=== PATIENT | female | born 1955 | race Caucasian/White ===

== ENCOUNTER 2019-05-14 10:22 | Emergency (ER) | payer MEDICARE, SELFPAY ==
--- NOTE | ~2019-05-14 | XR_ITS ---
EXAMINATION: XR chest 2V DATE: 05/14/2019 10:42 INDICATION: Left chest pain. TECHNIQUE: Frontal and lateral views of the chest were obtained. COMPARISON: Chest single view 07/19/2015 FINDINGS: There is mild scarring at the lung apices. No pleural effusion or pneumothorax. The heart s ize is normal. IMPRESSION: 1. Mild scarring at the lung apices. Reviewed, dictated and finalized at location A. RACT ENGINEER
--- NOTE | ~2019-05-14 | CT_ITS ---
EXAMINATION: CTA chest PE abdomen pel DATE: 05/14/2019 11:46 INDICATION: Left chest pain. TECHNIQUE: Computed tomography angiography (CTA) of the chest was performed with 100 mL Omnipaque-350 intravenous contrast timed to evaluate the pulmonary arteries. Coronal maximum intensity projection 3D-reconstructions were created by the technologist. Computed tomography (CT) of the abdomen and pelv is was performed with intravenous contrast. Automated exposure control and iterative reconstruction t echnique were employed. The dose-length product was 589.71 mGy-cm. COMPARISON: None. FINDINGS: CTA chest: There is mild emphysema. There is an 8 mm groundglass opacity in right lower lobe, likely benign. A calcified left lung nodule and calcified left hilar lymph nodes are consistent with old gra nulomatous disease. No pleural effusion. The heart size is normal. There are coronary artery calcific ations. No pericardial effusion. There is no pulmonary embolus. There is mild aortic atherosclerosis. There is mild thoracic spondylosis. CT abdomen and pelvis: The liver, gallbladder, pancreas, and adrenal glands are normal. Calcification s in the spleen are consistent with old granulomatous disease. There is a 6.1 cm cyst in right kidney . Left kidney is normal. There are no dilated loops of bowel. The appendix is normal. There are no pa thologically enlarged lymph nodes. There is no free intraperitoneal fluid. There is mild aortic ather osclerosis. There is mild lumbar spondylosis. IMPRESSION: 1. No pulmonary embolus. 2. Mild emphysema. Reviewed, dictated and finalized at location A. IDE POWDER PROCESSOR
--- NOTE | 2019-05-14 10:24 | ECG_ITS ---
Measurements Intervals [place] Rate: 92 P: 68 ID: 151 QRS: 52 QRSD: 89 T: 64 QT: 324 QTc: 402 Interpretive Statements SINUS RHYTHM POSSIBLE LEFT ATRIAL ENLARGEMENT BORDERLINE ECG Electronically Signed On 05-14-2019 10:51:35 AUDITING SPECIALIST by Alexx Crook D.O.
[2019-05-14 10:45] VITALS: BP 130/87; PULSE 102; RESP 18; TEMP 36.6; O2SAT 100
--- NOTE | 2019-05-14 10:50 | ED.CHESTPAIN ---
HPI - Chest Pain General Chief Complaint: Chest Pain Stated Complaint: chest pain Time Seen by Provider: 05/14/19 10:47 Source: patient Mode of arrival: ambulatory Limitations: no limitations History of Present Illness HPI narrative: Pt is a 63 y/o female who presents to the ED with c/o LUQ ABD pain/left lower CP that worsened Monday (2 days ago). She states that she has had mild pain for a while, but last night her pain worsened. She denies SOB or worsened pain when taking a deep breath. Pt states that her pain is aggravated at night when she is laying down. Pt occasionally gets pain that radiates to her back and she reports a cough. She denies back pain, shoulder pain, jaw pain, sweats, ABD distention, N/V, mid ABD pain, swelling, or leg pain. Pt is a smoker and has a H/o HLD and HTN. She denies a H/o CT, stents, COPD, or emphysema and she denies any recent surgeries. Her PCP is Dr. Anand. complaint: other (LUQ pain/lt lower chest pain.) Onset (ago): day(s) (2) Timing of current episode: episodic Onset: during rest Pain location: left chest (lower) Pain radiation: back Exacerbating factors: other (laying down) Associated symptoms: other (none) Related Data Home Medications Medication Instructions Recorded Confirmed amlodipine 05/14/19 aspirin 05/14/19 bupropion HCl mg PO 05/14/19 cholecalciferol (vitamin D3) 05/14/19 [Vitamin D3] esomeprazole magnesium mg 05/14/19 sertraline mg 05/14/19 simvastatin mg 05/14/19 Allergies Allergy/AdvReac Type Severity Reaction Status Date / Time No Known Allergies Allergy Unverified 05/14/19 11:59 Review of Systems Review of Systems: Narrative: CONSTITUTIONAL: Denies sweats ENT: Denies jaw pain CARDIOVASCULAR: Reports lt lower CP. RESPIRATORY: Reports cough. Denies SOB GASTROINTESTINAL: Reports LUQ ABD pain. Denies nausea, vomiting, ABD distention, mid ABD pain MUSCULOSKELETAL: Denies back pain, shoulder pain, leg pain, leg swelling. All systems reviewed & are unremarkable except as noted in HPI and below PMFSH Past Medical History Medical History (Updated 05/14/19 @ 12:36 by Galina Fitch MD) Arthritis Depression GERD (gastroesophageal reflux disease) History of rectal polyps HLD (hyperlipidemia) HTN (hypertension) TIA (transient ischemic attack) Surgical History Surgical History (Updated 05/14/19 @ 11:59 by Les Mcghee) H/O repair of left rotator cuff H/O tubal ligation Family History Family History (Updated 07/18/18 @ 09:33 by DOCTOR UNKNOWN) Mother Depression Family history of elevated blood lipids Family history of cardiovascular disease Family history of lung cancer Father Hypertension Family history of kidney disease Grandparent Carcinoma of colon Sibling Family history of sudden Social History Social History Smoking status: Light tobacco smoker Second hand tobacco smoke exposure: No Alcohol intake: current Gender identity (if verbalized by the patient): Female Exam Narrative: Exam Narrative: GENERAL: Well-appearing, well-nourished, and in no acute distress. HEAD: Normocephalic, atraumatic. EYES: PERRLA and EOMI. ENT: Nares clear, no rhinorrhea or epistaxis. Mucous membranes moist. NECK: Supple. CHEST: Coarse breath sounds and lt sided wheezing. No respiratory distress. HEART: Regular rate and rhythm. No murmur heard. Normal peripheral pulses. ABDOMEN: Soft, LUQ tenderness, nondistended, normal active bowel sounds. No flank tenderness EXTREMITIES: Normal range of motion. No edema. SKIN: Warm, dry, no rash. NEURO: No focal deficits. Alert and oriented X3. Course Course Emergency Course: Patient presenting for evaluation of left lower chest pain abdominal pain that has been present over the past 2 days. At the time of initial assessment, ABCs are intact. Vital signs are stable. Physical exam is notable for left upper quadrant tenderness, there is n
[2019-05-14 10:53] LABS: Basophils Percent Auto 0.5 % (0.2-1.2); Eosinophils Absolute Auto 0.1 K/mm3 (0-0.3); Eosinophils Percent Auto 1.7 % (0-4.4); Hematocrit 43.4 % (37.0-47.0); Hemoglobin 14.3 g/dL (12.0-15.0); Immature Granulocyte Absolute 0.02 K/mm3 (0.00-0.031); Immature Granulocyte Percent A 0.2 % (0-0.5); Lymphocytes Absolute Auto 2.22 K/mm3 (0.9-3.2); Lymphocytes Percent Auto 27.7 % (18.3-44.2); Mean Corpuscular HGB Conc 32.9 g/dl (32-36); Mean Platelet Volume 10.2 fl (7.4-10.4); Monocytes Absolute Auto 0.8 K/mm3 (0.1-0.6); Monocytes Percent Auto 10.1 % (2.6-8.5); Neutrophils Absolute Auto 4.8 K/mm3 (1.3-6.7); Neutrophils Percent Auto 59.8 % (45.5-73.1); Platelet Count Result 344 k/mm3 (150-375); Red Blood Count 4.77 M/mm3 (4.2-5.4); Red Cell Distribution Width 13.1 % (11.5-14.5)
[2019-05-14 11:02] LABS: INR 0.9; Prothrombin Time 11.8 Seconds (11.1-14.7)
[2019-05-14 11:03] LABS: Partial Thromboplastin Time 27.5 SECONDS (22.3-36.8)
[2019-05-14 11:21] LABS: Blood Urea Nitrogen 15 mg/dL (7-17); Calcium 9.5 mg/dL (8.4-10.2); Carbon Dioxide 23 mmol/L (22-30); Chloride 102 mmol/L (98-107); Estimated Glomerular Filt Rate > 60; Glucose 113 mg/dL (65-105); Sodium 139 mmol/L (137-145)
[2019-05-14 11:28] LABS: Troponin I < 0.012 ng/mL (0.000-0.034)
[2019-05-14 11:38] LABS: Alanine Aminotransferase 16 U/L (4-35); Albumin Level 4.8 g/dL (3.5-5.1); Alkaline Phosphatase 101 U/L (38-126); Aspartate Amino Transferase 29 U/L (14-36); Bilirubin,Total 0.5 mg/dL (0.2-1.3); Lipase 172 U/L (23-300)
[2019-05-14 11:51] VITALS: PULSE 88; O2SAT 100
[2019-05-14 11:53] VITALS: BP 156/73; PULSE 88; RESP 18; TEMP 36.6; O2SAT 100
[2019-05-14 11:58] LABS: Potassium 4.4 mmol/L (3.4-5.0)
[2019-05-14 12:31] VITALS: BP 125/92; PULSE 78; RESP 13; TEMP 36.6; O2SAT 99
[2019-05-14 12:55] VITALS: BP 125/92; PULSE 82; RESP 9; O2SAT 98
== END 2019-05-14 12:56 | disposition home or self-care (01) ==
PROVIDERS: Emergency Provider Emergency Medicine; PCP Family Medicine
DX: R10.12 Left upper quadrant pain (principal); E78.5 Hyperlipidemia, unspecified; I10 Essential (primary) hypertension; M19.90 Unspecified osteoarthritis, unspecified site; K21.9 Gastro-esophageal reflux disease without esophagitis; Z86.73 Personal history of transient ischemic attack (TIA), and cerebral infarction without residual deficits; F17.200 Nicotine dependence, unspecified, uncomplicated; R94.31 Abnormal electrocardiogram [ECG] [EKG]
CPT/HCPCS: 36415; 71046; 71275; 74177; 80048; 80076; 83690; 84484; 85025; 85610; 85730; 93005; 99284; Q9967

== ENCOUNTER → 2020-09-30 10:44 | Outpatient (CLI) | payer MEDICARE, SELFPAY ==
--- NOTE | ~2020-09-30 | DEXA_ITS ---
Bone Density Report Name: Zena Stone Age: 65 Sex: Female Ethnicity: White Date of : 1955 Indication: postmenopausal; screening for osteoporosis; Referring Provider: Lauren Cardona Study: Bone densitometry was performed. Exam Date: September 30, 2020 Accession number: [id number] Bone Density: Region BMD T-score Z-score Classification AP Spine (L1-L4) 0.910 -1.2 0.7 Osteopenia Femoral Neck (Left) 0.785 -0.6 1.0 Normal Total Hip (Left) 0.825 -1.0 0.4 Normal Femoral Neck (Right) 0.745 -0.9 0.7 Normal Total Hip (Right) 0.838 -0.9 0.5 Normal Total Hip Mean 0.832 -1.0 0.5 Normal World Health Organization criteria for BMD impression classify patients as: Normal (T-score at or above -1.0), Osteopenia (T-score between -1.0 and -2.5), or Osteoporosis (T-score at or below -2.5). 10-year Fracture Risk(1): Major Osteoporotic Fracture 7.5% Hip Fracture 1.0% Reported Risk Factors: [place] (), Neck BMD=0.745, BMI=21.9, smoking (1) FRAX(R) Version 3.08. Fracture probability calculated for an untreated patient. Fracture probability may be lower if the patient has received treatment. Clinical Information Provided by Patient: Smokes Patient maximum height was 63.3 Menopause Age: 47 Drinks caffeinated beverages Onset of menses at age 10 Number of children 3 Impression: The patient has low bone mass, based on the Total Spine T-score. The patient has an estimated ten-year risk of hip fracture of 1% and an estimated ten-year risk of major fracture of 7.5%, based on the WHO FRAX algorithm. The patient has risk factors, including: smoking. Discussion: BONE DENSITY IS LOW AT ONE OR MORE SKELETAL SITES. This patient's lowest T-score is low at one or more skeletal sites. It meets the World Health Organization's (WHO) criteria for ?low bone mass? (T-score between -1.0 and -2.5). The patient's 10-year risk of fracture as calculated by FRAX is less than the threshold where pharmacological therapy is recommended by the National Osteoporosis Foundation (NOF). However, all treatment decisions require clinical judgment and consideration of individual patient factors, including patient preferences, comorbidities, previous drug use, risk factors not captured in the FRAX model (e.g., frailty, falls, vitamin D deficiency, increased bone turnover, interval significant decline in bone density) and possible under or overestimation of fracture risk by FRAX. The patient should follow a healthful lifestyle (good nutrition with adequate calcium and vitamin D, and appropriate weight-bearing exercise). Follow-Up: Consider repeating this study in 2 to 3 years to reassess this patient's status, or sooner if there is some new clinical indication. Reported by: RUBI on 09/30/2020 11:07:00 AM.
--- NOTE | ~2020-09-30 | MM_ITS ---
EXAMINATION: MM screening ara BI w blaine HISTORY: Screening TECHNIQUE: Craniocaudal and mediolateral oblique 3-D tomosynthesis images were obtained and synthetic 2-D images were generated. CAD analysis was submitted and interpreted. COMPARISON: No prior mammogram is available for comparison at this institution. BREAST PARENCHYMAL COMPOSITION: There are scattered areas of fibroglandular density. FINDINGS: There is no evidence of suspicious mass, calcification, or architectural distortion to sugg est malignancy in either breast. There has been no suspicious interval change. IMPRESSION: 1. No mammographic evidence of malignancy. 2. Recommend routine screening mammography in one year. BI-RADS Category 1: Negative Reviewed, dictated and finalized at location A.
== END ==
PROVIDERS: PCP Family Medicine; Visit Provider Physician Assistant
DX: Z12.31 Encounter for screening mammogram for malignant neoplasm of breast (principal); Z78.0 Asymptomatic menopausal state; M85.88 Other specified disorders of bone density and structure, other site
CPT/HCPCS: 77063; 77067; 77080

== ENCOUNTER 2021-02-12 15:10 | Outpatient (CLI) | payer MEDICARE, SELFPAY ==
[2021-02-12 16:03] LABS: Anion Gap 8 mmol/L (8-16); Blood Urea Nitrogen 10 mg/dL (7-17); Calcium 9.4 mg/dL (8.4-10.2); Carbon Dioxide 30 mmol/L (22-30); Chloride 97 mmol/L (98-107); Estimated Glomerular Filt Rate > 60; Glucose 105 mg/dL (65-110); Potassium 4.2 mmol/L (3.4-5.0); Sodium 135 mmol/L (137-145)
== END 2021-02-12 15:11 | disposition home or self-care (01) ==
LOC: ANHLAB 15:13
PROVIDERS: PCP Family Medicine; Visit Provider Physician Assistant
DX: E87.5 Hyperkalemia (principal)
CPT/HCPCS: 36415; 80048

== ENCOUNTER → 2021-04-12 09:28 | Outpatient (CLI) | payer MEDICARE, SELFPAY ==
--- NOTE | ~2021-04-12 | XR_ITS ---
EXAMINATION: XR chest 2V DATE: 04/12/2021 09:44 INDICATION: Shortness of breath. TECHNIQUE: Frontal and lateral views of the chest were obtained. COMPARISON: Chest CT 05/14/2019, chest 2 views 05/14/2019 FINDINGS: There is a thick-walled cavitary mass with air/fluid level in superior segment left lower l obe. There are airspace opacities in lingula. No pleural effusion or pneumothorax. The heart size is normal. IMPRESSION: 1. Thick-walled cavitary mass in superior segment left lower lobe, consistent with abscess versus andrea evelio bronchogenic carcinoma. Chest CT with contrast is recommended. 2. Airspace opacities in lingula, consistent with atelectasis versus pneumonia. Reviewed, dictated and finalized at location A. DDED SOFTWARE DEVELOPMENT ENGINEER IMPRESSION: 1. Thick-walled cavitary mass in superior segment left lower lobe, consistent w ith abscess versus primary bronchogenic carcinoma. Chest CT with contrast is re commended. 2. Airspace opacities in lingula, consistent with atelectasis versus pneumonia.
== END ==
PROVIDERS: PCP Family Medicine; Visit Provider Physician Assistant
DX: R06.02 Shortness of breath (principal); R91.8 Other nonspecific abnormal finding of lung field
CPT/HCPCS: 71046

== ENCOUNTER 2021-04-15 07:49 | Outpatient (CLI) | payer MEDICARE, SELFPAY ==
--- NOTE | ~2021-04-15 | CT_ITS ---
EXAMINATION:CT diagnostic chest w con DATE: 04/15/2021 08:24 INDICATION: Abnormal findings in lung field. Lung mass. TECHNIQUE: Computed tomography (CT) of the chest was performed with 75 mL Omnipaque 350 intravenous c ontrast. Automated exposure control and iterative reconstruction technique were employed. The dose-le ngth product (DLP) was 131.31 mGy-cm. COMPARISON: Chest CT 05/14/2019, chest 2 views 04/12/2021 FINDINGS: There is mild emphysema. There is a 1.5 cm part solid nodule in right lower lobe, likely in fection. There is an 8.4 x 6.9 cm thick-walled cavitary mass with air/fluid level in left lower lobe. There are airspace and groundglass opacities and septal thickening involving left lower lobe around the mass and at the lung base. Calcified left lung nodules and calcified left hilar and mediastinal l ymph nodes are consistent with old granulomatous disease. There is bulky left hilar and aorticopulmon preethi window lymphadenopathy with mass effect on left main pulmonary artery. There is a trace left pleu ral effusion. The heart size is normal. There is a small pericardial effusion. There are coronary art benja calcifications. There is a 6.3 cm cyst in right kidney. There is mild thoracic spondylosis. IMPRESSION: 1. 8.4 x 6.9 cm thick-walled cavitary mass with air/fluid level in left lung lower lobe suspicious fo r primary bronchogenic carcinoma. CT-guided core needle biopsy is recommended. 2. Bulky left hilar and aorticopulmonary window lymphadenopathy suspicious for metastatic disease. 3. Airspace and groundglass opacities and septal thickening in left lower lobe and part solid nodule in right lower lobe, likely a combination of pneumonia and mild pulmonary edema. 4. Mild emphysema. 5. Small pericardial effusion. Reviewed, dictated and finalized at location E. SORTER IMPRESSION: 1. 8.4 x 6.9 cm thick-walled cavitary mass with air/fluid level in left lung lo wer lobe suspicious for primary bronchogenic carcinoma. CT-guided core needle b iopsy is recommended. 2. Bulky left hilar and aorticopulmonary window lymphadenopathy suspicious for metastatic disease. 3. Airspace and groundglass opacities and septal thickening in left lower lobe and part solid nodule in right lower lobe, likely a combination of pneumonia an d mild pulmonary edema. 4. Mild emphysema. 5. Small pericardial effusion.
[2021-04-15 08:14] LABS: Estimated Glomerular Filt Rate > 60
== END 2021-04-15 07:50 | disposition home or self-care (01) ==
LOC: ANHIMG 07:54
PROVIDERS: PCP Family Medicine; Visit Provider Physician Assistant
DX: R91.8 Other nonspecific abnormal finding of lung field (principal); R59.0 Localized enlarged lymph nodes; J43.9 Emphysema, unspecified; I31.3 Pericardial effusion (noninflammatory)
CPT/HCPCS: 71260; Q9967

== ENCOUNTER 2021-04-16 11:38 | Inpatient (IN) | payer MEDICARE, MEDICAID, SELFPAY ==
[2021-04-16] VITALS (18 sets, daily range): BP systolic 80–124; BP diastolic 44–63; PULSE 95–124; RESP 16–24; TEMP 36.2–37.8; O2SAT 92–99; BMI 22.9
--- NOTE | ~2021-04-16 | XR_ITS ---
EXAMINATION: XR fl bronchoscopy w imaging DATE: 04/22/2021 11:26 INDICATION: Left lung abscess TECHNIQUE: 2 fluoroscopic images of the left chest were obtained during procedure performed by Dr. Claudia rodrigues. Radiologist was not present for the imaging or procedure. The amount of fluoroscopy time used d uring this procedure was 1.1 minutes. COMPARISON: CT dated 04/22/2021 FINDINGS: Images demonstrate a bronchoscope extending into the left mainstem bronchus. On the second image the proximal loop is been advanced and the wire extends peripherally towards the previously noted thick-w alled cavitary mass. IMPRESSION: 1. Fluoroscopy utilized during bronchoscopy for assessment of a left lower lobe cavitary mass. See pr ocedure note for further detail. Reviewed, dictated and finalized at location A. NISTRATIVE PROJECT COORDINATOR IMPRESSION: 1. Fluoroscopy utilized during bronchoscopy for assessment of a left lower lobe cavitary mass. See procedure note for further detail.
--- NOTE | ~2021-04-16 | XR_ITS ---
EXAMINATION: XR chest 1V portable DATE: 04/22/2021 11:35 INDICATION: Left lung abscess post bronchoscopy TECHNIQUE: frontal view of the chest was obtained. COMPARISON: Chest radiograph dated 04/21/2021 FINDINGS: Air-fluid level within a thick-walled cavitary mass in the left lung which is decreased in size since the prior study. Right lung is clear. No pleural effusion or pneumothorax. The cardiomediastinal tiffanie houette is normal. Visualized bones and soft tissues are unremarkable. IMPRESSION: 1. Slight decrease in size of a gas and fluid-filled thick-walled cavitary mass in the left lower lob e concerning for pneumonia with pulmonary abscess with less likely differential including malignancy. Reviewed, dictated and finalized at location A. Y OPERATOR IMPRESSION: 1. Slight decrease in size of a gas and fluid-filled thick-walled cavitary mass in the left lower lobe concerning for pneumonia with pulmonary abscess with le ss likely differential including malignancy.
--- NOTE | ~2021-04-16 | XR_ITS ---
EXAMINATION: XR chest 1V portable DATE: 04/21/2021 08:22 INDICATION: Left lung abscess TECHNIQUE: frontal view of the chest was obtained. COMPARISON: Chest radiograph dated 04/19/2021 FINDINGS: Slight decrease in size of a thick-walled cavitary mass containing some dependently layering fluid lo cated in the left lower lung zone. Mild reticular opacities in the left lower lung zones which could represent mild pulmonary edema or pneumonia. Right lung remains clear. No pneumothorax or right pleur al effusion. Trace left pleural effusion. Heart size is normal. Mediastinal lymphadenopathy at the AP window. IMPRESSION: 1. Slight decrease in size of a thick-walled cavitary lesion in the left midlung zone consistent with provided history of pulmonary abscess. 2. Mild reticular pulmonary edema versus pneumonia in the left lower lung zone. 3. AP window lymphadenopathy. Reviewed, dictated and finalized at location A. E MACHINE OFFBEARER IMPRESSION: 1. Slight decrease in size of a thick-walled cavitary lesion in the left midlun g zone consistent with provided history of pulmonary abscess. 2. Mild reticular pulmonary edema versus pneumonia in the left lower lung zone. 3. AP window lymphadenopathy.
--- NOTE | ~2021-04-16 | XR_ITS ---
EXAMINATION: XR chest 1V portable EXAM DATE: 04/19/2021 09:04 INDICATION: Left lung cavity TECHNIQUE: Portable AP frontal chest x-ray was obtained. Comparison is made to prior examination from 04/16/2021. FINDINGS: Large left midlung zone cavitary mass with air-fluid level unchanged. Increased reticular m arkings inferior to this without confluent consolidation. Possible carcinomatosis. The lungs are hype rinflated which can be seen with chronic obstructive pulmonary disease (a clinical diagnosis of funct ional impairment), but is not diagnostic of it. There is no pneumothorax suspected. There are no pleu ral effusions. There are no osseous abnormalities identified. There is aortic arteriosclerosis. Cardi omediastinal silhouette is normal. IMPRESSION: 1. Large left midlung cavitary mass with air fluid level and adjacent abnormal reticulation unchanged . 2. Hyperinflation. Reviewed, dictated and finalized at location B. Y FARMER IMPRESSION: 1. Large left midlung cavitary mass with air fluid level and adjacent abnormal reticulation unchanged. 2. Hyperinflation.
--- NOTE | ~2021-04-16 | CT_ITS ---
EXAMINATION: CT diagnostic chest wo con EXAM DATE: 04/22/2021 07:42 INDICATION: Left lung abscess . TECHNIQUE: Spiral CT of the chest without contrast. Axial, coronal and sagittal images of the chest were reviewed. Coronal maximum intensity pixel images of chest reviewed. The dose-length product ( DLP) for this examination was 145.05 mGy-cm. The exposure was tailored according to patient size (au to mA exposure control), and iterative reconstruction (ASIR) was used as additional dose reduction te chnique. Comparison is made to prior examination from 04/15/2021. FINDINGS: There is thick walled left lower lobe cavitary mass, with interval decrease in size of the cystic component which today measures 5.6 x 4.3 cm versus 8.0 x 5.3 cm one week ago. The wall of this cavitary lesion appears thicker than on prior study. Again there is trace left pleural effusion. Tra ce pericardial effusion. Heart normal in size. Mild emphysema and moderate hyperinflation. Small patc h of right lower lobe reticulonodular opacities, infectious or postinfectious. Mild coronary artery c alcifications. Pathologically enlarged left hilar and aortopulmonary window lymph nodes, one of the larger lymph nod es in the aortopulmonary window measuring 2.3 x 1.8 cm. Faint calcification pattern somewhat peripher al in the hilar lymph nodes suggesting chronic granulomatous process such as silicosis, pneumoconiosi s, sarcoidosis, histoplasmosis. Metastatic lymphadenopathy not excludable. Right renal cyst measuring 6 cm. IMPRESSION: 1. Cavitary left lung mass with air-fluid level, could be infected abscess with or without underlyin g malignancy. Decrease in size of cavity size. 2. Enlarged left hilar, mediastinal lymphadenopathy, differential diagnosis including chronic granul omatous process, metastatic disease. 3. Emphysema and hyperinflation. 4. Small pericardial effusion. Reviewed, dictated and finalized at location B. LE SCHOOL SCIENCE TEACHER IMPRESSION: 1. Cavitary left lung mass with air-fluid level, could be infected abscess wit h or without underlying malignancy. Decrease in size of cavity size. 2. Enlarged left hilar, mediastinal lymphadenopathy, differential diagnosis in cluding chronic granulomatous process, metastatic disease. 3. Emphysema and hyperinflation. 4. Small pericardial effusion.
--- NOTE | ~2021-04-16 | XR_ITS ---
EXAMINATION: XR chest 2V DATE: 04/16/2021 12:19 INDICATION: COVID 2 weeks prior presenting with new onset shortness of breath TECHNIQUE: PA and lateral views of the chest were obtained. COMPARISON: Chest radiograph dated 04/12/2021 FINDINGS: Again seen is an air-fluid level within a thick-walled cavitary mass in the superior segment of the l eft lower lobe. Persistent mild primarily reticular opacities in the more caudal left lower lobe. No new airspace opacities, pleural effusion or pneumothorax. Heart size is normal. Mild thoracic spondyl osis. IMPRESSION: 1. Unchanged air-fluid level within a thick-walled cavitary mass in the superior segment of the left lower lobe concerning for primary bronchogenic carcinoma. 2. Reticular opacities in the left lower lobe which could represent pneumonia or lymphangitic carcino matosis. Reviewed, dictated and finalized at location A. N CAPITAL ANALYST IMPRESSION: 1. Unchanged air-fluid level within a thick-walled cavitary mass in the superio r segment of the left lower lobe concerning for primary bronchogenic carcinoma. 2. Reticular opacities in the left lower lobe which could represent pneumonia o r lymphangitic carcinomatosis.
--- NOTE | ~2021-04-16 | XR_ITS ---
EXAMINATION: XR chest 2V DATE: 04/26/2021 10:16 INDICATION: Left lung abscess TECHNIQUE: PA and lateral views of the chest are obtained. COMPARISON: 04/22/2021 FINDINGS: There is a persistent ill-defined opacity in the left lower lobe which demonstrates slight decrease in size. Previously seen cavitation is also decreased in size. There there are minimal airsp steve opacities of the right lower lobe. There is a small left pleural effusion. The cardiomediastinal silhouette is normal. There is mild thoracic spondylosis. IMPRESSION: 1. Decrease in cavitary mass of the left lower lobe, likely pulmonary abscess. Pulmonary cytology pen ding. 2. Small left pleural effusion. Reviewed, dictated and finalized at location A. ER RUNNER IMPRESSION: 1. Decrease in cavitary mass of the left lower lobe, likely pulmonary abscess. Pulmonary cytology pending. 2. Small left pleural effusion.
--- NOTE | ~2021-04-16 | US_ITS ---
EXAMINATION: US renal BI EXAM DATE: 04/22/2021 16:01 INDICATION: TINA/ARF TECHNIQUE: Multiple grayscale and Doppler images of the kidneys were obtained (by a technologist who performed the scan) and subsequently reviewed. There is no prior study for comparison. FINDINGS: Right kidney: There is normal contour and mildly increased echogenicity. It measures 13.6 x 5.9 x 6. 9 centimeters. There is a 5 cm cyst. There is no hydronephrosis. Left kidney: There is normal contour and mildly increased echogenicity. It measures 12.2 x 6.3 x 5.2 centimeters. There are no focal renal lesions identified. There is no hydronephrosis. Bladder unremarkable. IMPRESSION: 1. Mildly echogenic renal cortices, medical renal disease. 2. No hydronephrosis. Reviewed, dictated and finalized at location B. RWRITING CONSULTANT
--- NOTE | 2021-04-16 12:05 | ECG_ITS ---
Measurements Intervals [place] Rate: 114 P: 82 [place]: 126 QRS: 58 QRSD: 86 T: 57 QT: 300 QTc: 414 Interpretive Statements SINUS TACHYCARDIA BASELINE ARTIFACT- I, II, III, AVR, AVL, AVF, V1-V3 ABNORMAL ECG Electronically Signed On 04-16-2021 12:11:27 SENIOR QUALITY ASSURANCE ANALYST by Alexx Crook D.O.
--- NOTE | 2021-04-16 12:30 | ED.SOB ---
HPI - SOB/Dyspnea General Chief Complaint: Shortness of Breath/Dyspnea Stated Complaint: sent to be admitted Time Seen by Provider: 04/16/21 12:16 Source: patient Mode of arrival: ambulatory Limitations: no limitations History of Present Illness HPI Narrative: Patient is a six 5-year-old female complain of shortness of breath, accompanied by cough, low oxygen saturation and fever x2 weeks. Patient states that she is seen her doctor for this a few times and was prescribed Levaquin last week chest x-ray ordered. Patient's PCP recently ordered a CT scan due to the above complaints, was done yesterday at this facility, and was told today she needed to go to the emergency room for IV antibiotics . Patient denies any chest pain, abdominal pain, nausea, vomiting, diarrhea, urinary symptoms or rash. Related Data Home Medications Medication Instructions Recorded Confirmed aspirin 05/14/19 04/05/21 Allergies Allergy/AdvReac Type Severity Reaction Status Date / Time No Known Allergies Allergy Verified 02/08/21 09:49 Review of Systems Review of Systems: All systems reviewed & are unremarkable except as noted in HPI and below Constitutional: Constitutional: Denies body ache(s), Denies excessive sweating, Denies fatigue, Denies headache(s), Denies lethargy, Denies malaise, Denies weakness and Denies weight loss Eyes: Eyes: Denies blurry vision, Denies change in vision and Denies loss of vision ENT: Denies dizziness, Denies ear discharge, Denies headache(s), Denies lip swelling, Denies epistaxis, Denies nasal congestion, Denies neck pain, Denies throat swelling and Denies tongue swelling Cardiovascular: Cardiovascular: Denies chest pain, Denies chest pain at rest, Denies chest pain with activity, Denies diaphoresis, Denies rapid heart rate, Denies edema, Denies irregular heart rhythm, Denies lightheadedness and Denies palpitations Respiratory: Respiratory: Denies chest congestion, Denies cough and Denies hemoptysis Gastrointestinal: Gastrointestinal: Denies abdominal pain, Denies melena, Denies hematochezia, Denies diarrhea, Denies nausea, Denies vomiting and Denies hematemesis Musculoskeletal: Musculoskeletal: Denies abnormal gait, Denies deformity, Denies joint swelling, Denies limited range of motion, Denies neck pain and Denies numbness Neurologic: Denies Abnormal speech present, Denies abnormal gait, Denies confusion, Denies dizziness, Denies headache(s), Denies focal weakness, Denies loss of vision, Denies numbness, Denies Other visual disturbances, Denies Sensory deficit (Neuro) and Denies weakness Psychiatric: Psychiatric: Denies confusion, Denies depression, Denies auditory hallucinations, Denies homicidal ideation and Denies suicidal ideation Endocrine: Endocrine: Denies cold intolerance, Denies excessive sweating, Denies fatigue, Denies heat intolerance and Denies palpitations Hematologic/Lymphatic: Hematologic/Lymphatic: Denies easy bleeding and Denies easy bruising Allergic/Immunologic: Allergic/Immunologic: Denies lip swelling, Denies throat swelling and Denies tongue swelling PMFSH Past Medical History Medical History Arthritis Depression GERD (gastroesophageal reflux disease) History of COVID-19 History of rectal polyps HLD (hyperlipidemia) HTN (hypertension) TIA (transient ischemic attack) Surgical History Surgical History H/O repair of left rotator cuff H/O tubal ligation Family History Family History Mother Depression Family history of elevated blood lipids Family history of cardiovascular disease Family history of lung cancer Father Hypertension Family history of kidney disease Grandparent Carcinoma of colon Sibling Family history of sudden Social History Social History (Reviewed 04/16/21 @ 12:34 by George Ritter
[2021-04-16 13:16] LABS: Hemoglobin 12.3 g/dL (12.0-15.0); Mean Corpuscular HGB Conc 33.2 g/dl (32-36); Mean Corpuscular Hemoglobin 29.5 pg (26-34); Mean Corpuscular Volume 88.7 fl (80-100); Mean Platelet Volume 9.2 fl (7.4-10.4); Platelet Count Result 641 k/mm3 (150-375); Red Blood Count 4.17 M/mm3 (4.2-5.4); Red Cell Distribution Width 13.2 % (11.5-14.5)
[2021-04-16 13:27] LABS: INR 1.1; Prothrombin Time 14.5 Seconds (11.1-14.7)
[2021-04-16 13:28] LABS: Lactic Acid Reflex 1.1 mmol/L (0.7-2.1)
[2021-04-16] MEDS: ACETAMINOPHEN 325 MG TABLET 650 MG PO (13:31)
[2021-04-16 13:36] LABS: Alanine Aminotransferase 19 U/L (4-35); Albumin Level 3.3 g/dL (3.5-5.1); Alkaline Phosphatase 156 U/L (38-126); Anion Gap 7 mmol/L (8-16); Aspartate Amino Transferase 30 U/L (14-36); Bilirubin,Total 0.5 mg/dL (0.2-1.3); Blood Urea Nitrogen 14 mg/dL (7-17); Calcium 8.8 mg/dL (8.4-10.2); Carbon Dioxide 29 mmol/L (22-30); Chloride 94 mmol/L (98-107); Estimated CRCL calculation 56 ml/min; Estimated Glomerular Filt Rate > 60; Glucose 104 mg/dL (65-110); Potassium 3.9 mmol/L (3.4-5.0); Sodium 130 mmol/L (137-145)
[2021-04-16 13:44] LABS: Band Neutrophils Percent 1 % (0-6); Lymphocytes Absolute Manual 1.35 K/mm3 (1.1-4.5); Monocytes Absolute Manual 2.43 K/mm3 (0.1-0.90); Monocytes Percent Manual 9 % (3-9); Neutrophils Absolute Manual 23.22 K/mm3 (1.7-7.2); Neutrophils Percent Manual 85 % (46-73); Total Cells Counted 100
[2021-04-16 13:45] LABS: Platelet Estimate Adequate (Adequate)
[2021-04-16 13:46] LABS: Hypochromasia 1+ (NORMAL)
[2021-04-16] MEDS: ALBUTEROL SULFATE NEB 2.5 MG/0.5 ML INH 5 MG INHALATION ×2 (14:21→19:54)
[2021-04-16] MEDS: IPRATROPIUM BR 0.02% INH SOLN 0.5 MG/2.5 ML VIAL INHALATION ×2 (14:21→19:54)
[2021-04-16] MEDS: PIPERACILLIN/TAZOBACTAM SOD 4.5 GM in SODIUM CHLORIDE 0.9% IV 100 ML 200 ML IVPB (14:26)
[2021-04-16] MEDS: DEXAMETHASONE SOD PHOS INJ 4 MG/ML VIAL 10 MG IV PUSH (14:26)
[2021-04-16 14:29] LABS: SARS-CoV-2 RNA PCR Negative
--- NOTE | 2021-04-16 15:50 | PM.IMHP ---
H&P: HPI History of Present Illness Date/Time: 04/16/21 15:50 Chief Complaint: Cough, abnormal chest imaging. Narrative: This is a 65-year-old female smoker with hypertension and hyperlipidemia who presented to the emergency department from Dr. zelaya office for evaluation of cough and abnormal chest imaging. She tested positive for COVID-19 on 02/28/2021 and she seemed to be feeling better right around the new year, able to do her typical activities of daily living. Over the past 7 to 10 days however her cough has become worse and it is now productive of [place] and occasionally pink-tinged brown to green sputum. She has also developed left-sided pleuritic chest pain, mild shortness of breath, sweats, fatigue, decreased appetite, and poor oral intake. Due to ongoing symptoms she was seen by Lauren Cardona PA-C on 04/05/2021 at which time she was prescribed a prednisone taper and levofloxacin. She completed the antibiotic and had a chest x-ray done the following week which showed a thick-walled cavitary mass in the superior segment of the left lower lobe consistent with abscess verses primary bronchogenic carcinoma. A subsequent chest CT taken yesterday showed an 8.4 x 6.9 cm thick walled cavitary mass with air/fluid level in the left lower lobe suspicious for primary bronchogenic carcinoma with bulky left hilar and aortic or pulmonary window lymphadenopathy suspicious for metastatic disease and findings of pulmonary edema and/ or mild pulmonary edema in the lower lobes. No pulmonary embolism was noted. She was seen in the office today for follow-up and due to ongoing cough, pleuritic pain, and CT findings she was directed to the emergency department. On arrival to the emergency department she had a low-grade temperature of 100.1? and her blood pressures have been running in the high 80s to low 90s systolic. She was not feeling febrile but again mentions having sweats and occasional chills. She denies headache, neck ache, sinus congestion, sore throat, exertional chest pain, orthopnea, PND, lower extremity edema, vomiting, and diarrhea. She has not lost any weight recently but notes a 25 lb weight loss in the last year or so. In fact she lost enough weight that her amlodipine dose was cut in half several months ago. She does not monitor her blood pressure at home and she is asymptomatic with her soft blood pressures today. Review of Systems Review of Systems: Twelve systems were reviewed and are negative except for as per HPI. [facility] Past Medical History Medical History (Updated 04/16/21 @ 15:05 by Jina Fried PA-C) Arthritis COVID-19 (02/2021) Depression Gastroesophageal reflux disease History of rectal polyps Hyperlipidemia Hypertension Tobacco abuse Transient ischemic attack (07/2015) Surgical History Surgical History (Updated 04/16/21 @ 14:58 by Jina Fried PA-C) History of colonoscopy with polypectomy History of repair of left rotator cuff History of tubal ligation Family History Family History Mother Lung cancer Father Hypertension Congestive heart failure Renal failure Grandparent Carcinoma of colon Sibling Acute myocardial infarction Social History Social History (Updated 04/16/21 @ 21:02 by Jina Fried PA-C) Social History: Surrogate decision maker: [place], . Code status: Full code. Smoking packs per day: 1 Smoking cigarettes per day: 20.0 Years smoked: 45 Smoking pack-years: 45.00 Tobacco type: cigarettes Second hand tobacco smoke exposure: No Alcohol intake: never Substance use: never Substance use type: does not use Additional living arrangements comments: The patient lives with her in [place]. Additional occupation/education comments: Retired. Meds Home Medications and Allergies Home Medications Medication Instructions Recorded Confirmed Type aspirin 81 mg PO DAILY
--- NOTE | 2021-04-16 16:35 | PC.NURSE ---
ordered pt dinner tray.
[2021-04-16] MEDS: LACTATED RINGERS 1,000 ML 125 ML IV CONT (16:36)
[2021-04-16 22:25] LABS: Anion Gap 6 mmol/L (8-16); Blood Urea Nitrogen 15 mg/dL (7-17); Calcium 8.2 mg/dL (8.4-10.2); Carbon Dioxide 24 mmol/L (22-30); Chloride 100 mmol/L (98-107); Estimated CRCL calculation 56 ml/min; Estimated Glomerular Filt Rate > 60; Glucose 242 mg/dL (65-110); Magnesium 1.4 mg/dL (1.6-2.3); Potassium 3.9 mmol/L (3.4-5.0); Sodium 130 mmol/L (137-145)
--- NOTE | 2021-04-16 22:25 | ADMGEN ---
This patient, Zena Stone, was admitted to IMU Room 205-01. Patient/family oriented to hospital policies and general routines including ID bracelet, bed and alarms, visiting hours, pain management, procedures, bathroom and other care routines, personal items, smoking policy, room service/diet, and visiting hours. Information on how to activate the Rapid Response Team has been discussed. Patient/Family are encouraged to report perceived risks to care and to ask questions if they do not understand what they are told or what they should do.
[2021-04-16 22:29] LABS: Procalcitonin 0.3 ng/mL
[2021-04-16 23:29] LABS: Creatinine Urine 96.3 mg/dL
[2021-04-16 23:44] LABS: Sodium Urine Random 23 meq/L
[2021-04-17] VITALS (30 sets, daily range): BP systolic 91–118; BP diastolic 47–73; PULSE 87–112; RESP 16–20; TEMP 35.8–37.2; O2SAT 87–95
[2021-04-17] MEDS: MAGNESIUM SULF 2 GM/WATER 50ML 2 GM/50 ML BAG IVPB (00:13)
[2021-04-17] MEDS: SIMVASTATIN 20 MG TABLET PO ×2 (01:07→21:23)
[2021-04-17] MEDS: IPRATROPIUM BR 0.02% INH SOLN 0.5 MG/2.5 ML VIAL INHALATION ×4 (03:16→20:35)
[2021-04-17] MEDS: ALBUTEROL SULFATE NEB 2.5 MG/0.5 ML INH 5 MG INHALATION ×4 (03:16→20:35)
[2021-04-17 05:01] LABS: Hemoglobin 10.6 g/dL (12.0-15.0); Mean Corpuscular HGB Conc 33.1 g/dl (32-36); Mean Corpuscular Volume 87.4 fl (80-100); Mean Platelet Volume 9.5 fl (7.4-10.4); Platelet Count Result 634 k/mm3 (150-375); Red Blood Count 3.66 M/mm3 (4.2-5.4); Red Cell Distribution Width 13.2 % (11.5-14.5); White Blood Count 24.2 K/mm3 (4.5-10.0)
[2021-04-17 05:38] LABS: Alanine Aminotransferase 17 U/L (4-35); Albumin Level 2.7 g/dL (3.5-5.1); Alkaline Phosphatase 145 U/L (38-126); Anion Gap 7 mmol/L (8-16); Aspartate Amino Transferase 23 U/L (14-36); Bilirubin,Total 0.1 mg/dL (0.2-1.3); Blood Urea Nitrogen 14 mg/dL (7-17); Calcium 8.3 mg/dL (8.4-10.2); Carbon Dioxide 24 mmol/L (22-30); Chloride 99 mmol/L (98-107); Estimated CRCL calculation 56 ml/min; Estimated Glomerular Filt Rate > 60; Glucose 376 mg/dL (65-110); Magnesium 2.3 mg/dL (1.6-2.3); Potassium 3.9 mmol/L (3.4-5.0); Sodium 130 mmol/L (137-145)
[2021-04-17 08:24] LABS: Free T4 Free Thyroxine Reflex 1.01 ng/dL (0.78-2.19)
[2021-04-17] MEDS: DULoxetine HCL 60 MG CAPSULE.DR PO (09:34)
[2021-04-17] MEDS: ENOXAPARIN 40 MG/0.4 ML SYRINGE SUB-Q (09:35)
[2021-04-17] MEDS: ASPIRIN 81 MG CHEWABLE TABLET PO (09:35)
[2021-04-17] MEDS: PANTOPRAZOLE 40 MG TABLET PO (09:35)
[2021-04-17 09:59] LABS: Total Triiodothyronine (T3) 0.45 NG/ML (0.97-1.69)
--- NOTE | 2021-04-17 10:44 | PM.IMPN ---
Progress Note: A&P Assessment and Plan (1) Sepsis: Qualifiers: Sepsis acute organ dysfunction status: unspecified Sepsis type: sepsis due to unspecified organism Qualified Code(s): A41.9 - Sepsis, unspecified organism Code(s): A41.9 - Sepsis, unspecified organism Status: Acute Assessment and Plan: Patient meets criteria for sepsis with fever, tachycardia, leukocytosis, and soft blood pressures in the setting of pneumonia. Lactic acid levels within normal limits. Blood and sputum cultures pending. (2) Pneumonia: Qualifiers: Laterality: unspecified laterality Lung location: unspecified part of lung Pneumonia type: due to unspecified organism Qualified Code(s): J18.9 - Pneumonia, unspecified organism Code(s): J18.9 - Pneumonia, unspecified organism Status: Acute Assessment and Plan: Patient recently finished a course of levofloxacin as an outpatient. Continue Zosyn which was started in the emergency department and add vancomycin for possible post viral pneumonia. Discussed with Dr. Mendez pulmonary was consulted. He agrees with a continuing vancomycin and Zosyn. Sputum culture has been sent and will follow culture (3) Cavitating mass in left lower lung lobe: Code(s): J98.4 - Other disorders of lung Status: Acute Assessment and Plan: Concerning for bronchogenic carcinoma according to CT reading though given sepsis picture she is being treated with broad-spectrum antibiotics as well as detailed above. Radiologist indicates that this is amenable to CT-guided biopsy which can be performed when she is feeling better. Discussed with the intervention Radiology and is amenable for CT-guided biopsy. Will plan for CT-guided biopsy on Monday. Discussed with Dr. Mendez about this findings as well. (4) Tobacco abuse: Code(s): Z72.0 - Tobacco use Status: Acute Assessment and Plan: Smoking cessation is imperative and was discussed. She denies the need for nicotine patch. (5) Hyponatremia: Code(s): E87.1 - Hypo-osmolality and hyponatremia Status: Acute Assessment and Plan: Likely multifactorial in etiology and secondary to underlying lung disease in addition to dehydration from poor oral intake from decreased appetite over the last week and half. She has been adequately hydrated in the emergency department. Line sodium level stable (6) Hypertension: Code(s): I10 - Essential (primary) hypertension Status: Acute Assessment and Plan: Blood pressures have been running soft as detailed above. Hold antihypertensives for now. Subjective Date/time seen: 04/17/21 10:44 Interval history: HPI:This is a 65-year-old female smoker with hypertension and hyperlipidemia who presented to the emergency department from Dr. zelaya office for evaluation of cough and abnormal chest imaging. She tested positive for COVID-19 on 02/28/2021 and she seemed to be feeling better right around the new year, able to do her typical activities of daily living. Over the past 7 to 10 days however her cough has become worse and it is now productive of hidalgo and occasionally pink-tinged brown to green sputum. She has also developed left-sided pleuritic chest pain, mild shortness of breath, sweats, fatigue, decreased appetite, and poor oral intake. Due to ongoing symptoms she was seen by Lauren Cardona PA-C on 04/05/2021 at which time she was prescribed a prednisone taper and levofloxacin. She completed the antibiotic and had a chest x-ray done the following week which showed a thick-walled cavitary mass in the superior segment of the left lower lobe consistent with abscess verses primary bronchogenic carcinoma. A subsequent chest CT taken yesterday showed an 8.4 x 6.9 cm thick walled cavitary mass with air/fluid level in the left lower lobe suspicious for primary bronchogenic carcinoma with bulky left hilar and aortic or pulmonary window
[2021-04-17 11:43] LABS: Alveolar/Arterial O2 Gradient 89.9 mmHg; Base Excess ABG -2.7 mEq/l (+/-2.0); Fractional Inspired Oxygen 28 %; HCO3 ABG 21.2 mEq/l (22.0-26.0); Oxygen Content ABG 14.5 %vol (16.0-22.0); Oxygen Saturation ABG 94.6 % (95.0-100.0); Oxyhemoglobin 92.7 % THb (90.0-100.0); PCO2 ABG 33.5 mmHg (35.0-45.0); PO2 ABG 70.2 mmHg (80.0-100.0); PO2 FiO2 Ratio Arterial Blood 2.51 %; Total Hemoglobin 11.1 g/dL (12.0-18.0); pH ABG 7.419 (7.350-7.450)
[2021-04-17 11:44] LABS: Device NASAL CANNULA; Site Drawn LEFT BRACHIAL
[2021-04-18] VITALS (24 sets, daily range): BP systolic 93–128; BP diastolic 44–71; PULSE 57–120; RESP 16–20; TEMP 36.4–37.1; O2SAT 88–96
[2021-04-18] MEDS: IPRATROPIUM BR 0.02% INH SOLN 0.5 MG/2.5 ML VIAL INHALATION ×4 (02:42→22:02)
[2021-04-18] MEDS: ALBUTEROL SULFATE NEB 2.5 MG/0.5 ML INH 5 MG INHALATION ×4 (02:43→22:02)
[2021-04-18 04:58] LABS: Basophils Absolute Auto 0.1 K/mm3 (0.0-0.1); Basophils Percent Auto 0.3 % (0.2-1.2); Eosinophils Absolute Auto 0.1 K/mm3 (0-0.3); Eosinophils Percent Auto 0.3 % (0-4.4); Hematocrit 30.5 % (37.0-47.0); Hemoglobin 10.2 g/dL (12.0-15.0); Immature Granulocyte Absolute 0.29 K/mm3 (0.00-0.031); Immature Granulocyte Percent A 1.2 % (0-0.5); Lymphocytes Absolute Auto 2.53 K/mm3 (0.9-3.2); Lymphocytes Percent Auto 10.6 % (18.3-44.2); Mean Corpuscular HGB Conc 33.4 g/dl (32-36); Mean Corpuscular Hemoglobin 29.1 pg (26-34); Mean Corpuscular Volume 86.9 fl (80-100); Mean Platelet Volume 9.3 fl (7.4-10.4); Monocytes Absolute Auto 1.7 K/mm3 (0.1-0.6); Monocytes Percent Auto 7.1 % (2.6-8.5); Neutrophils Absolute Auto 19.2 K/mm3 (1.3-6.7); Neutrophils Percent Auto 80.5 % (45.5-73.1); Platelet Count Result 663 k/mm3 (150-375); Red Blood Count 3.51 M/mm3 (4.2-5.4); Red Cell Distribution Width 13.4 % (11.5-14.5); White Blood Count 23.8 K/mm3 (4.5-10.0)
[2021-04-18 05:16] LABS: Alanine Aminotransferase 15 U/L (4-35); Albumin Level 2.6 g/dL (3.5-5.1); Alkaline Phosphatase 113 U/L (38-126); Anion Gap 4 mmol/L (8-16); Aspartate Amino Transferase 20 U/L (14-36); Bilirubin,Total < 0.1 mg/dL (0.2-1.3); Blood Urea Nitrogen 11 mg/dL (7-17); Calcium 8.3 mg/dL (8.4-10.2); Carbon Dioxide 28 mmol/L (22-30); Chloride 103 mmol/L (98-107); Estimated CRCL calculation 64 ml/min; Estimated Glomerular Filt Rate > 60; Glucose 124 mg/dL (65-110); Potassium 3.4 mmol/L (3.4-5.0); Sodium 135 mmol/L (137-145)
[2021-04-18] MEDS: ASPIRIN 81 MG CHEWABLE TABLET PO (08:59)
[2021-04-18] MEDS: DULoxetine HCL 60 MG CAPSULE.DR PO (08:59)
[2021-04-18] MEDS: PANTOPRAZOLE 40 MG TABLET PO (08:59)
[2021-04-18] MEDS: ERGOCALCIFEROL 50,000 UNIT CAPSULE 50000 UNITS PO (08:59)
[2021-04-18] MEDS: ENOXAPARIN 40 MG/0.4 ML SYRINGE SUB-Q (08:59)
--- NOTE | 2021-04-18 10:39 | PM.IMPN ---
Progress Note: A&P Assessment and Plan (1) Sepsis: Qualifiers: Sepsis acute organ dysfunction status: unspecified Sepsis type: sepsis due to unspecified organism Qualified Code(s): A41.9 - Sepsis, unspecified organism Code(s): A41.9 - Sepsis, unspecified organism Status: Acute Assessment and Plan: Patient meets criteria for sepsis with fever, tachycardia, leukocytosis, and soft blood pressures in the setting of pneumonia. Lactic acid levels within normal limits. Blood culture no growth so far. And sputum cultures pending. (2) Pneumonia: Qualifiers: Laterality: unspecified laterality Lung location: unspecified part of lung Pneumonia type: due to unspecified organism Qualified Code(s): J18.9 - Pneumonia, unspecified organism Code(s): J18.9 - Pneumonia, unspecified organism Status: Acute Assessment and Plan: Patient recently finished a course of levofloxacin as an outpatient. Continue Zosyn which was started in the emergency department and add vancomycin for possible post viral pneumonia. Discussed with Dr. Mendez pulmonary was consulted. He agrees with a continuing vancomycin and Zosyn. Sputum culture has been sent and will follow culture (3) Cavitating mass in left lower lung lobe: Code(s): J98.4 - Other disorders of lung Status: Acute Assessment and Plan: Concerning for bronchogenic carcinoma according to CT reading though given sepsis picture she is being treated with broad-spectrum antibiotics as well as detailed above. Radiologist indicates that this is amenable to CT-guided biopsy which can be performed when she is feeling better. Discussed with the intervention Radiology and is amenable for CT-guided biopsy. Will plan for CT-guided biopsy on Monday. Discussed with Dr. Mendez about this findings as well. Plan for NPO after midnight and CT-guided biopsy tomorrow (4) Tobacco abuse: Code(s): Z72.0 - Tobacco use Status: Acute Assessment and Plan: Smoking cessation is imperative and was discussed. She denies the need for nicotine patch. (5) Hyponatremia: Code(s): E87.1 - Hypo-osmolality and hyponatremia Status: Acute Assessment and Plan: Likely multifactorial in etiology and secondary to underlying lung disease in addition to dehydration from poor oral intake from decreased appetite over the last week and half. She has been adequately hydrated in the emergency department. Line sodium level stable and improved (6) Hypertension: Code(s): I10 - Essential (primary) hypertension Status: Acute Assessment and Plan: Blood pressures have been running soft as detailed above. Hold antihypertensives for now. Subjective Date/time seen: 04/18/21 10:39 Interval history: HPI:This is a 65-year-old female smoker with hypertension and hyperlipidemia who presented to the emergency department from Dr. zelaya office for evaluation of cough and abnormal chest imaging. She tested positive for COVID-19 on 02/28/2021 and she seemed to be feeling better right around the new year, able to do her typical activities of daily living. Over the past 7 to 10 days however her cough has become worse and it is now productive of hidalgo and occasionally pink-tinged brown to green sputum. She has also developed left-sided pleuritic chest pain, mild shortness of breath, sweats, fatigue, decreased appetite, and poor oral intake. Due to ongoing symptoms she was seen by Lauren Cardona PA-C on 04/05/2021 at which time she was prescribed a prednisone taper and levofloxacin. She completed the antibiotic and had a chest x-ray done the following week which showed a thick-walled cavitary mass in the superior segment of the left lower lobe consistent with abscess verses primary bronchogenic carcinoma. A subsequent chest CT taken yesterday showed an 8.4 x 6.9 cm thick walled cavitary mass with air/fluid level in the left lower lobe wood
[2021-04-18] MEDS: SIMVASTATIN 20 MG TABLET PO (21:20)
[2021-04-19] VITALS (20 sets, daily range): BP systolic 82–124; BP diastolic 44–78; PULSE 100–126; RESP 18–20; TEMP 36.1–36.8; O2SAT 90–96; BMI 22.3
[2021-04-19] MEDS: IPRATROPIUM BR 0.02% INH SOLN 0.5 MG/2.5 ML VIAL INHALATION ×4 (03:03→20:45)
[2021-04-19] MEDS: ALBUTEROL SULFATE NEB 2.5 MG/0.5 ML INH 5 MG INHALATION (03:03)
--- NOTE | 2021-04-19 04:20 | PC.NURSE ---
This patient, Zena Stone, was transferred to [[facility]2] on 04/19/21 at 0415. Personal belongings sent with patient. Report given to [Galilea ]. Appropriate documentation sent with patient.
--- NOTE | 2021-04-19 04:43 | PC.NURSE ---
Patient was transferred from IMU to room 325-2 at 0415. All belonging were transferred with the patient and the patient was oriented to the the room
[2021-04-19 07:22] LABS: Basophils Absolute Auto 0.1 K/mm3 (0.0-0.1); Basophils Percent Auto 0.3 % (0.2-1.2); Eosinophils Percent Auto 0.1 % (0-4.4); Hematocrit 33.5 % (37.0-47.0); Hemoglobin 10.9 g/dL (12.0-15.0); Immature Granulocyte Percent A 1.2 % (0-0.5); Lymphocytes Absolute Auto 1.98 K/mm3 (0.9-3.2); Lymphocytes Percent Auto 8.2 % (18.3-44.2); Mean Corpuscular HGB Conc 32.5 g/dl (32-36); Mean Corpuscular Hemoglobin 28.4 pg (26-34); Mean Corpuscular Volume 87.2 fl (80-100); Monocytes Absolute Auto 2.3 K/mm3 (0.1-0.6); Monocytes Percent Auto 9.4 % (2.6-8.5); Neutrophils Absolute Auto 19.4 K/mm3 (1.3-6.7); Neutrophils Percent Auto 80.8 % (45.5-73.1); Platelet Count Result 656 k/mm3 (150-375); Red Blood Count 3.84 M/mm3 (4.2-5.4); Red Cell Distribution Width 13.5 % (11.5-14.5); White Blood Count 24.1 K/mm3 (4.5-10.0)
[2021-04-19 07:38] LABS: Alanine Aminotransferase 14 U/L (4-35); Albumin Level 2.7 g/dL (3.5-5.1); Alkaline Phosphatase 116 U/L (38-126); Anion Gap 4 mmol/L (8-16); Aspartate Amino Transferase 21 U/L (14-36); Bilirubin,Total 0.3 mg/dL (0.2-1.3); Blood Urea Nitrogen 8 mg/dL (7-17); Calcium 8.2 mg/dL (8.4-10.2); Carbon Dioxide 30 mmol/L (22-30); Chloride 97 mmol/L (98-107); Estimated CRCL calculation 75 ml/min; Estimated Glomerular Filt Rate > 60; Glucose 126 mg/dL (65-110); Potassium 3.6 mmol/L (3.4-5.0); Sodium 131 mmol/L (137-145)
[2021-04-19] MEDS: ALBUTEROL SULFATE NEB 2.5 MG/0.5 ML INH INHALATION ×3 (08:34→20:45)
[2021-04-19] MEDS: DULoxetine HCL 60 MG CAPSULE.DR PO (09:10)
[2021-04-19] MEDS: PANTOPRAZOLE 40 MG TABLET PO (09:10)
[2021-04-19] MEDS: ASPIRIN 81 MG CHEWABLE TABLET PO (09:10)
--- NOTE | 2021-04-19 09:50 | PM.CNPUL ---
Assessment and Plan Assessment and plan (1) Cavitating mass in left lower lung lobe: Code(s): J98.4 - Other disorders of lung Status: Acute Assessment and Plan: 04/19 Patient with tobacco history at 20 pack years and quit in 01/31, COVID on 02/28/2021 with persistent symptoms despite prednisone and Levaquin and then followed by the development of putrid phlegm production, fever, leukocytosis and a CTA scan demonstrating a left upper lobe cavitary mass with an air-fluid level and no PE. She has been treated with vancomycin and Zosyn and clinically states that she feels is 50% better and no longer has putrid phlegm. The differential includes lung abscess and/or lung cancer. At this point I will continue treatment with vancomycin and Zosyn for a bacterial lung abscess and follow cultures and radiographic appearance of the abscess. Clinically she has improved and responded to the antibiotics. I will cancel the CT-guided lung biopsy that was scheduled for today. I will repeat CT imaging in about a week to re-asses. Will follow with you. History of Present Illness History of Present Illness Consult date: 04/19/21 Reason for consult: other (left lung cavity) Chief complaint: Sepsis/pneumonia Narrative: 04/19/2021: Is a new pulmonary consult for left lung abscess. 65-year-old woman with a history of hypertension, TIA, hyperlipidemia, GERD, COVID-19 02/28/2021, depression and arthritis on no. Medicines presented to the hospital on 04/16/21 for left lung cavity with an air-fluid level. Patient tells me she was healthy with no respiratory limitations in her life and developed a very mild cough in December of 2020. Patient had 2 weeks of shortness of breath, cough, loss of taste and loss of smell and then tested positive for COVID-[address] on 02/28/2021. Patient did not require hospitalization. Patient's cough fatigue persisted and on 04/05/2020 patient was given a prednisone burst and Levaquin by her primary physician. Patient continued to have fatigue and worsening cough. She developed very thick hidalgo sputum with a horrible taste and a rotten smell and had a chest x-ray on 04/12/2020 that demonstrated a thick-walled cavitary mass with an air-fluid level. She had a CT scan of the chest on 04/15/2021 that demonstrated a an 8.4 x 6.7 cm thick-walled cavitary mass with an air-fluid level in the left lower lobe, additional airspace and ground-glass opacities in the left lower lobe a partly solid nodule in the right lower lobe. There is mild centrilobular emphysema and a small pericardial effusion ( most recent imaging per the patient was a CT of the abdomen on 05/14/2019 that showed no left lower lobe pathology.. Patient was sent to the emergency department on 04/16 In the emergency department the patient had a white blood cell count of 27.0, she was febrile, CRP was 33 her creatinine was 0.7. Her procalcitonin was 0.3. She was COVID negative and empirically started on vancomycin and Zosyn. Patient's tells me she has no recent episodes of aspiration or choking on her food. Patient denies heavy alcohol use and has no had no blackout episodes recently. Patient denies any seizures. Patient denies any significant weight loss recently. Patient has full upper dentures and partial lower dentures and denies any recent tooth aches or oral infections. Patient smoked tobacco from age 15 to January of 2021 with an average of 1/2 pack per day for 20 pack year history. Patient was exposed to secondhand smoke from both of her parents but none currently. Patient denies vaping, illicit drug use, sandblasting, welding, asbestos were, professional painting, steel dimension mill worker. 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 04/19 Today the patient tells me that she is better. Her cough and left-sided pleuritic chest pain are better. Her phlegm production is decreased and she no longer has a bad taste or smell to her phlegm. O
--- NOTE | 2021-04-19 13:21 | PM.IMPN ---
Progress Note: A&P Assessment and Plan (1) Sepsis: Qualifiers: Sepsis acute organ dysfunction status: unspecified Sepsis type: sepsis due to unspecified organism Qualified Code(s): A41.9 - Sepsis, unspecified organism Code(s): A41.9 - Sepsis, unspecified organism Status: Acute Assessment and Plan: Patient meets criteria for sepsis with fever, tachycardia, leukocytosis, and soft blood pressures in the setting of pneumonia. Lactic acid levels within normal limits. Blood culture no growth so far. And sputum cultures pending. Leukocytosis still persists (2) Pneumonia: Qualifiers: Laterality: unspecified laterality Lung location: unspecified part of lung Pneumonia type: due to unspecified organism Qualified Code(s): J18.9 - Pneumonia, unspecified organism Code(s): J18.9 - Pneumonia, unspecified organism Status: Acute Assessment and Plan: Patient recently finished a course of levofloxacin as an outpatient. Continue Zosyn which was started in the emergency department and add vancomycin for possible post viral pneumonia. Discussed with Dr. Mendez pulmonary was consulted. He agrees with a continuing vancomycin and Zosyn. Sputum culture has been sent and will follow culture (3) Cavitating mass in left lower lung lobe: Code(s): J98.4 - Other disorders of lung Status: Acute Assessment and Plan: Concerning for bronchogenic carcinoma according to CT reading though given sepsis picture she is being treated with broad-spectrum antibiotics as well as detailed above. Radiologist indicates that this is amenable to CT-guided biopsy which can be performed when she is feeling better. Discussed with the intervention Radiology and is amenable for CT-guided biopsy. Will plan for CT-guided biopsy on Monday. Discussed with Dr. Mendez about this findings as well. Plan for CT-guided biopsy however has been canceled by the conditioner tumbler operator and to continue with IV antibiotics and follow-up CT scan. (4) Tobacco abuse: Code(s): Z72.0 - Tobacco use Status: Acute Assessment and Plan: Smoking cessation is imperative and was discussed. She denies the need for nicotine patch. (5) Hyponatremia: Code(s): E87.1 - Hypo-osmolality and hyponatremia Status: Acute Assessment and Plan: Likely multifactorial in etiology and secondary to underlying lung disease in addition to dehydration from poor oral intake from decreased appetite over the last week and half. She has been adequately hydrated in the emergency department. Line sodium level stable and improved (6) Hypertension: Code(s): I10 - Essential (primary) hypertension Status: Acute Assessment and Plan: Blood pressures have been running soft as detailed above. Hold antihypertensives for now. Subjective Date/time seen: 04/19/21 13:21 Interval history: HPI:This is a 65-year-old female smoker with hypertension and hyperlipidemia who presented to the emergency department from Dr. zelaya office for evaluation of cough and abnormal chest imaging. She tested positive for COVID-19 on 02/28/2021 and she seemed to be feeling better right around the new year, able to do her typical activities of daily living. Over the past 7 to 10 days however her cough has become worse and it is now productive of hidalgo and occasionally pink-tinged brown to green sputum. She has also developed left-sided pleuritic chest pain, mild shortness of breath, sweats, fatigue, decreased appetite, and poor oral intake. Due to ongoing symptoms she was seen by Lauren Cardona PA-C on 04/05/2021 at which time she was prescribed a prednisone taper and levofloxacin. She completed the antibiotic and had a chest x-ray done the following week which showed a thick-walled cavitary mass in the superior segment of the left lower lobe consistent with abscess verses primary bronchogenic carcinoma. A subsequent chest CT taken yes
[2021-04-19 21:15] LABS: Legionella pneumophila Ag Ur Not Detected (Not Detected)
[2021-04-19] MEDS: SIMVASTATIN 20 MG TABLET PO (21:40)
[2021-04-19 21:53] LABS: Vancomycin Trough < 5.0 ug/mL (10.0-20.0)
[2021-04-19 23:24] LABS: Pneumococcal Antigen Urine Not Detected (Not Detected)
[2021-04-20] VITALS (22 sets, daily range): BP systolic 80–118; BP diastolic 46–77; PULSE 87–137; RESP 16–20; TEMP 36.7–37.3; O2SAT 90–94
[2021-04-20] MEDS: IPRATROPIUM BR 0.02% INH SOLN 0.5 MG/2.5 ML VIAL INHALATION ×4 (02:57→21:17)
[2021-04-20] MEDS: ALBUTEROL SULFATE NEB 2.5 MG/0.5 ML INH INHALATION ×4 (02:57→21:17)
[2021-04-20 08:23] LABS: Basophils Absolute Auto 0.1 K/mm3 (0.0-0.1); Basophils Percent Auto 0.3 % (0.2-1.2); Eosinophils Absolute Auto 0.1 K/mm3 (0-0.3); Eosinophils Percent Auto 0.5 % (0-4.4); Hematocrit 33.3 % (37.0-47.0); Hemoglobin 10.9 g/dL (12.0-15.0); Immature Granulocyte Absolute 0.35 K/mm3 (0.00-0.031); Immature Granulocyte Percent A 1.4 % (0-0.5); Lymphocytes Absolute Auto 1.84 K/mm3 (0.9-3.2); Lymphocytes Percent Auto 7.1 % (18.3-44.2); Mean Corpuscular HGB Conc 32.7 g/dl (32-36); Mean Corpuscular Hemoglobin 28.7 pg (26-34); Mean Corpuscular Volume 87.6 fl (80-100); Mean Platelet Volume 9.3 fl (7.4-10.4); Monocytes Absolute Auto 2.1 K/mm3 (0.1-0.6); Monocytes Percent Auto 8.1 % (2.6-8.5); Neutrophils Absolute Auto 21.3 K/mm3 (1.3-6.7); Neutrophils Percent Auto 82.6 % (45.5-73.1); Platelet Count Result 684 k/mm3 (150-375); Red Cell Distribution Width 13.6 % (11.5-14.5); White Blood Count 25.8 K/mm3 (4.5-10.0)
[2021-04-20 08:35] LABS: Alanine Aminotransferase 16 U/L (4-35); Albumin Level 2.8 g/dL (3.5-5.1); Alkaline Phosphatase 113 U/L (38-126); Anion Gap 4 mmol/L (8-16); Aspartate Amino Transferase 25 U/L (14-36); Bilirubin,Total 0.4 mg/dL (0.2-1.3); Blood Urea Nitrogen 7 mg/dL (7-17); Calcium 8.4 mg/dL (8.4-10.2); Carbon Dioxide 32 mmol/L (22-30); Chloride 97 mmol/L (98-107); Estimated CRCL calculation 92 ml/min; Estimated Glomerular Filt Rate > 60; Glucose 119 mg/dL (65-110); Potassium 3.8 mmol/L (3.4-5.0); Sodium 133 mmol/L (137-145)
[2021-04-20] MEDS: DULoxetine HCL 60 MG CAPSULE.DR PO (08:56)
[2021-04-20] MEDS: ENOXAPARIN 40 MG/0.4 ML SYRINGE SUB-Q (08:56)
[2021-04-20] MEDS: ASPIRIN 81 MG CHEWABLE TABLET PO (08:56)
[2021-04-20] MEDS: PANTOPRAZOLE 40 MG TABLET PO (08:56)
--- NOTE | 2021-04-20 10:15 | PM.PNPUL ---
Progress Note: A&P Assessment and Plan (1) Cavitating mass in left lower lung lobe: Code(s): J98.4 - Other disorders of lung Status: Acute Assessment and Plan: 04/19 Patient with tobacco history at 20 pack years and quit in 01/31, COVID on 02/28/2021 with persistent symptoms despite prednisone and Levaquin and then followed by the development of putrid phlegm production, fever, leukocytosis and a CTA scan demonstrating a left upper lobe cavitary mass with an air-fluid level and no PE. She has been treated with vancomycin and Zosyn and clinically states that she feels is 50% better and no longer has putrid phlegm. The differential includes lung abscess and/or lung cancer. At this point I will continue treatment with vancomycin and Zosyn for a bacterial lung abscess and follow cultures and radiographic appearance of the abscess. Clinically she has improved and responded to the antibiotics. I will cancel the CT-guided lung biopsy that was scheduled for today. I will repeat CT imaging in about a week to re-asses. 04/20 Patient continues to feel improved. States that she is breathing close to normal now her pleuritic pain is nearly resolved, her cough is improved and she has less phlegm. She is on room air with saturations 93%. White blood cell count today is 25.8. Patient cultures remain negative clinically she has improved on vanc and Zosyn although or white blood count today is 25.8. Will plan on inpatient bronchoscopy tentatively scheduled for 04/22/2021 in an attempt to isolate an organism and send addition specimens for fungal and AFB. Will follow with you. Subjective Date/time seen: 04/20/21 10:15 Interval history: 04/19/2021: Is a new pulmonary consult for left lung abscess. 65-year-old woman with a history of hypertension, TIA, hyperlipidemia, GERD, COVID-19 02/28/2021, depression and arthritis on no. Medicines presented to the hospital on 04/16/21 for left lung cavity with an air-fluid level. Patient tells me she was healthy with no respiratory limitations in her life and developed a very mild cough in December of 2020. Patient had 2 weeks of shortness of breath, cough, loss of taste and loss of smell and then tested positive for COVID-[address] [facility] on 02/28/2021. Patient did not require hospitalization. Patient's cough fatigue persisted and on 04/05/2020 patient was given a prednisone burst and Levaquin by her primary physician. Patient continued to have fatigue and worsening cough. She developed very thick hidalgo sputum with a horrible taste and a rotten smell and had a chest x-ray on 04/12/2020 that demonstrated a thick-walled cavitary mass with an air-fluid level. She had a CT scan of the chest on 04/15/2021 that demonstrated a an 8.4 x 6.7 cm thick-walled cavitary mass with an air-fluid level in the left lower lobe, additional airspace and ground-glass opacities in the left lower lobe a partly solid nodule in the right lower lobe. There is mild centrilobular emphysema and a small pericardial effusion ( most recent imaging per the patient was a CT of the abdomen on 05/14/2019 that showed no left lower lobe pathology.. Patient was sent to the emergency department on 04/16 In the emergency department the patient had a white blood cell count of 27.0, she was febrile, CRP was 33 her creatinine was 0.7. Her procalcitonin was 0.3. She was COVID negative and empirically started on vancomycin and Zosyn. Patient's tells me she has no recent episodes of aspiration or choking on her food. Patient denies heavy alcohol use and has no had no blackout episodes recently. Patient denies any seizures. Patient denies any significant weight loss recently. Patient has full upper dentures and partial lower dentures and denies any recent tooth aches or oral infections. Patient smoked tobacco from age 15 to January of 2021 with an average of 1/2 pack per day for 20 pack year history. Patient was expo
--- NOTE | 2021-04-20 16:45 | PM.IMPN ---
Progress Note: A&P Assessment and Plan (1) Cavitating mass in left lower lung lobe: Code(s): J98.4 - Other disorders of lung Status: Acute (2) Sepsis: Qualifiers: Sepsis acute organ dysfunction status: unspecified Sepsis type: sepsis due to unspecified organism Qualified Code(s): A41.9 - Sepsis, unspecified organism Code(s): A41.9 - Sepsis, unspecified organism Status: Acute (3) Pneumonia: Qualifiers: Laterality: unspecified laterality Lung location: unspecified part of lung Pneumonia type: due to unspecified organism Qualified Code(s): J18.9 - Pneumonia, unspecified organism Code(s): J18.9 - Pneumonia, unspecified organism Status: Acute (4) Tobacco abuse: Code(s): Z72.0 - Tobacco use Status: Acute (5) Gastroesophageal reflux disease: Code(s): K21.9 - Gastro-esophageal reflux disease without esophagitis Status: Acute (6) Hyperlipidemia: Code(s): E78.5 - Hyperlipidemia, unspecified Status: Acute (7) Hypertension: Code(s): I10 - Essential (primary) hypertension Status: Acute (8) Hyponatremia: Code(s): E87.1 - Hypo-osmolality and hyponatremia Status: Acute Additional Plan 04/20/21 WBCs stable 23-25k BG at goal BP labile on Xanax no BP meds RF WNL Vanco < 5 supplemental O2 via NC pulm following cont current care Time Spent With Patient Time with patient: Greater than 35 minutes Subjective Date/time seen: 04/20/21 16:45 pt states she is feeling a little better cough improving feels weak and tired still Exam Narrative: General: NAD nontoxic appearing HEENT: EOMI. Sclerae anicteric. moist mucus membranes. Neck: Supple. No adenopathy or JVD. Respiratory: Respirations are even and nonlabored. She is speaking in full sentences.coarse breath sounds, b/l lung crackles noted Cardiovascular: mildly tachycardiac, sinus on tele, S1-S2. Gastrointestinal: Abdomen is soft, nontender, and nondistended Skin: Warm and dry. No rash or lesions on limited exam. Extremities: No cyanosis, clubbing, or edema. Neurological: Alert. Cranial nerves 2-12 are grossly intact. No gross focal deficits to casual conversation. Psychiatric: Pleasant and cooperative with normal mood and affect. Judgment and insight intact. Objective Data Vital Signs Vital Signs: Vital Signs - 24 hr 04/19/21 20:00 04/19/21 20:50 04/19/21 20:52 Temperature Pulse Rate 100 111 H Respiratory Rate 20 Blood Pressure Pulse Oximetry 91 04/19/21 20:56 04/19/21 22:00 04/19/21 22:04 Temperature 97.2 F L Pulse Rate 115 H 100 Respiratory Rate 20 20 Blood Pressure 124/65 88/58 L Pulse Oximetry 92 04/19/21 22:07 04/20/21 00:00 04/20/21 02:59 Temperature Pulse Rate 137 H 102 H Respiratory Rate 18 Blood Pressure 82/44 L Pulse Oximetry 04/20/21 03:07 04/20/21 04:00 04/20/21 06:00 Temperature 98.1 F Pulse Rate 112 H 111 H 99 Respiratory Rate 20 16 Blood Pressure 118/58 L Pulse Oximetry 94 04/20/21 08:00 04/20/21 09:00 04/20/21 09:10 Temperature Pulse Rate 87 109 H 104 H Respiratory Rate 18 18 Blood Pressure Pulse Oximetry 93 93 93 04/20/21 10:05 04/20/21 10:15 04/20/21 10:35 Temperature Pulse Rate Respiratory Rate Blood Pressure 102/63 92/58 L 90/58 L Pulse Oximetry 04/20/21 12:00 04/20/21 15:36 04/20/21 15:45 Temperature Pulse Rate 111 H 111 H 100 Respiratory Rate 18 18 Blood Pressure Pulse Oximetry Intake/Output Intake/Output: Intake & Output 04/17/21 04/18/21 04/19/21 04/20/21 23:59 23:59 23:59 23:59 Intake Total 1625 2670 1590 1030 Output Total 1700 1600 Balance -75 1070 1590 1030 Meds/Results Medications: Active Medications Generic Name Dose Route Start Last Admin Trade Name Freq PRN Reason Stop Dose Admin Hydrocodone Bitart/Acetaminophen 1 tab 04/18/21 10:39 Hydrocodone/Aceta
[2021-04-20] MEDS: SIMVASTATIN 20 MG TABLET PO (21:01)
[2021-04-21] VITALS (17 sets, daily range): BP systolic 80–134; BP diastolic 41–116; PULSE 87–105; RESP 18–20; TEMP 36.6–36.7; O2SAT 90–97
[2021-04-21] MEDS: ALBUTEROL SULFATE NEB 2.5 MG/0.5 ML INH INHALATION ×3 (07:55→21:14)
[2021-04-21] MEDS: IPRATROPIUM BR 0.02% INH SOLN 0.5 MG/2.5 ML VIAL INHALATION ×3 (07:55→21:14)
--- NOTE | 2021-04-21 09:25 | PM.PNPUL ---
Progress Note: A&P Assessment and Plan (1) Cavitating mass in left lower lung lobe: Code(s): J98.4 - Other disorders of lung Status: Acute Assessment and Plan: 04/19 Patient with tobacco history at 20 pack years and quit in 01/31, COVID on 02/28/2021 with persistent symptoms despite prednisone and Levaquin and then followed by the development of putrid phlegm production, fever, leukocytosis and a CTA scan demonstrating a left upper lobe cavitary mass with an air-fluid level and no PE. She has been treated with vancomycin and Zosyn and clinically states that she feels is 50% better and no longer has putrid phlegm. The differential includes lung abscess and/or lung cancer. At this point I will continue treatment with vancomycin and Zosyn for a bacterial lung abscess and follow cultures and radiographic appearance of the abscess. Clinically she has improved and responded to the antibiotics. I will cancel the CT-guided lung biopsy that was scheduled for today. I will repeat CT imaging in about a week to re-asses. 04/20 Patient continues to feel improved. States that she is breathing close to normal now her pleuritic pain is nearly resolved, her cough is improved and she has less phlegm. She is on room air with saturations 93%. White blood cell count today is 25.8. Patient cultures remain negative clinically she has improved on vanc and Zosyn although or white blood count today is 25.8. Will plan on inpatient bronchoscopy tentatively scheduled for 04/22/2021 in an attempt to isolate an organism and send addition specimens for fungal and AFB. Legionella and loop pneumococcal urine antigen studies are negative. 04/21 Patient feels about the same as yesterday. She has improved since admission. She is coughing up more phlegm today. The phlegm is not putrid tasting or smelling as it was prior to admission. She is on room air with saturation 93%. Chest x-ray shows slight decrease in left lung cavity. Cultures remain negative. overall she is improved But she still has a leukocytosis and I have no organism by cultures. I will repeat a CT scan of the chest in the morning of 04/22 And after review will consider bronchoscopy and/or CT-guided biopsy. Will follow with you. Subjective Date/time seen: 04/21/21 09:25 Interval history: 04/19/2021: Is a new pulmonary consult for left lung abscess. 65-year-old woman with a history of hypertension, TIA, hyperlipidemia, GERD, COVID-19 02/28/2021, depression and arthritis on no. Medicines presented to the hospital on 04/16/21 for left lung cavity with an air-fluid level. Patient tells me she was healthy with no respiratory limitations in her life and developed a very mild cough in December of 2020. Patient had 2 weeks of shortness of breath, cough, loss of taste and loss of smell and then tested positive for COVID-[address] Clinic on 02/28/2021. Patient did not require hospitalization. Patient's cough fatigue persisted and on 04/05/2020 patient was given a prednisone burst and Levaquin by her primary physician. Patient continued to have fatigue and worsening cough. She developed very thick hidalgo sputum with a horrible taste and a rotten smell and had a chest x-ray on 04/12/2020 that demonstrated a thick-walled cavitary mass with an air-fluid level. She had a CT scan of the chest on 04/15/2021 that demonstrated a an 8.4 x 6.7 cm thick-walled cavitary mass with an air-fluid level in the left lower lobe, additional airspace and ground-glass opacities in the left lower lobe a partly solid nodule in the right lower lobe. There is mild centrilobular emphysema and a small pericardial effusion ( most recent imaging per the patient was a CT of the abdomen on 05/14/2019 that showed no left lower lobe pathology.. Patient was sent to the emergency department on 04/16 In the emergency department the patient had a white blood cell count of 27.0, she was febrile, CRP was 33 her
--- NOTE | 2021-04-21 09:34 | P.PNPL_ITS ---
Progress Note: A&P Assessment and Plan (1) Cavitating mass in left lower lung lobe: Code(s): J98.4 - Other disorders of lung Status: Acute Assessment and Plan: 04/19 Patient with tobacco history at 20 pack years and quit in 01/31, COVID on 02/28/2021 with persistent symptoms despite prednisone and Levaquin and then followed by the development of putrid phlegm production, fever, leukocytosis and a CTA scan demonstrating a left upper lobe cavitary mass with an air-fluid level and no PE. She has been treated with vancomycin and Zosyn and clinically states that she feels is 50% better and no longer has putrid phlegm. The differential includes lung abscess and/or lung cancer. At this point I will continue treatment with vancomycin and Zosyn for a bacterial lung abscess and follow cultures and radiographic appearance of the abscess. Clinically she has improved and responded to the antibiotics. I will cancel the CT-guided lung biopsy that was scheduled for today. I will repeat CT imaging in about a week to re-asses. 04/20 Patient continues to feel improved. States that she is breathing close to normal now her pleuritic pain is nearly resolved, her cough is improved and she has less phlegm. She is on room air with saturations 93%. White blood cell count today is 25.8. Patient cultures remain negative clinically she has improved on vanc and Zosyn although or white blood count today is 25.8. Will plan on inpatient bronchoscopy tentatively scheduled for 04/22/2021 in an attempt to isolate an organism and send addition specimens for fungal and AFB. Legionella and loop pneumococcal urine antigen studies are negative. 04/21 Patient feels about the same as yesterday. She has improved since admission. She is coughing up more phlegm today. The phlegm is not putrid tasting or smelling as it was prior to admission. She is on room air with saturation 93%. Chest x-ray shows slight decrease in left lung cavity. Cultures remain negative. overall she is improved But she still has a leukocytosis and I have no organism by cultures. I will repeat a CT scan of the chest in the morning of 04/22 And after review will consider bronchoscopy and/or CT-guided biopsy. Will follow with you. Subjective Date/time seen: 04/21/21 09:34 Interval history: 04/19/2021: Is a new pulmonary consult for left lung abscess. 65-year-old woman with a history of hypertension, TIA, hyperlipidemia, GERD, COVID-19 02/28/2021, depression and arthritis on no. Medicines presented to the hospital on 04/16/21 for left lung cavity with an air-fluid level. Patient tells me she was healthy with no respiratory limitations in her life and developed a very mild cough in December of 2020. Patient had 2 weeks of shortness of breath, cough, loss of taste and loss of smell and then tested positive for COVID-[address] Clinic on 02/28/2021. Patient did not require hospitalization. Patient's cough fatigue persisted and on 04/05/2020 patient was given a prednisone burst and Levaquin by her primary physician. Patient continued to have fatigue and worsening cough. She developed very thick hidalgo sputum with a horrible taste and a rotten smell and had a chest x-ray on 04/12/2020 that demonstrated a thick-walled cavitary mass with an air-fluid level. She had a CT scan of the chest on 04/15/2021 that demonstrated a an 8.4 x 6.7 cm thick- walled cavitary mass with an air-fluid level in the left lower lobe, additional airspace and ground-glass opacities in the left lower lobe a partly solid nodule in the right lower lobe. There is mild centrilobular emphysema and a small pericardial effusion ( most recent imaging per the patient was a CT of the abdomen on
[2021-04-21 09:44] LABS: Basophils Absolute Auto 0.1 K/mm3 (0.0-0.1); Basophils Percent Auto 0.3 % (0.2-1.2); Eosinophils Absolute Auto 0.1 K/mm3 (0-0.3); Eosinophils Percent Auto 0.5 % (0-4.4); Hematocrit 33.3 % (37.0-47.0); Hemoglobin 10.8 g/dL (12.0-15.0); Immature Granulocyte Absolute 0.37 K/mm3 (0.00-0.031); Immature Granulocyte Percent A 1.3 % (0-0.5); Lymphocytes Absolute Auto 1.83 K/mm3 (0.9-3.2); Lymphocytes Percent Auto 6.3 % (18.3-44.2); Mean Corpuscular HGB Conc 32.4 g/dl (32-36); Mean Corpuscular Volume 89.3 fl (80-100); Mean Platelet Volume 9.2 fl (7.4-10.4); Monocytes Absolute Auto 1.7 K/mm3 (0.1-0.6); Monocytes Percent Auto 5.9 % (2.6-8.5); Neutrophils Percent Auto 85.7 % (45.5-73.1); Platelet Count Result 654 k/mm3 (150-375); Red Blood Count 3.73 M/mm3 (4.2-5.4); Red Cell Distribution Width 13.6 % (11.5-14.5); White Blood Count 29.2 K/mm3 (4.5-10.0)
[2021-04-21] MEDS: DULoxetine HCL 60 MG CAPSULE.DR PO (09:48)
[2021-04-21] MEDS: ENOXAPARIN 40 MG/0.4 ML SYRINGE SUB-Q (09:48)
[2021-04-21] MEDS: ASPIRIN 81 MG CHEWABLE TABLET PO (09:48)
[2021-04-21] MEDS: PANTOPRAZOLE 40 MG TABLET PO (09:48)
[2021-04-21 10:01] LABS: Vancomycin Trough 21.1 ug/mL (10.0-20.0)
[2021-04-21 10:05] LABS: Alanine Aminotransferase 15 U/L (4-35); Albumin Level 2.8 g/dL (3.5-5.1); Alkaline Phosphatase 113 U/L (38-126); Anion Gap 6 mmol/L (8-16); Aspartate Amino Transferase 43 U/L (14-36); Bilirubin,Total 0.5 mg/dL (0.2-1.3); Blood Urea Nitrogen 24 mg/dL (7-17); Calcium 8.2 mg/dL (8.4-10.2); Carbon Dioxide 30 mmol/L (22-30); Chloride 94 mmol/L (98-107); Estimated CRCL calculation 17 ml/min; Estimated Glomerular Filt Rate 19; Glucose 158 mg/dL (65-110); Potassium 4.2 mmol/L (3.4-5.0); Sodium 130 mmol/L (137-145)
[2021-04-21 10:28] LABS: CRP 17.3 mg/dL (<1.0)
--- NOTE | 2021-04-21 14:09 | PM.IMPN ---
Progress Note: A&P Assessment and Plan (1) Cavitating mass in left lower lung lobe: Code(s): J98.4 - Other disorders of lung Status: Acute (2) Sepsis: Qualifiers: Sepsis acute organ dysfunction status: unspecified Sepsis type: sepsis due to unspecified organism Qualified Code(s): A41.9 - Sepsis, unspecified organism Code(s): A41.9 - Sepsis, unspecified organism Status: Acute (3) Pneumonia: Qualifiers: Laterality: unspecified laterality Lung location: unspecified part of lung Pneumonia type: due to unspecified organism Qualified Code(s): J18.9 - Pneumonia, unspecified organism Code(s): J18.9 - Pneumonia, unspecified organism Status: Acute (4) Tobacco abuse: Code(s): Z72.0 - Tobacco use Status: Acute (5) Gastroesophageal reflux disease: Code(s): K21.9 - Gastro-esophageal reflux disease without esophagitis Status: Acute (6) Hyperlipidemia: Code(s): E78.5 - Hyperlipidemia, unspecified Status: Acute (7) Hypertension: Code(s): I10 - Essential (primary) hypertension Status: Acute (8) Hyponatremia: Code(s): E87.1 - Hypo-osmolality and hyponatremia Status: Acute Additional Plan 04/20/21 WBCs stable 23-25k BG at goal BP labile on Xanax no BP meds RF WNL Vanco < 5 supplemental O2 via NC pulm following cont current care 04/21/2021 continues to improve Case reviewed with pulmonology recommendations appreciated Will go for CT imaging tomorrow Further recommendations regarding bronchoscopy or biopsy to follow No further adjustments in medical regimen today Continue current care Subjective Date/time seen: 04/21/21 14:09 doing much better, bringing up more phlegm today which seems to be less thick and easier to expectorate Exam Narrative: General: NAD nontoxic appearing HEENT: EOMI. Sclerae anicteric. moist mucus membranes. Neck: Supple. No adenopathy or JVD. Respiratory: Respirations are even and nonlabored. She is speaking in full sentences.coarse breath sounds, b/l lung crackles improved from previous examination Cardiovascular: mildly tachycardiac, sinus on tele, S1-S2. Gastrointestinal: Abdomen is soft, nontender, and nondistended Skin: Warm and dry. No rash or lesions on limited exam. Extremities: No cyanosis, clubbing, or edema. Neurological: Alert. Cranial nerves 2-12 are grossly intact. No gross focal deficits to casual conversation. Psychiatric: Pleasant and cooperative with normal mood and affect. Judgment and insight intact. Objective Data Vital Signs Vital Signs: Vital Signs - 24 hr 04/20/21 15:36 04/20/21 15:45 04/20/21 16:00 Temperature 98.2 F Pulse Rate 111 H 100 96 Respiratory Rate 18 18 16 Blood Pressure 102/77 Pulse Oximetry 93 04/20/21 20:00 04/20/21 21:22 04/20/21 21:23 Temperature Pulse Rate 124 H 115 H Respiratory Rate 18 Blood Pressure Pulse Oximetry 92 04/20/21 21:28 04/20/21 22:00 04/20/21 22:05 Temperature 99.1 F Pulse Rate 117 H 115 H Respiratory Rate 18 18 Blood Pressure 107/53 L 99/70 L Pulse Oximetry 90 04/20/21 22:08 04/21/21 00:00 04/21/21 04:00 Temperature Pulse Rate 103 H 94 Respiratory Rate Blood Pressure 80/46 L Pulse Oximetry 04/21/21 07:55 04/21/21 08:00 04/21/21 08:02 Temperature 98.1 F Pulse Rate 99 100 103 H Respiratory Rate 18 18 18 Blood Pressure 108/52 L Pulse Oximetry 90 93 04/21/21 09:45 04/21/21 13:32 Temperature Pulse Rate 98 Respiratory Rate 20 Blood Pressure Pulse Oximetry 94 Intake/Output Intake/Output: Intake & Output 04/18/21 04/19/21 04/20/21 04/21/21 23:59 23:59 23:59 23:59 Intake Total 2670 1590 2300 590 Output Total 1600 375 Balance 1070 1590 1925 590 Meds/Results Medications: Active Medications Generic Name Dose Route Start Last Admin Trade Name Freq PRN Reason Stop Dose Admin Hydroco
[2021-04-21 16:28] LABS: Anion Gap 10 mmol/L (8-16); Blood Urea Nitrogen 30 mg/dL (7-17); Calcium 8.2 mg/dL (8.4-10.2); Carbon Dioxide 24 mmol/L (22-30); Chloride 94 mmol/L (98-107); Estimated CRCL calculation 17 ml/min; Estimated Glomerular Filt Rate 19; Glucose 92 mg/dL (65-110); Sodium 128 mmol/L (137-145)
[2021-04-21] MEDS: SODIUM CHLORIDE 0.9% IV 1,000 ML 75 ML IV CONT (17:20)
[2021-04-21 18:31] LABS: Eosinophil Urine None Seen % (None Seen)
[2021-04-21] MEDS: SIMVASTATIN 20 MG TABLET PO (20:41)
[2021-04-21] MEDS: CLINDAMYCIN 600 MG/D5W 50 ML 600 MG/50 ML PIGGYBACK 100 MG IVPB (21:08)
[2021-04-22] VITALS (30 sets, daily range): BP systolic 82–125; BP diastolic 35–85; PULSE 85–991; RESP 18–92; TEMP 36.2–36.8; O2SAT 92–100
[2021-04-22] MEDS: IPRATROPIUM BR 0.02% INH SOLN 0.5 MG/2.5 ML VIAL INHALATION ×4 (02:03→20:58)
[2021-04-22] MEDS: ALBUTEROL SULFATE NEB 2.5 MG/0.5 ML INH INHALATION ×4 (02:03→20:58)
[2021-04-22] MEDS: CLINDAMYCIN 600 MG/D5W 50 ML 600 MG/50 ML PIGGYBACK 100 MG IVPB ×3 (05:28→22:03)
[2021-04-22] MEDS: SODIUM CHLORIDE 0.9% IV 1,000 ML 75 ML IV CONT (06:06)
[2021-04-22 06:57] LABS: Basophils Absolute Auto 0.1 K/mm3 (0.0-0.1); Basophils Percent Auto 0.3 % (0.2-1.2); Eosinophils Absolute Auto 0.2 K/mm3 (0-0.3); Eosinophils Percent Auto 1.5 % (0-4.4); Hematocrit 30.3 % (37.0-47.0); Immature Granulocyte Absolute 0.22 K/mm3 (0.00-0.031); Immature Granulocyte Percent A 1.3 % (0-0.5); Lymphocytes Absolute Auto 1.69 K/mm3 (0.9-3.2); Lymphocytes Percent Auto 10.2 % (18.3-44.2); Mean Corpuscular Hemoglobin 28.8 pg (26-34); Mean Corpuscular Volume 87.3 fl (80-100); Mean Platelet Volume 9.3 fl (7.4-10.4); Monocytes Absolute Auto 1.6 K/mm3 (0.1-0.6); Monocytes Percent Auto 9.6 % (2.6-8.5); Neutrophils Absolute Auto 12.8 K/mm3 (1.3-6.7); Neutrophils Percent Auto 77.1 % (45.5-73.1); Platelet Count Result 624 k/mm3 (150-375); Red Blood Count 3.47 M/mm3 (4.2-5.4); Red Cell Distribution Width 13.6 % (11.5-14.5); White Blood Count 16.5 K/mm3 (4.5-10.0)
[2021-04-22 07:07] LABS: Alanine Aminotransferase 14 U/L (4-35); Albumin Level 2.6 g/dL (3.5-5.1); Alkaline Phosphatase 107 U/L (38-126); Anion Gap 4 mmol/L (8-16); Aspartate Amino Transferase 31 U/L (14-36); Bilirubin,Total 0.1 mg/dL (0.2-1.3); Blood Urea Nitrogen 29 mg/dL (7-17); Carbon Dioxide 30 mmol/L (22-30); Chloride 99 mmol/L (98-107); Estimated CRCL calculation 13 ml/min; Estimated Glomerular Filt Rate 15; Glucose 123 mg/dL (65-110); Potassium 4.2 mmol/L (3.4-5.0); Sodium 133 mmol/L (137-145)
[2021-04-22 08:48] LABS: Osmolality, Urine 467 mOsm/kg (50-1200)
--- NOTE | 2021-04-22 09:42 | PM.PNPUL ---
Progress Note: A&P Assessment and Plan (1) Cavitating mass in left lower lung lobe: Code(s): J98.4 - Other disorders of lung Status: Acute Assessment and Plan: 04/19 Patient with tobacco history at 20 pack years and quit in 01/31, COVID on 02/28/2021 with persistent symptoms despite prednisone and Levaquin and then followed by the development of putrid phlegm production, fever, leukocytosis and a CTA scan demonstrating a left upper lobe cavitary mass with an air-fluid level and no PE. She has been treated with vancomycin and Zosyn and clinically states that she feels is 50% better and no longer has putrid phlegm. The differential includes lung abscess and/or lung cancer. At this point I will continue treatment with vancomycin and Zosyn for a bacterial lung abscess and follow cultures and radiographic appearance of the abscess. Clinically she has improved and responded to the antibiotics. I will cancel the CT-guided lung biopsy that was scheduled for today. I will repeat CT imaging in about a week to re-asses. 04/20 Patient continues to feel improved. States that she is breathing close to normal now her pleuritic pain is nearly resolved, her cough is improved and she has less phlegm. She is on room air with saturations 93%. White blood cell count today is 25.8. Patient cultures remain negative clinically she has improved on vanc and Zosyn although or white blood count today is 25.8. Will plan on inpatient bronchoscopy tentatively scheduled for 04/22/2021 in an attempt to isolate an organism and send addition specimens for fungal and AFB. Legionella and loop pneumococcal urine antigen studies are negative. 04/21 Patient feels about the same as yesterday. She has improved since admission. She is coughing up more phlegm today. The phlegm is not putrid tasting or smelling as it was prior to admission. She is on room air with saturation 93%. Chest x-ray shows slight decrease in left lung cavity. Cultures remain negative. overall she is improved But she still has a leukocytosis and I have no organism by cultures. I will repeat a CT scan of the chest in the morning of 04/22 And after review will consider bronchoscopy and/or CT-guided biopsy. White blood cell count was 29.2. Creatinine returned to 2.5 and repeat was 2.5. Vancomycin and Zosyn were discontinued. Clindamycin 600 mg IV q.8 was initiated. Normal saline was started at 75 mL an hour. Urine eosinophils were sent. 04/22 patient states that she feels about the same. She has less phlegm today. She is walking better and her left-sided pleuritic pain is better. Her white blood cell count is 16.5. Her creatinine is 3.10. She had a repeat CT scan of the chest that demonstrated a slightly smaller left upper lobe cavity with a thicker wall. Air-fluid level persists. Will proceed with bronchoscopy later today in order to try to isolate an organism. I have explained the risks (infection, bleeding and pneumothorax) and benefits of the procedure and she is willing to proceed. I spoke with Radiology and given that the abscess is slightly smaller with antibiotics this makes it less likely there is a peripheral cancer and given the risk of perforating the asks abscess with a CT-guided needle biopsy is felt we should continue to treat with antibiotics and reassess the cavity in the future. Will follow with you. Subjective Date/time seen: 04/22/21 09:42 Interval history: 04/19/2021: Is a new pulmonary consult for left lung abscess. 65-year-old woman with a history of hypertension, TIA, hyperlipidemia, GERD, COVID-19 02/28/2021, depression and arthritis on no. Medicines presented to the hospital on 04/16/21 for left lung cavity with an air-fluid level. Patient tells me she was healthy with no respiratory limitations in her life and developed a very mild cough in December of 2020. Patient had 2 weeks of shortness of breath, cough, loss of taste and loss o
--- NOTE | 2021-04-22 09:50 | PM.IMPN ---
Progress Note: A&P Assessment and Plan (1) Cavitating mass in left lower lung lobe: Code(s): J98.4 - Other disorders of lung Status: Acute (2) Sepsis: Qualifiers: Sepsis acute organ dysfunction status: unspecified Sepsis type: sepsis due to unspecified organism Qualified Code(s): A41.9 - Sepsis, unspecified organism Code(s): A41.9 - Sepsis, unspecified organism Status: Acute (3) Pneumonia: Qualifiers: Laterality: unspecified laterality Lung location: unspecified part of lung Pneumonia type: due to unspecified organism Qualified Code(s): J18.9 - Pneumonia, unspecified organism Code(s): J18.9 - Pneumonia, unspecified organism Status: Acute (4) Tobacco abuse: Code(s): Z72.0 - Tobacco use Status: Acute (5) Gastroesophageal reflux disease: Code(s): K21.9 - Gastro-esophageal reflux disease without esophagitis Status: Acute (6) Hyperlipidemia: Code(s): E78.5 - Hyperlipidemia, unspecified Status: Acute (7) Hypertension: Code(s): I10 - Essential (primary) hypertension Status: Acute (8) Hyponatremia: Code(s): E87.1 - Hypo-osmolality and hyponatremia Status: Acute (9) TINA (acute kidney injury): Code(s): N17.9 - Acute kidney failure, unspecified Status: Acute Additional Plan 04/20/21 WBCs stable 23-25k BG at goal BP labile on Xanax no BP meds RF WNL Vanco < 5 supplemental O2 via NC pulm following cont current care 04/21/2021 continues to improve Case reviewed with pulmonology recommendations appreciated Will go for CT imaging tomorrow Further recommendations regarding bronchoscopy or biopsy to follow No further adjustments in medical regimen today Continue current care 04/22/21 consult nephro for worsening TINA bronch without findings of mass or lesion awaiting BAL results nephro recs appreciated Subjective Date/time seen: 04/22/21 09:50 pt doing ok, relieved to here bronch findings and improving size of cavitary lesion Exam Narrative: General: NAD nontoxic appearing HEENT: EOMI. Sclerae anicteric. moist mucus membranes. Neck: Supple. No adenopathy or JVD. Respiratory: Respirations are even and nonlabored. She is speaking in full sentences.cta Cardiovascular: S1-S2. RRR Skin: Warm and dry. No rash or lesions on limited exam. Extremities: No cyanosis, clubbing, or edema. Neurological: Alert. Cranial nerves 2-12 are grossly intact. No gross focal deficits to casual conversation. Psychiatric: Pleasant and cooperative with normal mood and affect. Judgment and insight intact. Objective Data Vital Signs Vital Signs: Vital Signs - 24 hr 04/21/21 12:00 04/21/21 13:32 04/21/21 14:10 Temperature Pulse Rate 94 98 105 H Respiratory Rate 20 Blood Pressure 80/41 L Pulse Oximetry 04/21/21 16:00 04/21/21 20:00 04/21/21 21:11 Temperature 98.0 F 98.0 F Pulse Rate 92 96 93 Respiratory Rate 18 18 Blood Pressure 108/54 L 108/54 L Pulse Oximetry 91 91 94 04/21/21 21:13 04/21/21 21:18 04/21/21 22:42 Temperature 97.9 F Pulse Rate 87 89 101 H Respiratory Rate 19 19 20 Blood Pressure 116/60 Pulse Oximetry 92 04/21/21 22:44 04/21/21 22:45 04/22/21 00:00 Temperature Pulse Rate 101 H 99 95 Respiratory Rate 20 20 Blood Pressure 90/59 L 134/116 H Pulse Oximetry 95 97 04/22/21 02:03 04/22/21 02:11 04/22/21 04:00 Temperature Pulse Rate 87 89 92 Respiratory Rate Blood Pressure Pulse Oximetry 04/22/21 06:00 04/22/21 08:15 04/22/21 08:51 Temperature 97.2 F L Pulse Rate 96 87 Respiratory Rate 18 18 Blood Pressure 106/59 L Pulse Oximetry 98 96 97 04/22/21 08:59 04/22/21 09:15 Temperature 97.5 F L Pulse Rate 85 94 Respiratory Rate 18 20 Blood Pressure 100/53 L Pulse Oximetry 97 Intake/Output Intake/Output: Intake & Output 04/19/21 04/20/21 04/21/21 04/22/21 23:59 23
[2021-04-22] MEDS: LACTATED RINGERS 1,000 ML 150 ML IV CONT (10:30)
--- NOTE | 2021-04-22 10:31 | WPDANESEPPF ---
Anes - Initial Pre Proc Eval Procedure: Operation Date: 04/22/21 10:45 Proposed Procedures p Flexible Bronchoscopy with Fluoro - Rell Mendez MD Date/Time: 04/22/21 10:31 Surgeon: Laurel Jessica MD Pre Op Diagnosis: Sepsis/pneumonia Patient Data Age: 65 Gender: F Height: 1.6 m Weight: 57 kg Last Vital Signs Temp 98.3 F 04/22/21 10:27 Pulse 96 04/22/21 10:27 Resp 20 04/22/21 10:27 BP 105/52 L 04/22/21 10:27 Pulse Ox 96 04/22/21 10:27 Allergies Allergy/AdvReac Type Severity Reaction Status Date / Time No Known Allergies Allergy Verified 04/22/21 10:27 Home Medications Medication Instructions Recorded Confirmed Type aspirin 81 mg PO DAILY 05/14/19 04/16/21 History simvastatin 20 mg tablet See Rx Instructions .ROUTE 07/03/20 04/16/21 Rx .COMPLEX #90 tablet alprazolam 0.5 mg tablet 0.5 mg PO BID PRN #20 tablet 11/19/20 04/16/21 Rx ergocalciferol (vitamin D2) 1,250 1,250 mcg PO WEEKLY #12 cap 02/08/21 04/16/21 Rx mcg (50,000 unit) capsule albuterol sulfate 90 mcg/actuation 1 inh INHALATION Q4H PRN #8.5 g 03/03/21 04/16/21 Rx aerosol inhaler amlodipine 5 mg tablet See Rx Instructions .ROUTE 04/02/21 04/16/21 Rx .COMPLEX #90 tablet duloxetine 30 mg capsule,delayed See Rx Instructions .ROUTE 04/02/21 04/16/21 Rx release .COMPLEX #180 cap esomeprazole magnesium 20 mg See Rx Instructions .ROUTE 04/02/21 04/16/21 Rx capsule,delayed release .COMPLEX #90 cap sulfamethoxazole-trimethoprim 1 tablet PO Q12-24H 04/16/21 04/16/21 History Laboratory Tests 04/16/21 04/21/21 04/21/21 22:56 15:43 17:38 WBC RBC Hgb Hct MCV MCH MCHC RDW Plt Count MPV Immature Gran % (Auto) Neut % (Auto) Lymph % (Auto) [place] % (Auto) Eos % (Auto) Baso % (Auto) Lymph # (Auto) [place] # (Auto) Eos # (Auto) Baso # (Auto) Abs Immat Gran (auto) Absolute Neuts (auto) Absolute Nucleated RBC Nucleated RBC % Sodium 128 mmol/L L mmol/L (137-145) Potassium 5.0 mmol/L mmol/L (3.4-5.0) Chloride 94 mmol/L L mmol/L (98-107) Carbon Dioxide 24 mmol/L mmol/L (22-30) Anion Gap 10 mmol/L mmol/L (8-16) BUN 30 mg/dL H mg/dL (7-17) Creatinine 2.50 mg/dL H mg/dL (0.7-1.0) Estim Creat Clear Calc 17 ml/min ml/min Estimated GFR 19 L (59 - ) Glucose 92 mg/dL mg/dL (65-110) Calcium 8.2 mg/dL L mg/dL (8.4-10.2) Total Bilirubin AST ALT Alkaline Phosphatase Total Protein Albumin Urine Eosinophils None seen % % (None Seen) Urine Osmolality 467 mOsm/kg mOsm/kg (50-1200) 04/22/21 04/22/21 06:32 06:32 WBC 16.5 K/mm3 H K/mm3 (4.5-10.0) RBC 3.47 M/mm3 L M/mm3 (4.2-5.4) Hgb 10.0 g/dL L g/dL (12.0-15.0) Hct 30.3 % L % (37.0-47.0) MCV 87.3 fl fl (80-100) MCH 28.8 pg pg (26-34) MCHC 33.0 g/dl g/dl (32-36) RDW 13.6 % % (11.5-14.5) Plt Count 624 k/mm3 H k/mm3 (150-375) MPV 9.3 fl fl (7.4-10.4) Immature Gran % (Auto) 1.3 % H % (0-0.5) Neut % (Auto) 77.1 % H % (45.5-73.1) Lymph % (Auto) 10.2 % L % (18.3-44.2) [place] % (Auto) 9.6 % H % (2.6-8.5) Eos % (Auto) 1.5 % % (0-4.4) Baso % (Auto) 0.3 % % (0.2-1.2) Lymph # (Auto) 1.69 K/mm3 K/mm3 (0.9-3.2) [place] # (Auto) 1.6 K/mm3 H K/mm3 (0.1-0.6) Eos # (Auto) 0.2 K/mm3 K/mm3 (0-0.3) Baso # (Auto) 0.1 K/mm3 K/mm3 (0.0-0.1) Abs Immat Gran (auto) 0.22 K/mm3 H K/mm3 (0.00-0.031) Absolute Mj
--- NOTE | 2021-04-22 11:52 | SUR.OPER ---
150ml NS used for BALs in the bronchoscopy.
[2021-04-22] MEDS: LIDOCAINE HCL 2% LOCAL INJ 20 ML VIAL INFILTRATE (11:54)
[2021-04-22] MEDS: PANTOPRAZOLE 40 MG TABLET PO (12:47)
[2021-04-22] MEDS: ASPIRIN 81 MG CHEWABLE TABLET PO (12:48)
[2021-04-22] MEDS: DULoxetine HCL 60 MG CAPSULE.DR PO (12:48)
[2021-04-22] MEDS: ENOXAPARIN 40 MG/0.4 ML SYRINGE SUB-Q (12:48)
--- NOTE | 2021-04-22 12:58 | PM.CNNEP ---
Assessment and Plan Assessment and plan (1) TINA (acute kidney injury): Code(s): N17.9 - Acute kidney failure, unspecified Status: Acute Assessment and Plan: etiology not entirely clear normal creatinine at baseline abruptly declined on 04/21/21 (creatinine went from 0.4mg/dl to 2.5mg/dl) possible etiologies include: relative hypotension (and associated renal hypoperfusion) prerenal factors infection (pneumonia + pulmonary abscess) reaction to antibiotics (Abx have since been changed) check renal ultrasound check urine electrolytes and urine eosinophils check CPK agree with IVFs for now follow I/Os and repeat labs (2) Hyponatremia: Code(s): E87.1 - Hypo-osmolality and hyponatremia Status: Acute Assessment and Plan: due to renal failure and current lung issues follow trend with current interventions (3) Cavitating mass in left lower lung lobe: Code(s): J98.4 - Other disorders of lung Status: Acute Assessment and Plan: as noted by imaging to date presumed to be a pulmonary abscess Pulmonary following s/p bronchoscopy earlier today - follow-up on cultures (4) Hypertension: Code(s): I10 - Essential (primary) hypertension Status: Acute Assessment and Plan: despite history, running relatively low follow trend of hemodynamics Will continue to follow. History of Present Illness Reason for Consult Consult date: 04/22/21 Reason for consult: acute renal failure Chief Complaint Chief complaint: Sepsis/pneumonia History of Present Illness Narrative: The patient is a 65-year-old female with a past medical history as outlined below who presented to [facility] Emergency room from her primary care physician's office for an abnormal chest imaging in association with the cough. The patient had tested positive for COVID-19 in mid February of 2021 but since that time had been doing reasonably well in terms of symptomatology. However, more recently, over the last week to 10 days, she has noticed that her cough has become significantly worse and has changed from a dry cough 2 and now productive cough of hidalgo/brown/greenish sputum. She has also developed left-sided pleuritic chest pain in association with mild shortness of breath night sweats, fatigue, decreased appetite, and poor oral intake. As the symptoms had continued to progress, she recently saw her the PA at her PCPs office and was prescribed a Marroquin prednisone taper in association with levofloxacin. She completed both of these medications and a repeat chest x-ray done this week showed a thick-walled cavitary mass in the superior segment of the left lower lobe consistent with abscess versus primary bronchogenic carcinoma. She subsequently had a CT scan of the chest which demonstrated a 8.4 x 6.9 cm cavitary mass with air-fluid levels in the left lower lobe suspicious for primary bronchogenic carcinoma. She was seen in the office on the day of admission for follow-up because of her ongoing symptoms as well as these imaging findings she was directed to the ER for further evaluation Workup and evaluation in the emergency room demonstrated the patient to be relative hypotensive with systolic BP is in the 80s to 90s, low-grade temperature 100.1?, and generalized sensation of not feeling well. No other specific subjective symptoms reported with regard to headache, sinus congestion, sore throat, chest pain, orthopnea, worsening lower extremity edema, vomiting or diarrhea. Routine blood tests on admission demonstrated CBC with an elevated white blood cell count and a chemistry with mild hyponatremia but with no other significant findings. Given her constellation of symptoms as well as her imaging findings, appropriate cultures were obtained and she was started on broad-spectrum IV antibiotic therapy with subsequent admission to the hospital. Since her admission, she has clinically im
--- NOTE | 2021-04-22 14:23 | PC.NURSE ---
On 04/22/21, the student, [ Evette Arreola], provided care and completed [facility] documentation on this patient. I have reviewed the student's documentation and agree with the findings.
--- NOTE | 2021-04-22 14:26 | PC.NURSE ---
On 04/22/21, the student, [Nalini Jain ], provided care and completed [facility] documentation on this patient. I have reviewed the student's documentation and agree with the findings.
[2021-04-22] MEDS: SIMVASTATIN 20 MG TABLET PO (22:03)
[2021-04-22 22:33] LABS: Glucose Point of Care 107 mg/dl (65-105)
[2021-04-23] VITALS (21 sets, daily range): BP systolic 98–137; BP diastolic 55–64; PULSE 82–101; RESP 18–19; TEMP 36.3–36.5; O2SAT 94–99
[2021-04-23] MEDS: ALBUTEROL SULFATE NEB 2.5 MG/0.5 ML INH INHALATION ×4 (02:28→20:34)
[2021-04-23] MEDS: IPRATROPIUM BR 0.02% INH SOLN 0.5 MG/2.5 ML VIAL INHALATION ×4 (02:28→20:34)
[2021-04-23] MEDS: CLINDAMYCIN 600 MG/D5W 50 ML 600 MG/50 ML PIGGYBACK 100 MG IVPB ×3 (06:23→20:19)
[2021-04-23 07:26] LABS: Basophils Percent Auto 0.4 % (0.2-1.2); Eosinophils Absolute Auto 0.2 K/mm3 (0-0.3); Eosinophils Percent Auto 2.2 % (0-4.4); Hematocrit 31.3 % (37.0-47.0); Hemoglobin 10.1 g/dL (12.0-15.0); Immature Granulocyte Absolute 0.08 K/mm3 (0.00-0.031); Immature Granulocyte Percent A 0.7 % (0-0.5); Lymphocytes Absolute Auto 1.51 K/mm3 (0.9-3.2); Lymphocytes Percent Auto 13.8 % (18.3-44.2); Mean Corpuscular HGB Conc 32.3 g/dl (32-36); Mean Corpuscular Hemoglobin 29.1 pg (26-34); Mean Corpuscular Volume 90.2 fl (80-100); Mean Platelet Volume 9.1 fl (7.4-10.4); Monocytes Absolute Auto 1.3 K/mm3 (0.1-0.6); Monocytes Percent Auto 11.6 % (2.6-8.5); Neutrophils Absolute Auto 7.8 K/mm3 (1.3-6.7); Neutrophils Percent Auto 71.3 % (45.5-73.1); Platelet Count Result 631 k/mm3 (150-375); Red Blood Count 3.47 M/mm3 (4.2-5.4); Red Cell Distribution Width 13.8 % (11.5-14.5); White Blood Count 10.9 K/mm3 (4.5-10.0)
[2021-04-23 07:40] LABS: Albumin Level 2.8 g/dL (3.5-5.1); Anion Gap 5 mmol/L (8-16); Blood Urea Nitrogen 30 mg/dL (7-17); CRP 8.4 mg/dL (<1.0); Carbon Dioxide 28 mmol/L (22-30); Chloride 104 mmol/L (98-107); Creatine Kinase < 20 U/L (30-135); Estimated CRCL calculation 13 ml/min; Estimated Glomerular Filt Rate 14; Glucose 115 mg/dL (65-110); Phosphorus 7.8 mg/dL (2.5-4.5); Potassium 4.2 mmol/L (3.4-5.0); Sodium 137 mmol/L (137-145)
[2021-04-23] MEDS: DULoxetine HCL 60 MG CAPSULE.DR PO (09:21)
[2021-04-23] MEDS: ASPIRIN 81 MG CHEWABLE TABLET PO (09:21)
[2021-04-23] MEDS: ENOXAPARIN 40 MG/0.4 ML SYRINGE SUB-Q (09:21)
[2021-04-23] MEDS: SODIUM CHLORIDE 0.9% IV 1,000 ML 75 ML IV CONT ×2 (09:21→20:18)
[2021-04-23] MEDS: PANTOPRAZOLE 40 MG TABLET PO (09:21)
--- NOTE | 2021-04-23 10:15 | PM.PNPUL ---
Progress Note: A&P Assessment and Plan (1) Cavitating mass in left lower lung lobe: Code(s): J98.4 - Other disorders of lung Status: Acute Assessment and Plan: 04/19 Patient with tobacco history at 20 pack years and quit in 01/31, COVID on 02/28/2021 with persistent symptoms despite prednisone and Levaquin and then followed by the development of putrid phlegm production, fever, leukocytosis and a CTA scan demonstrating a left upper lobe cavitary mass with an air-fluid level and no PE. She has been treated with vancomycin and Zosyn and clinically states that she feels is 50% better and no longer has putrid phlegm. The differential includes lung abscess and/or lung cancer. At this point I will continue treatment with vancomycin and Zosyn for a bacterial lung abscess and follow cultures and radiographic appearance of the abscess. Clinically she has improved and responded to the antibiotics. I will cancel the CT-guided lung biopsy that was scheduled for today. I will repeat CT imaging in about a week to re-asses. 04/20 Patient continues to feel improved. States that she is breathing close to normal now her pleuritic pain is nearly resolved, her cough is improved and she has less phlegm. She is on room air with saturations 93%. White blood cell count today is 25.8. Patient cultures remain negative clinically she has improved on vanc and Zosyn although or white blood count today is 25.8. Will plan on inpatient bronchoscopy tentatively scheduled for 04/22/2021 in an attempt to isolate an organism and send addition specimens for fungal and AFB. Legionella and loop pneumococcal urine antigen studies are negative. 04/21 Patient feels about the same as yesterday. She has improved since admission. She is coughing up more phlegm today. The phlegm is not putrid tasting or smelling as it was prior to admission. She is on room air with saturation 93%. Chest x-ray shows slight decrease in left lung cavity. Cultures remain negative. overall she is improved But she still has a leukocytosis and I have no organism by cultures. I will repeat a CT scan of the chest in the morning of 04/22 And after review will consider bronchoscopy and/or CT-guided biopsy. Creatinine returned to 2.5 and repeat was 2.5. Vancomycin and Zosyn were discontinued. Clindamycin 600 mg IV q.8 was initiated. Normal saline was started at 75 mL an hour. Urine eosinophils were sent. 04/22 patient states that she feels about the same. She has less phlegm today. She is walking better and her left-sided pleuritic pain is better. Her white blood cell count is 16.5. Her creatinine is 3.10. She had a repeat CT scan of the chest that demonstrated a slightly smaller left upper lobe cavity with a thicker wall. Air-fluid level persists. Will proceed with bronchoscopy later today in order to try to isolate an organism. I have explained the risks (infection, bleeding and pneumothorax) and benefits of the procedure and she is willing to proceed. Bronchoscopy demonstrated thick white secretions in the left lung, no endobronchial lesions in the superior segment of the left lower lobe, no foreign body and washings and BAL were sent for bacterial, AFB and fungal stains and cultures. Brushings and BAL sent for cytology. I spoke with Radiology and given that the abscess is slightly smaller with antibiotics this makes it less likely there is a peripheral cancer and given the risk of perforating the asks abscess with a CT-guided needle biopsy is felt we should continue to treat with antibiotics and reassess the cavity in the future. Renal consult appreciated. 04/23 patient is breathing well and remains on room air with saturations 96%. She states overall she is much better. She still has a mild cough with a little bit of yellow to green phlegm. White blood cell count today is 10.9. Creatinine is 3.30. From a pulmonary perspective she is doing well, Afebrile, i
--- NOTE | 2021-04-23 12:39 | P.PNNP_ITS ---
Progress Note: A&P Assessment and Plan (1) TINA (acute kidney injury): Code(s): N17.9 - Acute kidney failure, unspecified Status: Acute Assessment and Plan: * etiology not entirely clear * normal creatinine at baseline * abruptly declined on 04/21/21 (creatinine went from 0.4mg/dl to 2.5mg/dl) * possible etiologies include: * relative hypotension (and associated renal hypoperfusion) * prerenal factors * infection (pneumonia + pulmonary abscess) * reaction to antibiotics? (Abx have since been changed) * contrast exposure (but that was on 04/15/21) * evaluation to date: * renal suggestive of CKD but no onbstruction * urine electrolytes pre-renal * urine eosinophils negative * CPK low * creatinine still elevated but rate of rise has decreased * continue IVFs for now (and as long as respiratory status is stable) * follow I/Os and repeat labs (2) Hyponatremia: Code(s): E87.1 - Hypo-osmolality and hyponatremia Status: Acute Assessment and Plan: * resolved * due to renal failure and current lung issues * follow trend with current interventions (3) Cavitating mass in left lower lung lobe: Code(s): J98.4 - Other disorders of lung Status: Acute Assessment and Plan: * as noted by imaging to date * presumed to be a pulmonary abscess * Pulmonary following * s/p bronchoscopy (on 04/22/21) - follow-up on cultures/BAL results (4) Hypertension: Code(s): I10 - Essential (primary) hypertension Status: Acute Assessment and Plan: * despite history, running relatively low * follow trend of hemodynamics Will continue to follow. Subjective Date/time seen: 04/23/21 12:39 From a respiratory standpoint, she appears to be making significant improvement; renal function/creatinine still rising but still making urine and tolerating IVFs; still with a productive cough but this seems less; no other acute issues/events overnight or earlier this morning. Exam Narrative: General: WD/WN female in NAD Heart: normal S1 and S2; no rub Lungs: clear to auscultation Abdomen: soft, nontender, nondistended, positive bowel sounds Extremities: no cyanosis or clubbing; no edema Skin: warm and dry Objective Data Vital Signs Vital Signs: Vital Signs Temp Pulse Resp BP Pulse Ox 04/23/21 08:46 88 18 02/11/22 08:39 96 04/23/21 08:37 88 18 04/23/21 08:00 36.3 C L 93 19 98/59 L 97 04/23/21 05:39 36.5 C 95 18 137/64 96 04/23/21 04:00 101 H 04/23/21 02:36 88 18 04/23/21 02:28 82 18 04/23/21 00:00 97 04/22/21 21:07 86 18 04/22/21 20:58 94 18 04/22/21 20:51 102 H 18 97/51 L 95 04/22/21 20:00 36.4 C 104 H 18 125/74 95 Intake/Output Intake/Output: Intake & Output 04/20/21 04/21/21 04/22/21 04/23/21 23:59 23:59 23:59 23:59 Intake Total 2300 760 2600 640 Output Total 375 Balance 3295 237 6115 640 Meds/Results Medications: Active Medications Generic Name Dose Route Start Last Admin Trade Name Freq PRN Reason Stop Dose Admin Hydrocodone Bitart/Acetaminophen 1 tab 04/18/21 10:39 Hydrocodone/Acetaminophen (*Crx) 5-325 Mg Tablet PO
--- NOTE | 2021-04-23 12:39 | PM.PNNEP ---
Progress Note: A&P Assessment and Plan (1) TINA (acute kidney injury): Code(s): N17.9 - Acute kidney failure, unspecified Status: Acute Assessment and Plan: etiology not entirely clear normal creatinine at baseline abruptly declined on 04/21/21 (creatinine went from 0.4mg/dl to 2.5mg/dl) possible etiologies include: relative hypotension (and associated renal hypoperfusion) prerenal factors infection (pneumonia + pulmonary abscess) reaction to antibiotics? (Abx have since been changed) contrast exposure (but that was on 04/15/21) evaluation to date: renal suggestive of CKD but no onbstruction urine electrolytes pre-renal urine eosinophils negative CPK low creatinine still elevated but rate of rise has decreased continue IVFs for now (and as long as respiratory status is stable) follow I/Os and repeat labs (2) Hyponatremia: Code(s): E87.1 - Hypo-osmolality and hyponatremia Status: Acute Assessment and Plan: resolved due to renal failure and current lung issues follow trend with current interventions (3) Cavitating mass in left lower lung lobe: Code(s): J98.4 - Other disorders of lung Status: Acute Assessment and Plan: as noted by imaging to date presumed to be a pulmonary abscess Pulmonary following s/p bronchoscopy (on 04/22/21) - follow-up on cultures/BAL results (4) Hypertension: Code(s): I10 - Essential (primary) hypertension Status: Acute Assessment and Plan: despite history, running relatively low follow trend of hemodynamics Will continue to follow. Subjective Date/time seen: 04/23/21 12:39 From a respiratory standpoint, she appears to be making significant improvement; renal function/creatinine still rising but still making urine and tolerating IVFs; still with a productive cough but this seems less; no other acute issues/events overnight or earlier this morning. Exam Narrative: General: WD/WN female in NAD Heart: normal S1 and S2; no rub Lungs: clear to auscultation Abdomen: soft, nontender, nondistended, positive bowel sounds Extremities: no cyanosis or clubbing; no edema Skin: warm and dry Objective Data Vital Signs Vital Signs: Vital Signs Temp Pulse Resp BP Pulse Ox 04/23/21 08:46 88 18 04/23/21 08:39 96 04/23/21 08:37 88 18 04/23/21 08:00 36.3 C L 93 19 98/59 L 97 04/23/21 05:39 36.5 C 95 18 137/64 96 04/23/21 04:00 101 H 04/23/21 02:36 88 18 04/23/21 02:28 82 18 04/23/21 00:00 97 04/22/21 21:07 86 18 04/22/21 20:58 94 18 04/22/21 20:51 102 H 18 97/51 L 95 04/22/21 20:00 36.4 C 104 H 18 125/74 95 Intake/Output Intake/Output: Intake & Output 04/20/21 04/21/21 04/22/21 04/23/21 23:59 23:59 23:59 23:59 Intake Total 2300 760 2600 640 Output Total 375 Balance 4945 468 4703 640 Meds/Results Medications: Active Medications Generic Name Dose Route Start Last Admin Trade Name Freq PRN Reason Stop Dose Admin Hydrocodone Bitart/Acetaminophen 1 tab 04/18/21 10:39 Hydrocodone/Acetaminophen (*Crx) 5-325 Mg Tablet PO Q4H PRN Pain Rated 4-6 Albuterol 1 puff 04/17/21 00:30 Albuterol Sulfate (*Sp) Aerosol 1 Puff INHALATION Q4H PRN shortness of breath or wheezing Albuterol 2.5 mg 04/19/21 08:00 04/23/21 13:35 Albuterol Sulfate Neb 2.5 Mg/0.5 Ml Inh INHALATION 2.5 mg Q6HRT ANUM Administration Alprazolam 0.5 mg 04/17/21 00:30 Alprazolam (*Crx) 0.5 Mg Tablet PO BID PRN anxiety Aspirin 81 mg 04/17/21 09:00 04/23/21 09:21 Aspirin 81 Mg Chewable Tablet PO 81 mg DAILY ANUM Administration Duloxetine HCl 60 mg 04/17/21 09:00 04/23/21 09:21 Duloxetine Hcl 60 Mg Capsule.Dr PO 60 mg QAM ANUM Administration Enoxaparin Sodium 40 mg 04/17/21 09:00 04/23/21 09:21 Enoxaparin 40 Mg/0.4 Ml Syringe SUB-Q 40 mg CASEY
--- NOTE | 2021-04-23 14:00 | PM.IMPN ---
Progress Note: A&P Assessment and Plan (1) Cavitating mass in left lower lung lobe: Code(s): J98.4 - Other disorders of lung Status: Acute (2) Sepsis: Qualifiers: Sepsis acute organ dysfunction status: unspecified Sepsis type: sepsis due to unspecified organism Qualified Code(s): A41.9 - Sepsis, unspecified organism Code(s): A41.9 - Sepsis, unspecified organism Status: Acute (3) Pneumonia: Qualifiers: Laterality: unspecified laterality Lung location: unspecified part of lung Pneumonia type: due to unspecified organism Qualified Code(s): J18.9 - Pneumonia, unspecified organism Code(s): J18.9 - Pneumonia, unspecified organism Status: Acute (4) Tobacco abuse: Code(s): Z72.0 - Tobacco use Status: Acute (5) Gastroesophageal reflux disease: Code(s): K21.9 - Gastro-esophageal reflux disease without esophagitis Status: Acute (6) Hyperlipidemia: Code(s): E78.5 - Hyperlipidemia, unspecified Status: Acute (7) Hypertension: Code(s): I10 - Essential (primary) hypertension Status: Acute (8) Hyponatremia: Code(s): E87.1 - Hypo-osmolality and hyponatremia Status: Acute (9) TINA (acute kidney injury): Code(s): N17.9 - Acute kidney failure, unspecified Status: Acute Additional Plan 04/20/21 WBCs stable 23-25k BG at goal BP labile on Xanax no BP meds RF WNL Vanco < 5 supplemental O2 via NC pulm following cont current care 04/21/2021 continues to improve Case reviewed with pulmonology recommendations appreciated Will go for CT imaging tomorrow Further recommendations regarding bronchoscopy or biopsy to follow No further adjustments in medical regimen today Continue current care 04/22/21 consult nephro for worsening TINA bronch without findings of mass or lesion awaiting BAL results nephro recs appreciated 04/23/21 WBC and CRP down trending Rising creatinine is slowing Nephrology following BAL results pending Continue IV fluids Pending further nephrology recs Subjective Date/time seen: 04/23/21 14:00 Patient doing better today she reports that 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 Exam Narrative: General: NAD nontoxic appearing HEENT: EOMI. Sclerae anicteric. moist mucus membranes. Neck: Supple. No adenopathy or JVD. Respiratory: Respirations are even and nonlabored. She is speaking in full sentences.[place] Cardiovascular: S1-S2. RRR Skin: Warm and dry. No rash or lesions on limited exam. Extremities: No cyanosis, clubbing, or edema. Neurological: Alert. Cranial nerves 2-12 are grossly intact. No gross focal deficits to casual conversation. Psychiatric: Pleasant and cooperative with normal mood and affect. Judgment and insight intact. Objective Data Vital Signs Vital Signs: Vital Signs - 24 hr 04/22/21 14:50 04/22/21 15:00 04/22/21 15:01 Temperature Pulse Rate 92 96 Respiratory Rate 18 18 Blood Pressure Pulse Oximetry 96 04/22/21 16:00 04/22/21 20:00 04/22/21 20:51 Temperature 97.6 F Pulse Rate 102 H 104 H 102 H Respiratory Rate 18 18 Blood Pressure 125/74 97/51 L Pulse Oximetry 95 95 04/22/21 20:58 04/22/21 21:07 04/23/21 00:00 Temperature Pulse Rate 94 86 97 Respiratory Rate 18 18 Blood Pressure Pulse Oximetry 04/23/21 02:28 04/23/21 02:36 04/23/21 04:00 Temperature Pulse Rate 82 88 101 H Respiratory Rate 18 18 Blood Pressure Pulse Oximetry 04/23/21 05:39 04/23/21 08:37 04/23/21 08:39 Temperature 97.7 F Pulse Rate 95 88 Respiratory Rate 18 18 Blood Pressure 137/64 Pulse Oximetry 96 96 04/23/21 13:35 Temperature Pulse Rate 82 Respiratory Rate 18 Blood Pressure Pulse Oximetry Intake/Output Intake/O
[2021-04-23] MEDS: SIMVASTATIN 20 MG TABLET PO (20:19)
[2021-04-24] VITALS (12 sets, daily range): BP systolic 112–146; BP diastolic 67–83; PULSE 79–95; RESP 16–18; TEMP 36.4–36.6; O2SAT 97–99
[2021-04-24] MEDS: SODIUM CHLORIDE 0.9% IV 1,000 ML 75 ML IV CONT (00:18)
[2021-04-24] MEDS: IPRATROPIUM BR 0.02% INH SOLN 0.5 MG/2.5 ML VIAL INHALATION ×2 (02:45→08:46)
[2021-04-24] MEDS: ALBUTEROL SULFATE NEB 2.5 MG/0.5 ML INH INHALATION ×2 (02:45→08:46)
[2021-04-24] MEDS: CLINDAMYCIN 600 MG/D5W 50 ML 600 MG/50 ML PIGGYBACK 100 MG IVPB ×3 (06:45→20:27)
[2021-04-24 06:48] LABS: Potassium 3.9 mmol/L (3.4-5.0)
[2021-04-24 06:56] LABS: Albumin Level 2.6 g/dL (3.5-5.1); Anion Gap 3 mmol/L (8-16); Blood Urea Nitrogen 26 mg/dL (7-17); Calcium 7.9 mg/dL (8.4-10.2); Carbon Dioxide 27 mmol/L (22-30); Chloride 110 mmol/L (98-107); Estimated CRCL calculation 14 ml/min; Estimated Glomerular Filt Rate 16; Glucose 101 mg/dL (65-110); Phosphorus 7.2 mg/dL (2.5-4.5); Sodium 140 mmol/L (137-145)
[2021-04-24] MEDS: ASPIRIN 81 MG CHEWABLE TABLET PO (09:22)
[2021-04-24] MEDS: DULoxetine HCL 60 MG CAPSULE.DR PO (09:22)
[2021-04-24] MEDS: ENOXAPARIN 40 MG/0.4 ML SYRINGE SUB-Q (09:22)
[2021-04-24] MEDS: PANTOPRAZOLE 40 MG TABLET PO (09:22)
--- NOTE | 2021-04-24 11:57 | P.PNNP_ITS ---
Progress Note: A&P Assessment and Plan (1) TINA (acute kidney injury): Code(s): N17.9 - Acute kidney failure, unspecified Status: Acute Assessment and Plan: * acute kidney injury. Creatinine normal at baseline. * renal ultrasound shows echogenicity but no acute changes. * Urine electrolytes are pre renal * CPK is okay * etiology not entirely clear * normal creatinine at baseline * possible etiologies include: * relative hypotension (and associated renal hypoperfusion) * prerenal factors * infection (pneumonia + pulmonary abscess) * reaction to antibiotics? (Abx have since been changed) * contrast exposure (but that was on 04/15/21) * creatinine still elevated but Today it declined. * continue IVFs for now (and as long as respiratory status is stable) * Check renal panel in the morning (2) Hyponatremia: Code(s): E87.1 - Hypo-osmolality and hyponatremia Status: Acute Assessment and Plan: * resolved * due to renal failure and current lung issues * follow trend with current interventions (3) Cavitating mass in left lower lung lobe: Code(s): J98.4 - Other disorders of lung Status: Acute Assessment and Plan: * as noted by imaging to date * presumed to be a pulmonary abscess * Pulmonary following * s/p bronchoscopy (on 04/22/21) - follow-up on cultures/BAL results (4) Hypertension: Code(s): I10 - Essential (primary) hypertension Status: Acute Assessment and Plan: * despite history, running relatively low * systolic between 100 and 122. Subjective Date/time seen: 04/24/21 11:57 Interval history: patient is alert. She feels better. She is eager for discharge. Exam 2 Narrative: General: WD/WN female in NAD Heart: normal S1 and S2; no rub or subcu not Lungs: clear to auscultation Abdomen: soft, nontender, nondistended, positive bowel sounds Extremities: no cyanosis or clubbing; no edema Skin: No rash Objective Data Vital Signs Vital Signs: Vital Signs - 24 hr 04/23/21 12:00 04/23/21 13:35 04/23/21 15:51 Temperature Pulse Rate 88 82 Respiratory Rate 18 Blood Pressure 104/61 Pulse Oximetry 99 04/23/21 15:53 04/23/21 16:00 04/23/21 20:00 Temperature Pulse Rate 90 100 Respiratory Rate 18 Blood Pressure 105/55 L Pulse Oximetry 95 94 04/23/21 20:34 04/23/21 20:38 04/23/21 20:43 Temperature Pulse Rate 94 90 Respiratory Rate 18 18 Blood Pressure Pulse Oximetry 95 04/23/21 22:00 04/23/21 22:03 04/23/21 22:05 Temperature 36.5 C Pulse Rate 100 Respiratory Rate 18 Blood Pressure 122/60 120/56 L 101/55 L Pulse Oximetry 94 04/24/21 00:00 04/24/21 02:46 04/24/21 02:55 Temperature Pulse Rate 79 89 87 Respiratory Rate 18 18 Blood Pressure Pulse Oximetry 04/24/21 04:00 04/24/21 06:00 04/24/21 08:00 Temperature 36.4 C Pulse Rate 79 79 92 Respiratory Rate 18 18 Blood Pressure 112/74 Pulse Oximetry 99 99 04/24/21 08:46 04/24/21 08:58 Temperatur
--- NOTE | 2021-04-24 11:57 | PM.PNNEP ---
Progress Note: A&P Assessment and Plan (1) TINA (acute kidney injury): Code(s): N17.9 - Acute kidney failure, unspecified Status: Acute Assessment and Plan: acute kidney injury. Creatinine normal at baseline. renal ultrasound shows echogenicity but no acute changes. Urine electrolytes are pre renal CPK is okay etiology not entirely clear normal creatinine at baseline possible etiologies include: relative hypotension (and associated renal hypoperfusion) prerenal factors infection (pneumonia + pulmonary abscess) reaction to antibiotics? (Abx have since been changed) contrast exposure (but that was on 04/15/21) creatinine still elevated but Today it declined. continue IVFs for now (and as long as respiratory status is stable) Check renal panel in the morning (2) Hyponatremia: Code(s): E87.1 - Hypo-osmolality and hyponatremia Status: Acute Assessment and Plan: resolved due to renal failure and current lung issues follow trend with current interventions (3) Cavitating mass in left lower lung lobe: Code(s): J98.4 - Other disorders of lung Status: Acute Assessment and Plan: as noted by imaging to date presumed to be a pulmonary abscess Pulmonary following s/p bronchoscopy (on 04/22/21) - follow-up on cultures/BAL results (4) Hypertension: Code(s): I10 - Essential (primary) hypertension Status: Acute Assessment and Plan: despite history, running relatively low systolic between 100 and 122. Subjective Date/time seen: 04/24/21 11:57 Interval history: patient is alert. She feels better. She is eager for discharge. Exam Narrative: General: WD/WN female in NAD Heart: normal S1 and S2; no rub or subcu not Lungs: clear to auscultation Abdomen: soft, nontender, nondistended, positive bowel sounds Extremities: no cyanosis or clubbing; no edema Skin: No rash Objective Data Vital Signs Vital Signs: Vital Signs - 24 hr 04/23/21 12:00 04/23/21 13:35 04/23/21 15:51 Temperature Pulse Rate 88 82 Respiratory Rate 18 Blood Pressure 104/61 Pulse Oximetry 99 04/23/21 15:53 04/23/21 16:00 04/23/21 20:00 Temperature Pulse Rate 90 100 Respiratory Rate 18 Blood Pressure 105/55 L Pulse Oximetry 95 94 04/23/21 20:34 04/23/21 20:38 04/23/21 20:43 Temperature Pulse Rate 94 90 Respiratory Rate 18 18 Blood Pressure Pulse Oximetry 95 04/23/21 22:00 04/23/21 22:03 04/23/21 22:05 Temperature 36.5 C Pulse Rate 100 Respiratory Rate 18 Blood Pressure 122/60 120/56 L 101/55 L Pulse Oximetry 94 04/24/21 00:00 04/24/21 02:46 04/24/21 02:55 Temperature Pulse Rate 79 89 87 Respiratory Rate 18 18 Blood Pressure Pulse Oximetry 04/24/21 04:00 04/24/21 06:00 04/24/21 08:00 Temperature 36.4 C Pulse Rate 79 79 92 Respiratory Rate 18 18 Blood Pressure 112/74 Pulse Oximetry 99 99 04/24/21 08:46 04/24/21 08:58 Temperature Pulse Rate 95 92 Respiratory Rate 18 18 Blood Pressure Pulse Oximetry Intake/Output Intake/Output: Intake & Output 04/21/21 04/22/21 04/23/21 04/24/21 23:59 23:59 23:59 23:59 Intake Total 760 2600 3350 1900 Balance 760 2600 3350 1900 Meds/Results Medications: Active Medications Generic Name Dose Route Start Last Admin Trade Name Freq PRN Reason Stop Dose Admin Hydrocodone Bitart/Acetaminophen 1 tab 04/18/21 10:39 Hydrocodone/Acetaminophen (*Crx) 5-325 Mg Tablet PO Q4H PRN Pain Rated 4-6 Albuterol 1 puff 04/17/21 00:30 Albuterol Sulfate (*Sp) Aerosol 1 Puff INHALATION Q4H PRN shortness of breath or wheezing Alprazolam 0.5 mg 04/17/21 00:30 Alprazolam (*Crx) 0.5 Mg Tablet PO BID PRN anxiety Aspirin 81 mg 04/17/21 09:00 04/24/21 09:22 Aspirin 81 Mg Chewable Tablet PO 81 mg DAILY ANUM Administration Duloxetine HCl 60 mg 0
--- NOTE | 2021-04-24 15:14 | PM.IMPN ---
Progress Note: A&P Assessment and Plan (1) Cavitating mass in left lower lung lobe: Code(s): J98.4 - Other disorders of lung Status: Acute (2) Sepsis: Qualifiers: Sepsis acute organ dysfunction status: unspecified Sepsis type: sepsis due to unspecified organism Qualified Code(s): A41.9 - Sepsis, unspecified organism Code(s): A41.9 - Sepsis, unspecified organism Status: Acute (3) Pneumonia: Qualifiers: Laterality: unspecified laterality Lung location: unspecified part of lung Pneumonia type: due to unspecified organism Qualified Code(s): J18.9 - Pneumonia, unspecified organism Code(s): J18.9 - Pneumonia, unspecified organism Status: Acute (4) Tobacco abuse: Code(s): Z72.0 - Tobacco use Status: Acute (5) Gastroesophageal reflux disease: Code(s): K21.9 - Gastro-esophageal reflux disease without esophagitis Status: Acute (6) Hyperlipidemia: Code(s): E78.5 - Hyperlipidemia, unspecified Status: Acute (7) Hypertension: Code(s): I10 - Essential (primary) hypertension Status: Acute (8) Hyponatremia: Code(s): E87.1 - Hypo-osmolality and hyponatremia Status: Acute (9) TINA (acute kidney injury): Code(s): N17.9 - Acute kidney failure, unspecified Status: Acute Additional Plan 04/20/21 WBCs stable 23-25k BG at goal BP labile on Xanax no BP meds RF WNL Vanco < 5 supplemental O2 via NC pulm following cont current care 04/21/2021 continues to improve Case reviewed with pulmonology recommendations appreciated Will go for CT imaging tomorrow Further recommendations regarding bronchoscopy or biopsy to follow No further adjustments in medical regimen today Continue current care 04/22/21 consult nephro for worsening TINA bronch without findings of mass or lesion awaiting BAL results nephro recs appreciated 04/23/21 WBC and CRP down trending Rising creatinine is slowing Nephrology following BAL results pending Continue IV fluids Pending further nephrology recs 04/24/21 renal fxn improving pulm status improving pt on RA will dc w clinda 300mg PO QID pending nephro clearance outpt follow up w PCP nephro and pulm after dc anticipated Subjective Date/time seen: 04/24/21 15:14 feeling better waiting for renal fxn to return would like to leave tomorrow for son's 21st Bday Exam Narrative: General: NAD nontoxic appearing HEENT: EOMI. Sclerae anicteric. moist mucus membranes. Neck: Supple. No adenopathy or JVD. Respiratory: Respirations are even and nonlabored. She is speaking in full sentences. on RA Cardiovascular: S1-S2. RRR Skin: Warm and dry. No rash or lesions on limited exam. Extremities: No cyanosis, clubbing, or edema. Neurological: Alert. Cranial nerves 2-12 are grossly intact. No gross focal deficits to casual conversation. Psychiatric: Pleasant and cooperative with normal mood and affect. Judgment and insight intact. Objective Data Vital Signs Vital Signs: Vital Signs - 24 hr 04/23/21 15:51 04/23/21 15:53 04/23/21 16:00 Temperature Pulse Rate 90 Respiratory Rate Blood Pressure 104/61 105/55 L Pulse Oximetry 99 95 04/23/21 20:00 04/23/21 20:34 04/23/21 20:38 Temperature Pulse Rate 100 94 Respiratory Rate 18 18 Blood Pressure Pulse Oximetry 94 95 04/23/21 20:43 04/23/21 22:00 04/23/21 22:03 Temperature 97.7 F Pulse Rate 90 100 Respiratory Rate 18 18 Blood Pressure 122/60 120/56 L Pulse Oximetry 94 04/23/21 22:05 04/24/21 00:00 04/24/21 02:46 Temperature Pulse Rate 79 89 Respiratory Rate 18 Blood Pressure 101/55 L Pulse Oximetry 04/24/21 02:55 04/24/21 04:00 04/24/21 06:00 Temperature 97.6 F Pulse Rate 87 79 79 Respiratory Rate 18 18 Blood Pressure 112/74 Pulse Oximetry 99 04/24/21 08:00 04/24/21 08:46 04/24/21 08:58 Temperature Pulse Rate 92
[2021-04-24] MEDS: SIMVASTATIN 20 MG TABLET PO (20:27)
[2021-04-25] VITALS (7 sets, daily range): BP systolic 103–145; BP diastolic 56–85; PULSE 84–89; RESP 16–18; TEMP 36.4–36.8; O2SAT 92–98
[2021-04-25] MEDS: SODIUM CHLORIDE 0.9% IV 1,000 ML 75 ML IV CONT ×2 (05:14→05:27)
[2021-04-25] MEDS: CLINDAMYCIN 600 MG/D5W 50 ML 600 MG/50 ML PIGGYBACK 100 MG IVPB ×3 (05:27→21:25)
[2021-04-25 06:23] LABS: Albumin Level 2.6 g/dL (3.5-5.1); Anion Gap 9 mmol/L (8-16); Blood Urea Nitrogen 23 mg/dL (7-17); Carbon Dioxide 25 mmol/L (22-30); Chloride 110 mmol/L (98-107); Estimated CRCL calculation 18 ml/min; Estimated Glomerular Filt Rate 16; Glucose 100 mg/dL (65-110); Phosphorus 7.3 mg/dL (2.5-4.5); Potassium 3.9 mmol/L (3.4-5.0); Sodium 144 mmol/L (137-145)
[2021-04-25] MEDS: ERGOCALCIFEROL 50,000 UNIT CAPSULE 50000 UNITS PO (09:02)
[2021-04-25] MEDS: ASPIRIN 81 MG CHEWABLE TABLET PO (09:02)
[2021-04-25] MEDS: DULoxetine HCL 60 MG CAPSULE.DR PO (09:03)
[2021-04-25] MEDS: PANTOPRAZOLE 40 MG TABLET PO (09:03)
[2021-04-25] MEDS: UMECLIDINIUM/VILANTEROL 62.5-25 MCG ELLIPTA 1 PUFF INHALATION (09:08)
--- NOTE | 2021-04-25 10:19 | P.PNNP_ITS ---
Progress Note: A&P Assessment and Plan (1) TINA (acute kidney injury): Code(s): N17.9 - Acute kidney failure, unspecified Status: Acute Assessment and Plan: * acute kidney injury. Creatinine normal at baseline. * renal ultrasound shows echogenicity but no acute changes. * Urine electrolytes are pre renal * CPK is okay * etiology not entirely clear * possible etiologies include: * relative hypotension (and associated renal hypoperfusion) . Off BP meds. * prerenal factors . She is rehydrated. * infection (pneumonia + pulmonary abscess) . Evaluation is underway * reaction to antibiotics? (Abx have since been changed) * contrast exposure (but that was on 04/15/21) * creatinine still elevated but Today it declined slightly. Not enough to be convincing. She is close to discharge other than from the kidney standpoint. So I will stop IV fluids and see how her creatinine is tomorrow. (2) Hyponatremia: Code(s): E87.1 - Hypo-osmolality and hyponatremia Status: Acute Assessment and Plan: * resolved * due to renal failure and current lung issues * follow trend with current interventions (3) Cavitating mass in left lower lung lobe: Code(s): J98.4 - Other disorders of lung Status: Acute Assessment and Plan: * as noted by imaging to date * presumed to be a pulmonary abscess * Pulmonary following * s/p bronchoscopy (on 04/22/21) - follow-up on cultures/BAL results (4) Hypertension: Code(s): I10 - Essential (primary) hypertension Status: Acute Assessment and Plan: * despite history, running relatively low * systolic between 100 and 122. Subjective Date/time seen: 04/25/21 10:19 Interval history: Radha is being pretty good today. No shortness of breath. She is still getting IV fluids eating well Review of Systems Cardiovascular: Cardiovascular: Reports no additional cardiovascular complaints Respiratory: Respiratory: Reports no additional respiratory complaints Gastrointestinal: Gastrointestinal: Reports no additional gastrointestinal complaints Genitourinary: Genitourinary: Reports no additional female genitourinary complaints Exam Narrative: WDWN in NAD skin no rash head ncat lungs decreased breath sounds at the bases. cor reg no rub abd BS+ nontender and soft ext no edema. Objective Data Vital Signs Vital Signs: Vital Signs - 24 hr 04/24/21 12:00 04/24/21 16:00 04/24/21 20:00 Temperature 36.6 C Pulse Rate 81 84 95 Respiratory Rate 16 Blood Pressure 123/73 Pulse Oximetry 97 04/24/21 20:16 04/25/21 09:11 Temperature Pulse Rate 95 84 Respiratory Rate 18 Blood Pressure 133/71 Pulse Oximetry 97 Intake/Output Intake/Output: Intake & Output 04/22/21 04/23/21 04/24/21 04/25/21 23:59 23:59 23:59 23:59 Intake Total 2600 3350 4730 1989 Balance 2600 3350 4730 1989 Meds/Results Medications: Active Medications Generic Name Dose Route Start Last Admin Trade Name Freq PRN Reason Stop Dose Admin Hydrocodone Bitart/Acetaminophen 1 tab 04/18/21 10:39 Hydrocodone/Acetaminophen (*Crx) 5-325 Mg Tablet PO Q4H PRN
--- NOTE | 2021-04-25 10:19 | PM.PNNEP ---
Progress Note: A&P Assessment and Plan (1) TINA (acute kidney injury): Code(s): N17.9 - Acute kidney failure, unspecified Status: Acute Assessment and Plan: acute kidney injury. Creatinine normal at baseline. renal ultrasound shows echogenicity but no acute changes. Urine electrolytes are pre renal CPK is okay etiology not entirely clear possible etiologies include: relative hypotension (and associated renal hypoperfusion) . Off BP meds. prerenal factors . She is rehydrated. infection (pneumonia + pulmonary abscess) . Evaluation is underway reaction to antibiotics? (Abx have since been changed) contrast exposure (but that was on 04/15/21) creatinine still elevated but Today it declined slightly. Not enough to be convincing. She is close to discharge other than from the kidney standpoint. So I will stop IV fluids and see how her creatinine is tomorrow. (2) Hyponatremia: Code(s): E87.1 - Hypo-osmolality and hyponatremia Status: Acute Assessment and Plan: resolved due to renal failure and current lung issues follow trend with current interventions (3) Cavitating mass in left lower lung lobe: Code(s): J98.4 - Other disorders of lung Status: Acute Assessment and Plan: as noted by imaging to date presumed to be a pulmonary abscess Pulmonary following s/p bronchoscopy (on 04/22/21) - follow-up on cultures/BAL results (4) Hypertension: Code(s): I10 - Essential (primary) hypertension Status: Acute Assessment and Plan: despite history, running relatively low systolic between 100 and 122. Subjective Date/time seen: 04/25/21 10:19 Interval history: Radha is being pretty good today. No shortness of breath. She is still getting IV fluids eating well Review of Systems Cardiovascular: Cardiovascular: Reports no additional cardiovascular complaints Respiratory: Respiratory: Reports no additional respiratory complaints Gastrointestinal: Gastrointestinal: Reports no additional gastrointestinal complaints Genitourinary: Genitourinary: Reports no additional female genitourinary complaints Exam Narrative: WDWN in NAD skin no rash head ncat lungs decreased breath sounds at the bases. cor reg no rub abd BS+ nontender and soft ext no edema. Objective Data Vital Signs Vital Signs: Vital Signs - 24 hr 04/24/21 12:00 04/24/21 16:00 04/24/21 20:00 Temperature 36.6 C Pulse Rate 81 84 95 Respiratory Rate 16 Blood Pressure 123/73 Pulse Oximetry 97 04/24/21 20:16 04/25/21 09:11 Temperature Pulse Rate 95 84 Respiratory Rate 18 Blood Pressure 133/71 Pulse Oximetry 97 Intake/Output Intake/Output: Intake & Output 04/22/21 04/23/21 04/24/21 04/25/21 23:59 23:59 23:59 23:59 Intake Total 2600 3350 4730 1989 Balance 2600 3350 4730 1989 Meds/Results Medications: Active Medications Generic Name Dose Route Start Last Admin Trade Name Freq PRN Reason Stop Dose Admin Hydrocodone Bitart/Acetaminophen 1 tab 04/18/21 10:39 Hydrocodone/Acetaminophen (*Crx) 5-325 Mg Tablet PO Q4H PRN Pain Rated 4-6 Albuterol 1 puff 04/17/21 00:30 Albuterol Sulfate (*Sp) Aerosol 1 Puff INHALATION Q4H PRN shortness of breath or wheezing Alprazolam 0.5 mg 04/17/21 00:30 Alprazolam (*Crx) 0.5 Mg Tablet PO BID PRN anxiety Aspirin 81 mg 04/17/21 09:00 04/25/21 09:02 Aspirin 81 Mg Chewable Tablet PO 81 mg DAILY ANUM Administration Duloxetine HCl 60 mg 04/17/21 09:00 04/25/21 09:03 Duloxetine Hcl 60 Mg Capsule.Dr PO 60 mg QAM ANUM Administration Enoxaparin Sodium 40 mg 04/17/21 09:00 04/25/21 09:02 Enoxaparin 40 Mg/0.4 Ml Syringe SUB-Q Not Given DAILY [facility] Ergocalciferol 50,000 unit 04/18/21 09:00 04/25/21 09:02 Ergocalciferol 50,000 Unit Capsule PO 50,000 unit Ingram@0900 [facility] Administration Clindamycin
--- NOTE | 2021-04-25 18:01 | PM.IMPN ---
Progress Note: A&P Assessment and Plan (1) Cavitating mass in left lower lung lobe: Code(s): J98.4 - Other disorders of lung Status: Acute (2) Sepsis: Qualifiers: Sepsis acute organ dysfunction status: unspecified Sepsis type: sepsis due to unspecified organism Qualified Code(s): A41.9 - Sepsis, unspecified organism Code(s): A41.9 - Sepsis, unspecified organism Status: Acute (3) Pneumonia: Qualifiers: Laterality: unspecified laterality Lung location: unspecified part of lung Pneumonia type: due to unspecified organism Qualified Code(s): J18.9 - Pneumonia, unspecified organism Code(s): J18.9 - Pneumonia, unspecified organism Status: Acute (4) Tobacco abuse: Code(s): Z72.0 - Tobacco use Status: Acute (5) Gastroesophageal reflux disease: Code(s): K21.9 - Gastro-esophageal reflux disease without esophagitis Status: Acute (6) Hyperlipidemia: Code(s): E78.5 - Hyperlipidemia, unspecified Status: Acute (7) Hypertension: Code(s): I10 - Essential (primary) hypertension Status: Acute (8) Hyponatremia: Code(s): E87.1 - Hypo-osmolality and hyponatremia Status: Acute (9) TINA (acute kidney injury): Code(s): N17.9 - Acute kidney failure, unspecified Status: Acute Additional Plan 04/20/21 WBCs stable 23-25k BG at goal BP labile on Xanax no BP meds RF WNL Vanco < 5 supplemental O2 via NC pulm following cont current care 04/21/2021 continues to improve Case reviewed with pulmonology recommendations appreciated Will go for CT imaging tomorrow Further recommendations regarding bronchoscopy or biopsy to follow No further adjustments in medical regimen today Continue current care 04/22/21 consult nephro for worsening TINA bronch without findings of mass or lesion awaiting BAL results nephro recs appreciated 04/23/21 WBC and CRP down trending Rising creatinine is slowing Nephrology following BAL results pending Continue IV fluids Pending further nephrology recs 04/24/21 renal fxn improving pulm status improving pt on RA will dc w clinda 300mg PO QID pending nephro clearance outpt follow up w PCP nephro and pulm after dc anticipated 04/25/21 small decline in Cr today cont to monitor renal fxn in pt dc IVFs cont Clinda 300mg PO QID at dc nephro and pulm recs appreciated Subjective Date/time seen: 04/25/21 18:01 pt doing ok would like to go home but understands she has not been cleared by nephrology yet. overall she is feeling a lot better Exam Narrative: General: NAD nontoxic appearing HEENT: EOMI. Sclerae anicteric. moist mucus membranes. Neck: Supple. No adenopathy or JVD. Respiratory: Respirations are even and nonlabored. She is speaking in full sentences. CTA B/L on RA Cardiovascular: S1-S2. RRR Skin: Warm and dry. No rash or lesions on limited exam. Extremities: No cyanosis, clubbing, or edema. Neurological: Alert. Cranial nerves 2-12 are grossly intact. No gross focal deficits to casual conversation. Psychiatric: Pleasant and cooperative with normal mood and affect. Judgment and insight intact. Objective Data Vital Signs Vital Signs: Vital Signs - 24 hr 04/24/21 20:00 04/24/21 20:16 04/25/21 08:00 Temperature 97.9 F Pulse Rate 95 95 84 Respiratory Rate 16 18 Blood Pressure 123/73 133/71 Pulse Oximetry 97 97 97 04/25/21 09:11 04/25/21 14:00 Temperature 98.2 F Pulse Rate 84 87 Respiratory Rate 18 16 Blood Pressure 116/75 Pulse Oximetry 98 Intake/Output Intake/Output: Intake & Output 04/22/21 04/23/21 04/24/21 04/25/21 23:59 23:59 23:59 23:59 Intake Total 2600 3350 4730 3280 Balance 2600 3350 4730 3280 Meds/Results Medications: Active Medications Generic Name Dose Route Start Last Admin Trade Name Freq PRN Reason Stop Dose Admin Hydrocodone Bitart/Acetaminophen 1 tab 04/18/21 10:39
[2021-04-25] MEDS: SIMVASTATIN 20 MG TABLET PO (21:24)
[2021-04-26] MEDS: CLINDAMYCIN 600 MG/D5W 50 ML 600 MG/50 ML PIGGYBACK 100 MG IVPB (05:07)
[2021-04-26 06:01] VITALS: BP 140/77; PULSE 85; RESP 18; TEMP 36.3; O2SAT 94
--- NOTE | 2021-04-26 07:32 | P.PNNP_ITS ---
Progress Note: A&P Assessment and Plan (1) TINA (acute kidney injury): Code(s): N17.9 - Acute kidney failure, unspecified Status: Acute Assessment and Plan: * acute kidney injury. Creatinine normal at baseline. * renal ultrasound shows echogenicity but no acute changes. * Urine electrolytes are pre renal * CPK is okay * etiology not entirely clear * possible etiologies include: * relative hypotension (and associated renal hypoperfusion) . Off BP meds. * prerenal factors . She is rehydrated. * infection (pneumonia + pulmonary abscess) . The patient is getting IV antibiotics now and will get 6 weeks of oral antibiotics and the chest x- ray is going to be followed by Dr. Mendez. * reaction to antibiotics? (Abx have since been changed) . No rash or fevers. No peripheral eosinophilia. * contrast exposure (but that was on 04/15/21) . Any component this is probably resolved. * creatinine still elevated but has been decreasing for the last few days. If it is lower today she could probably go home with close observation of her labs. She can follow with Dr. Puente. (2) Hyponatremia: Code(s): E87.1 - Hypo-osmolality and hyponatremia Status: Acute Assessment and Plan: * resolved * due to renal failure and current lung issues * She is not on a fluid restriction. She can drink if thirsty. (3) Cavitating mass in left lower lung lobe: Code(s): J98.4 - Other disorders of lung Status: Acute Assessment and Plan: * as noted by imaging to date * presumed to be a pulmonary abscess * Pulmonary following * s/p bronchoscopy (on 04/22/21) - follow-up on cultures/BAL results * To get antibiotics for 6 weeks and follow with Dr. Mendez. (4) Hypertension: Code(s): I10 - Essential (primary) hypertension Status: Acute Assessment and Plan: * despite history, running relatively low * systolic between 100 and 122. * Eventually her blood pressure will come up and she will need to be back on her antihypertensives but not now. Subjective Date/time seen: 04/26/21 07:32 Interval history: Radha is feeling well. No shortness of breath. no itch or rash She is off IV fluids. She is eating well. She is eager for discharge. Exam Narrative: WDWN in NAD skin no rash or subcu nodules head ncat lungs decreased breath sounds at the bases. cor reg no rub abd BS+ nontender and soft ext no edema. Objective Data Vital Signs Vital Signs: Vital Signs - 24 hr 04/25/21 08:00 04/25/21 09:11 04/25/21 14:00 Temperature 36.8 C Pulse Rate 84 84 87 Respiratory Rate 18 18 16 Blood Pressure 116/75 Pulse Oximetry 97 98 04/25/21 20:00 04/25/21 20:05 04/25/21 20:08 Temperature Pulse Rate Respiratory Rate Blood Pressure 140/72 103/85 122/64 Pulse Oximetry 98 04/25/21 21:00 04/26/21 06:01 Temperature 36.4 C 36.3 C L Pulse Rate 89 85 Respiratory Rate 16 18 Blood Pressure 118/56 L 140/77 Pulse Oximetry 92 94 Intake/Output Intake/Output: Intake & Output 04/23/21 04/24/21 04/25/21 04/26/21 23:59 23:59 23:59 23:59 Intake Total 3350 4730 3620 2 Balance 3350 4730 3620 2
--- NOTE | 2021-04-26 07:32 | PM.PNNEP ---
Progress Note: A&P Assessment and Plan (1) TINA (acute kidney injury): Code(s): N17.9 - Acute kidney failure, unspecified Status: Acute Assessment and Plan: acute kidney injury. Creatinine normal at baseline. renal ultrasound shows echogenicity but no acute changes. Urine electrolytes are pre renal CPK is okay etiology not entirely clear possible etiologies include: relative hypotension (and associated renal hypoperfusion) . Off BP meds. prerenal factors . She is rehydrated. infection (pneumonia + pulmonary abscess) . The patient is getting IV antibiotics now and will get 6 weeks of oral antibiotics and the chest x-ray is going to be followed by Dr. Mendez. reaction to antibiotics? (Abx have since been changed) . No rash or fevers. No peripheral eosinophilia. contrast exposure (but that was on 04/15/21) . Any component this is probably resolved. creatinine still elevated but has been decreasing for the last few days. If it is lower today she could probably go home with close observation of her labs. She can follow with Dr. Puente. (2) Hyponatremia: Code(s): E87.1 - Hypo-osmolality and hyponatremia Status: Acute Assessment and Plan: resolved due to renal failure and current lung issues She is not on a fluid restriction. She can drink if thirsty. (3) Cavitating mass in left lower lung lobe: Code(s): J98.4 - Other disorders of lung Status: Acute Assessment and Plan: as noted by imaging to date presumed to be a pulmonary abscess Pulmonary following s/p bronchoscopy (on 04/22/21) - follow-up on cultures/BAL results To get antibiotics for 6 weeks [address] follow with Dr. Mendez. (4) Hypertension: Code(s): I10 - Essential (primary) hypertension Status: Acute Assessment and Plan: despite history, running relatively low systolic between 100 and 122. Eventually her blood pressure will come up and she will need to be back on her antihypertensives but not now. Subjective Date/time seen: 04/26/21 07:32 Interval history: Radha is feeling well. No shortness of breath. no itch or rash She is off IV fluids. She is eating well. She is eager for discharge. Exam Narrative: WDWN in NAD skin no rash or subcu nodules head ncat lungs decreased breath sounds at the bases. cor reg no rub abd BS+ nontender and soft ext no edema. Objective Data Vital Signs Vital Signs: Vital Signs - 24 hr 04/25/21 08:00 04/25/21 09:11 04/25/21 14:00 Temperature 36.8 C Pulse Rate 84 84 87 Respiratory Rate 18 18 16 Blood Pressure 116/75 Pulse Oximetry 97 98 04/25/21 20:00 04/25/21 20:05 04/25/21 20:08 Temperature Pulse Rate Respiratory Rate Blood Pressure 140/72 103/85 122/64 Pulse Oximetry 98 04/25/21 21:00 04/26/21 06:01 Temperature 36.4 C 36.3 C L Pulse Rate 89 85 Respiratory Rate 16 18 Blood Pressure 118/56 L 140/77 Pulse Oximetry 92 94 Intake/Output Intake/Output: Intake & Output 04/23/21 04/24/21 04/25/21 04/26/21 23:59 23:59 23:59 23:59 Intake Total 3350 4730 3620 2 Balance 3350 4730 3620 2 Meds/Results Medications: Active Medications Generic Name Dose Route Start Last Admin Trade Name Freq PRN Reason Stop Dose Admin Hydrocodone Bitart/Acetaminophen 1 tab 04/18/21 10:39 Hydrocodone/Acetaminophen (*Crx) 5-325 Mg Tablet PO Q4H PRN Pain Rated 4-6 Albuterol 1 puff 04/17/21 00:30 Albuterol Sulfate (*Sp) Aerosol 1 Puff INHALATION Q4H PRN shortness of breath or wheezing Alprazolam 0.5 mg 04/17/21 00:30 Alprazolam (*Crx) 0.5 Mg Tablet PO BID PRN anxiety Aspirin 81 mg 04/17/21 09:00 04/25/21 09:02 Aspirin 81 Mg Chewable Tablet PO 81 mg DAILY ANUM Administration Duloxetine HCl 60 mg 04/17/21 09:00 04/25/21 09:03 Duloxetine Hcl 60 Mg Capsule. PO 60 mg QAM ANUM Administration Enoxapari
[2021-04-26 08:00] VITALS: BP 103/64; PULSE 84; RESP 18; TEMP 36.5; O2SAT 98
[2021-04-26] MEDS: ASPIRIN 81 MG CHEWABLE TABLET PO (08:02)
[2021-04-26] MEDS: PANTOPRAZOLE 40 MG TABLET PO (08:02)
[2021-04-26] MEDS: DULoxetine HCL 60 MG CAPSULE.DR PO (08:02)
[2021-04-26] MEDS: UMECLIDINIUM/VILANTEROL 62.5-25 MCG ELLIPTA 1 PUFF INHALATION (08:29)
[2021-04-26 08:31] LABS: Albumin Level 3.4 g/dL (3.5-5.1); Anion Gap 11 mmol/L (8-16); Blood Urea Nitrogen 26 mg/dL (7-17); Calcium 8.7 mg/dL (8.4-10.2); Carbon Dioxide 30 mmol/L (22-30); Chloride 100 mmol/L (98-107); Estimated CRCL calculation 21 ml/min; Estimated Glomerular Filt Rate 19; Glucose 93 mg/dL (65-110); Phosphorus 6.6 mg/dL (2.5-4.5); Potassium 4.1 mmol/L (3.4-5.0); Sodium 141 mmol/L (137-145)
--- NOTE | 2021-04-26 09:14 | PM.DS ---
DS: Admitting Diagnosis Discharge Date 04/26/21 Admitting Diagnosis (1) Sepsis: Qualifiers: Sepsis acute organ dysfunction status: unspecified Sepsis type: sepsis due to unspecified organism Qualified Code(s): A41.9 - Sepsis, unspecified organism Code(s): A41.9 - Sepsis, unspecified organism Status: Acute Assessment and Plan: Patient meets criteria for sepsis with fever, tachycardia, leukocytosis, and soft blood pressures in the setting of pneumonia. Lactic acid levels within normal limits. Blood and sputum cultures pending. (2) Pneumonia: Qualifiers: Laterality: unspecified laterality Lung location: unspecified part of lung Pneumonia type: due to unspecified organism Qualified Code(s): J18.9 - Pneumonia, unspecified organism Code(s): J18.9 - Pneumonia, unspecified organism Status: Acute Assessment and Plan: Patient recently finished a course of levofloxacin as an outpatient. Continue Zosyn which was started in the emergency department and add vancomycin for possible post viral pneumonia. I will ask the slip feeder to see her in consultation for further recommendations. (3) Cavitating mass in left lower lung lobe: Code(s): J98.4 - Other disorders of lung Status: Acute Assessment and Plan: Concerning for bronchogenic carcinoma according to CT reading though given sepsis picture she is being treated with broad-spectrum antibiotics as well as detailed above. Radiologist indicates that this is amenable to CT-guided biopsy which can be performed when she is feeling better. (4) Tobacco abuse: Code(s): Z72.0 - Tobacco use Status: Acute Assessment and Plan: Smoking cessation is imperative and was discussed. She denies the need for nicotine patch. (5) Hyponatremia: Code(s): E87.1 - Hypo-osmolality and hyponatremia Status: Acute Assessment and Plan: Likely multifactorial in etiology and secondary to underlying lung disease in addition to dehydration from poor oral intake from decreased appetite over the last week and half. She has been adequately hydrated in the emergency department and we will repeat her BMP in a.m. (6) Hypertension: Code(s): I10 - Essential (primary) hypertension Status: Acute Assessment and Plan: Blood pressures have been running soft as detailed above. Hold antihypertensives for now. DS: Discharge Diagnosis Discharge Diagnosis (1) Cavitating mass in left lower lung lobe: Code(s): J98.4 - Other disorders of lung Status: Acute (2) Sepsis: Qualifiers: Sepsis acute organ dysfunction status: unspecified Sepsis type: sepsis due to unspecified organism Qualified Code(s): A41.9 - Sepsis, unspecified organism Code(s): A41.9 - Sepsis, unspecified organism Status: Acute (3) Pneumonia: Qualifiers: Laterality: unspecified laterality Lung location: unspecified part of lung Pneumonia type: due to unspecified organism Qualified Code(s): J18.9 - Pneumonia, unspecified organism Code(s): J18.9 - Pneumonia, unspecified organism Status: Acute (4) Tobacco abuse: Code(s): Z72.0 - Tobacco use Status: Acute (5) Gastroesophageal reflux disease: Code(s): K21.9 - Gastro-esophageal reflux disease without esophagitis Status: Acute (6) Hyperlipidemia: Code(s): E78.5 - Hyperlipidemia, unspecified Status: Acute (7) Hypertension: Code(s): I10 - Essential (primary) hypertension Status: Acute (8) Hyponatremia: Code(s): E87.1 - Hypo-osmolality and hyponatremia Status: Acute (9) TINA (acute kidney injury): Code(s): N17.9 - Acute kidney failure, unspecified Status: Acute DS: Summary Hospital Course Reason for hospitalization: Cough, abnormal chest imaging. Hospital Course: 65-year-old female presents to the hospital with chief complaint of c
[2021-04-26 10:38] VITALS: BP 124/70; PULSE 90; RESP 18; TEMP 36.5; O2SAT 97
== END 2021-04-26 11:40 | disposition home or self-care (01) | DRG 871 ==
LOC: ANHED 14:21 → ANHIMU 17:09 → ANH3MEDSUR 04-19 04:18
PROVIDERS: Emergency Medicine; Internal Medicine; Internal Medicine Nephrology; Internal Medicine Pulmonary Disease; Physician Assistant; Admitting Provider Internal Medicine; Emergency Provider Emergency Medicine; PCP Family Medicine; Visit Provider Hospitalist
PROC: BB1DZZZ Fluoroscopy of Upper Airways (ICD-10-PCS; CPT 31624; principal; 2021-04-22 10:30)
DX: A41.9 Sepsis, unspecified organism (principal); J18.9 Pneumonia, unspecified organism; J15.9 Unspecified bacterial pneumonia; E87.1 Hypo-osmolality and hyponatremia; N17.9 Acute kidney failure, unspecified; U09.9 Post COVID-19 condition, unspecified; Z20.822 Contact with and (suspected) exposure to COVID-19; J98.4 Other disorders of lung; I10 Essential (primary) hypertension; K21.9 Gastro-esophageal reflux disease without esophagitis; E78.5 Hyperlipidemia, unspecified; M19.90 Unspecified osteoarthritis, unspecified site; Z87.891 Personal history of nicotine dependence; Z86.73 Personal history of transient ischemic attack (TIA), and cerebral infarction without residual deficits
CPT/HCPCS: 36415; 36600; 71045; 71046; 71250; 71260; 76775; 80048; 80053; 80069; 80202; 82533; 82550; 82570; 82805; 82948; 83605; 83735; 83930; 83935; 84145; 84300; 84439; 84443; 84480; 85025; 85027; 85610; 85730; 85999; 86140; 87015; 87040; 87070; 87102; 87116; 87205; 87206; 87449; 87899; 88104; 88108; 88160; 88184; 88305; 88312; 93005; 94640; 96360; 99285; A9270; C9803; J0330; J1100; J1650; J2543; J2704; J3370; J3475; J7030; J7040; J7120; Q9967; U0003; U0005

== ENCOUNTER 2021-05-11 10:06 | Outpatient (CLI) | payer MEDICARE, MEDICAID, SELFPAY ==
--- NOTE | ~2021-05-11 | XR_ITS ---
XR chest 2V 05/11/2021 10:23 Indication: Follow-up lung mass Procedure: 2 view chest Comparison: Comparison to multiple prior studies sequentially, with oldest reviewed study dated 04/26. Findings: There is a cavitary mass left midlung with air-fluid level, unchanged in size allowing for differences of technique. Heart size normal. Right lung clear. No pleural effusion or pneumothorax. Impression: 1: Stable size to cavitary left midlung mass, most likely infectious although malignancy not excluded . Reviewed, dictated and finalized at location A. [employer] DEVELOPER Impression: 1: Stable size to cavitary left midlung mass, most likely infectious although m alignancy not excluded.
== END 2021-05-11 10:07 | disposition home or self-care (01) ==
PROVIDERS: PCP Family Medicine; Visit Provider Internal Medicine Pulmonary Disease
DX: J98.4 Other disorders of lung (principal); J18.9 Pneumonia, unspecified organism
CPT/HCPCS: 71046

== ENCOUNTER 2021-05-31 07:43 | Outpatient (CLI) | payer MEDICARE, SELFPAY ==
--- NOTE | ~2021-05-31 | CT_ITS ---
EXAMINATION: CT diagnostic chest wo con DATE: 05/31/2021 07:59 INDICATION: Abscess of the lung without pneumonia TECHNIQUE: Computed tomography (CT) of the chest was performed without intravenous contrast. The dose -length product (DLP) was 144.61 mGy-cm. Automated exposure control and iterative reconstruction tech [employer] were employed. COMPARISON: 04/22/2021 FINDINGS: There is an approximately 5.1 x 4.2 cm thick-walled cavitary mass with air-fluid level in t he left upper lobe which is decreased in size since the prior examination, consistent with resolving lung abscess. Bulky left hilar lymphadenopathy persists without significant change. There is a stable part solid nodule in the right lower lobe measuring up to 1.5 cm. There is no pleural effusion or pn eumothorax. The heart size is normal. There is calcified coronary artery atherosclerosis. There is a 5.9 cm cyst of the right kidney. Mild thoracic spondylosis is noted. IMPRESSION: 1. Continued interval decrease in size of a thick-walled cavitary mass of the left lower lobe, likely resolving pulmonary abscess although underlying malignancy remains in the differential. Continued fo llow-up CT is recommended. 2. Persistent left hilar lymphadenopathy, reactive versus metastatic. 3. Part solid nodule of the right lower lobe, likely infectious or inflammatory. Continued attention on follow-up CT is recommended. Reviewed, dictated and finalized at location B. IMPRESSION: 1. Continued interval decrease in size of a thick-walled cavitary mass of the l eft lower lobe, likely resolving pulmonary abscess although underlying malignan cy remains in the differential. Continued follow-up CT is recommended. 2. Persistent left hilar lymphadenopathy, reactive versus metastatic. 3. Part solid nodule of the right lower lobe, likely infectious or inflammatory . Continued attention on follow-up CT is recommended.
== END 2021-05-31 07:44 | disposition home or self-care (01) ==
LOC: ANHIMG 07:46
PROVIDERS: PCP Family Medicine; Visit Provider Internal Medicine Pulmonary Disease
DX: J85.2 Abscess of lung without pneumonia (principal)
CPT/HCPCS: 71250

== ENCOUNTER 2021-09-06 14:31 | Outpatient (CLI) | payer MEDICARE, SELFPAY ==
--- NOTE | ~2021-09-06 | CT_ITS ---
EXAMINATION: CT diagnostic chest wo con DATE: 09/06/2021 14:53 INDICATION: Abscess of the lung without pneumonia TECHNIQUE: Computed tomography (CT) of the chest was performed without intravenous contrast. The dose -length product (DLP) was 142.38 mGy-cm. Automated exposure control and iterative reconstruction tech [employer] were employed. COMPARISON: 05/31/2021 FINDINGS: There is a 5.2 x 4.1 cm thick-walled cavitary mass of the left lower lobe. The central port ion of the mass is now predominantly soft tissue density. Peripheral calcifications are again seen in the mass. Bulky left hilar lymphadenopathy persists without significant change. There is also aortop ulmonary window lymphadenopathy. There is a new enlarged periesophageal lymph node measuring 1.9 x 1. 3 cm on image 81. A 1.5 cm part solid nodule of the right lower lobe is stable. No pleural effusion o r pneumothorax. The heart size is normal. There is mild thoracic spondylosis. There is a 5.8 cm cyst of the right kidney. IMPRESSION: 1. Thick-walled cavitary mass of the left lower lobe which is stable in size but with increasing soft tissue density central component. CT-guided biopsy is recommended. 2. Left hilar, aortopulmonary window, and periesophageal lymphadenopathy, concerning for metastatic d isease. 3. Stable part solid nodule of the right lower lobe, and infection/inflammation versus malignancy. Reviewed, dictated and finalized at location A. IMPRESSION: 1. Thick-walled cavitary mass of the left lower lobe which is stable in size bu t with increasing soft tissue density central component. CT-guided biopsy is re commended. 2. Left hilar, aortopulmonary window, and periesophageal lymphadenopathy, riky rning for metastatic disease. 3. Stable part solid nodule of the right lower lobe, and infection/inflammation versus malignancy.
== END 2021-09-06 14:32 | disposition home or self-care (01) ==
PROVIDERS: PCP Family Medicine; Visit Provider Internal Medicine Pulmonary Disease
DX: J85.2 Abscess of lung without pneumonia (principal)
CPT/HCPCS: 71250

== ENCOUNTER 2021-09-27 02:55 | Outpatient (CLI) | payer MEDICARE, SELFPAY ==
[2021-09-22 12:34] VITALS: BMI 22.1
--- NOTE | 2021-09-22 12:34 | PC.NURSE ---
Pre Radiology instructions Report to the Outpatient Waiting Room, entrance under the green pavilion located off [facility], at time _0900_ on date _[id number]_. Procedure Time: _1100_. One visitor will be allowed to accompany the patient into the hospital. The visitor will be instructed to remain with patient at all times or leave the building. We will allow the visitor to come back to the postoperative area when patient is ready. You and your visitor will be asked a series of questions to screen for COVID 19 for your protection. A mask is required within the hospital. Patients are to have no food or drink 6 hours prior to procedure time Driving will be restricted after the procedure, you must have a person to drive you home. Labs will be drawn in preop area and once reviewed, you will be taken to radiology area for procedure. When the procedure is completed, you will be taken to outpatient where you will be monitored for several hours. You may have one visitor in this area. Other than holding anti-coagulants, patient may take other medication(s) as scheduled. Prior to your appointment date patients are instructed to hold anti-coagulants after discussing with ordering provider to stop. If unable to discontinue anti-coagulants please notify radiologist. No aspirin or warfarin (Coumadin) for 7 days prior to the procedure. No clopidogrel (Plavix), ticagrelor (Brilinta), prasugrel (Effient) or dabigatran (Pradaxa) for 5 days prior to the procedure. No rivaroxaban (Xarelto), apixaban (Eliquis), dipyridamole (Aggrenox or Persantine) or cilostazol (Pletal) for 2 days prior to the procedure. Medications to discontinue per physician: __Stopped aspirin [id number] Please leave all valuables, including medications, at home the day of procedure. The hospital will not accept responsibility for valuables. Wear comfortable, loose fitting clothing. Follow any additional instructions given to you from ordering provider. Telephone instructions given to ___Patient and asked if any additional questions and then verbalized understanding. Patient advised to call scheduling provider office or registration scheduling [phone] if any additional questions.
[2021-09-27] VITALS (11 sets, daily range): BP systolic 104–134; BP diastolic 61–82; PULSE 76–101; RESP 14–18; TEMP 36.8; O2SAT 95–100
--- NOTE | ~2021-09-27 | XR_ITS ---
EXAMINATION: XR chest 1V portable DATE: 09/27/2021 12:29 INDICATION: Left lung mass status post percutaneous biopsy. TECHNIQUE: A single frontal view of the chest was obtained. COMPARISON: Chest single view at 11:26 AM FINDINGS: There is a mass in left midlung zone. There is left hilar and mediastinal lymphadenopathy. No pleural effusion or pneumothorax. The heart size is normal. IMPRESSION: 1. Mass in left midlung zone, which may be infection or malignancy. 2. Left hilar and mediastinal lymphadenopathy. Reviewed, dictated and finalized at location A.
--- NOTE | ~2021-09-27 | CT_ITS ---
EXAMINATION: CT biopsy lung w/imaging DATE: 09/27/2021 11:36 INDICATION: Left lung mass. TECHNIQUE: The procedure including the risks, benefits, and alternatives and possibility of chest tub e placement were discussed with the patient. Risks discussed included infection, hemorrhage, approxim ately 1/3 risk of pneumothorax, approximately 1/10 risk of pneumothorax severe enough to warrant ches t tube placement, and rarely . The patient understood the risks and agreed to proceed. The patie nt was placed right lateral decubitus. The skin overlying the left lung was prepped and draped in st erile fashion. Anesthetic was administered with 1% lidocaine subcutaneously. A 19 gauge outer needl e was advanced under CT guidance to the lesion of interest. A 20 gauge core biopsy needle was then us ed to obtain 3 core biopsy specimens. The needle was removed and the entry site was cleaned and dress ed. The mA was adjusted according to patient size. Iterative reconstruction technique was employed. T he dose-length product was 140.05 mGy-cm. There were no immediate complications. FINDINGS: CT images demonstrate the outer needle tip in a mass involving left upper lobe and left low er lobe. IMPRESSION: 1. CT-guided core needle biopsy of a left lung mass. Reviewed, dictated and finalized at location A.
--- NOTE | ~2021-09-27 | XR_ITS ---
EXAMINATION: XR chest 1V portable DATE: 09/27/2021 14:26 INDICATION: Left lung mass status post percutaneous biopsy. TECHNIQUE: A single frontal view of the chest was obtained. COMPARISON: Chest single view at 12:27 PM FINDINGS: There is a mass in left midlung zone. There is left hilar and mediastinal lymphadenopathy. No pleural effusion or pneumothorax. The heart size is normal. IMPRESSION: 1. Mass in left midlung zone, which may be infection or malignancy. 2. Left hilar and mediastinal lymphadenopathy. Reviewed, dictated and finalized at location A.
--- NOTE | ~2021-09-27 | XR_ITS ---
EXAMINATION: XR chest 1V DATE: 09/27/2021 11:27 INDICATION: Left lung mass status post percutaneous biopsy. TECHNIQUE: A single frontal view of the chest was obtained. COMPARISON: Chest 2 views 05/11/2021 FINDINGS: There is a mass in left midlung zone. There is left hilar and mediastinal lymphadenopathy. No pleural effusion or pneumothorax. The heart size is normal. IMPRESSION: 1. Mass in left midlung zone, which may be infection or malignancy. 2. Left hilar and mediastinal lymphadenopathy. Reviewed, dictated and finalized at location A.
[2021-09-27 10:01] LABS: Mean Platelet Volume 9.8 fl (7.4-10.4); Platelet Count Result 370 k/mm3 (150-375)
[2021-09-27 10:19] LABS: INR 0.9; Prothrombin Time 12.1 Seconds (11.1-14.7)
--- NOTE | 2021-09-27 14:29 | SUR.PHASEII ---
1430: Call received from Dr. Sharri mayer to discharge patient.
== END 2021-09-27 14:45 | disposition home or self-care (01) ==
PROVIDERS: PCP Family Medicine; Referring Provider Internal Medicine Pulmonary Disease; Visit Provider Radiology Diagnostic Radiology
PROC: BB24ZZZ Computerized Tomography (CT Scan) of Bilateral Lungs (ICD-10-PCS; CPT 32408; principal; 2021-09-27 11:00)
DX: J98.4 Other disorders of lung (principal)
CPT/HCPCS: 32408; 36415; 71045; 85049; 85610; 88305; 88342

== ENCOUNTER 2021-10-05 09:19 | Outpatient (CLI) | payer MEDICARE, MEDICAID, SELFPAY ==
--- NOTE | 2021-10-05 13:27 | P.PCNPFT_ITS ---
PFT Procedure Performed PFT Procedure Performed Spirometry with Pre/Post Bronchodilator Plethysmography (Lung Vol) Diffusing Cap (DLCO) Flow Vol Loop PFT Interpretation This is a pulmonary function test with pre and post-bronchodilator spirometry, plethysmography and diffusing capacity. The test was performed and results interpreted in accordance with the 2019 and 2005 ATS/ERS Task Force guidelines respectively using the Global Lung Function Initiative-2012 reference equations. Patient demonstrated good effort and cooperation. Reproducibility criteria were met. The quality of the pre bronchodilator spirometry maneuver was Grade B and post bronchodilator spirometry maneuver was Grade A. Findings: Spirometry: There is decreased maximal expiratory airflow at all lung volumes with concave expiratory flow tracing. The pre bronchodilator FVC is 2.93 L, 104% predicted. The pre bronchodilator FEV1 is 1.60 L, 73% predicted. The pre bronchodilator FEV1: FVC ratio is 55%. The post bronchodilator FVC is 3.00 L, representing a 2% increase. The post bronchodilator FEV1 is 1.70 L, representing a 7% increase. The post bronchodilator FEV1: FVC ratio is 57%. Plethysmography: The total lung capacity is 5.71 L, 117% predicted. The functional residual capacity is 3.59 L, 129% predicted. The residual volume is 2.78 L, 133% predicted. Diffusing capacity: The diffusing capacity unadjusted for hemoglobin and carboxyhemoglobin is 14.5, 71% predicted. The diffusing capacity adjusted for a lveolar volume is 3.38, 77% predicted. Impression: There is a mild obstructive abnormality without significant improvement after inhaling a single dose of albuterol. The lung volumes are normal. The diffusing capacity is normal. There are no prior studies for comparison
== END 2021-10-05 09:20 | disposition home or self-care (01) ==
LOC: ANHPFT 09:23
PROVIDERS: PCP Family Medicine; Visit Provider Internal Medicine Pulmonary Disease
DX: R06.00 Dyspnea, unspecified (principal); R94.2 Abnormal results of pulmonary function studies
CPT/HCPCS: 94060; 94726; 94729

== ENCOUNTER 2021-10-15 15:21 | Outpatient (CLI) | payer MEDICARE, MEDICAID, SELFPAY ==
[2021-10-15 15:35] LABS: Basophils Percent Auto 0.4 % (0.2-1.2); Eosinophils Absolute Auto 0.2 K/mm3 (0-0.3); Eosinophils Percent Auto 1.9 % (0-4.4); Hematocrit 37.9 % (37.0-47.0); Hemoglobin 12.4 g/dL (12.0-15.0); Immature Granulocyte Absolute 0.05 K/mm3 (0.00-0.031); Immature Granulocyte Percent A 0.5 % (0-0.5); Lymphocytes Absolute Auto 2.65 K/mm3 (0.9-3.2); Lymphocytes Percent Auto 27.2 % (18.3-44.2); Mean Corpuscular HGB Conc 32.7 g/dl (32-36); Mean Corpuscular Hemoglobin 28.8 pg (26-34); Mean Corpuscular Volume 88.1 fl (80-100); Mean Platelet Volume 9.6 fl (7.4-10.4); Monocytes Absolute Auto 1.3 K/mm3 (0.1-0.6); Monocytes Percent Auto 13.6 % (2.6-8.5); Neutrophils Absolute Auto 5.5 K/mm3 (1.3-6.7); Neutrophils Percent Auto 56.4 % (45.5-73.1); Platelet Count Result 478 k/mm3 (150-375); Red Cell Distribution Width 12.3 % (11.5-14.5); White Blood Count 9.8 K/mm3 (4.5-10.0)
[2021-10-15 16:08] LABS: Alanine Aminotransferase 15 U/L (6-35); Albumin Level 4.2 g/dL (3.5-5.1); Alkaline Phosphatase 107 U/L (38-126); Anion Gap 9 mmol/L (8-16); Aspartate Amino Transferase 31 U/L (14-36); Bilirubin,Total 0.3 mg/dL (0.2-1.3); Blood Urea Nitrogen 7 mg/dL (7-17); Calcium 9.2 mg/dL (8.4-10.2); Carbon Dioxide 27 mmol/L (22-30); Chloride 97 mmol/L (98-107); Estimated Glomerular Filt Rate > 60; Glucose 94 mg/dL (65-110); Potassium 4.9 mmol/L (3.4-5.0); Sodium 133 mmol/L (137-145)
== END 2021-10-15 15:22 | disposition home or self-care (01) ==
LOC: ANHLAB 15:22
PROVIDERS: PCP Family Medicine; Visit Provider Internal Medicine Hematology & Oncology
DX: C34.92 Malignant neoplasm of unspecified part of left bronchus or lung (principal)
CPT/HCPCS: 36415; 80053; 85025

== ENCOUNTER 2021-10-19 11:58 | Outpatient (CLI) | payer MEDICARE, MEDICAID, SELFPAY ==
--- NOTE | ~2021-10-19 | PE_ITS ---
EXAMINATION: PET skull to mid thigh DATE: 10/19/2021 14:04 INDICATION: Malignant neoplasm of unspecified part of lung. TECHNIQUE: Blood glucose level was 93 mg/dL. 10.513 mCi of 18-fluorodeoxyglucose (18-FDG) was adminis tered i.v. Low dose computed tomography (CT) images were acquired from the base of the brain to the p roximal thighs for attenuation correction and anatomic localization. Automated exposure control was e mployed. Dose-length product (DLP) was 394 mGy-cm. Positron emission tomography (PET) images were acq uired in the same distribution. COMPARISON: Chest CT 09/06/2021, 05/14/19 FINDINGS: Head/neck: There is increased activity in the oral cavity and pharynx and glottis without abnormal CT correlate, likely physiologic. There are no pathologically enlarged lymph nodes. Chest: There is mild scarring at the lung apices. There is mild emphysema. There is a 5.4 x 5.9 cm ca vitary mass in left lung lower lobe with maximum SUV of 14.9. There is mild atelectasis in the lungs. There is a 14 mm part-solid nodule in right lower lobe without increased activity. Calcified left hi lar and mediastinal lymph nodes are consistent with old granulomatous disease. There is noncalcified left hilar and mediastinal lymphadenopathy with increased activity. For example, a 2.0 x 1.5 cm node in the aorticopulmonary window node demonstrates maximum SUV of 6.3. The heart size is normal. There are coronary artery calcifications. No pericardial effusion. There is mild thoracic spondylosis. Abdomen/pelvis/proximal thighs: The liver, gallbladder, pancreas, and adrenal glands are normal. Calc ifications in the spleen are consistent with old granulomatous disease. There is a 5.5 cm cyst in rig ht kidney. Left kidney is normal. There are no dilated loops of bowel. There are no pathologically en larged lymph nodes. There is no free intraperitoneal fluid. There is increased activity inferior to t he right ischial tuberosity, consistent with inflammation. There is mild lumbar spondylosis. IMPRESSION: 1. Cavitary mass in left lung lower lobe with increased activity, consistent with non-small cell lung cancer. 2. Left hilar and mediastinal lymphadenopathy with increased activity, consistent with metastatic dis ease. 3. 14 mm part-solid nodule without increased activity in right lower lobe, increased from 11 mm on 05/14/19, suspicious for primary bronchogenic carcinoma. Reviewed, dictated and finalized at location A. IMPRESSION: 1. Cavitary mass in left lung lower lobe with increased activity, consistent wi th non-small cell lung cancer. 2. Left hilar and mediastinal lymphadenopathy with increased activity, consiste nt with metastatic disease. 3. 14 mm part-solid nodule without increased activity in right lower lobe, incr eased from 11 mm on 05/14/19, suspicious for primary bronchogenic carcinoma.
[2021-10-19 12:23] LABS: Glucose Point of Care 93 mg/dl (65-105)
== END 2021-10-19 11:59 | disposition home or self-care (01) ==
PROVIDERS: PCP Family Medicine; Visit Provider Internal Medicine Pulmonary Disease
DX: C34.90 Malignant neoplasm of unspecified part of unspecified bronchus or lung (principal); J98.4 Other disorders of lung; R91.1 Solitary pulmonary nodule; R59.0 Localized enlarged lymph nodes
CPT/HCPCS: 78815; A9552

== ENCOUNTER 2021-10-24 07:29 | Outpatient (CLI) | payer MEDICARE, MEDICAID, SELFPAY ==
--- NOTE | ~2021-10-24 | MR_ITS ---
EXAMINATION: MR brain/brain stem wo/w con DATE: 10/24/2021 08:42 INDICATION: Non-small cell lung cancer. TECHNIQUE: Magnetic resonance imaging (MRI) of the brain and brainstem was performed without and with 11 mL MultiHance intravenous contrast. COMPARISON: Brain MRI 07/20/2015 FINDINGS: There are scattered areas of nonspecific increased T2-weighted signal intensity in the cere bral and cerebellar white matter, which is within normal limits for the patient's age. There are area s of increased T2-weighted signal intensity in the adarsh. There is no intracranial hemorrhage, acute i nfarction, or abnormal intracranial mass lesion. The ventricles are normal in size. There is mild muc osal thickening in the ethmoid sinuses. The orbits are normal. The mastoid air cells are normal. IMPRESSION: 1. No evidence of metastatic disease. 2. Pontine disease, worsened from 07/21/2015, which likely represents chronic small vessel ischemic di sease. Reviewed, dictated and finalized at location A. IMPRESSION: 1. No evidence of metastatic disease. 2. Pontine disease, worsened from 07/21/2015, which likely represents chronic sm all vessel ischemic disease.
== END 2021-10-24 07:30 | disposition home or self-care (01) ==
PROVIDERS: PCP Family Medicine; Visit Provider Internal Medicine Hematology & Oncology
DX: C34.92 Malignant neoplasm of unspecified part of left bronchus or lung (principal)
CPT/HCPCS: 70553; A9577

== ENCOUNTER 2021-10-25 00:59 | Day surgery (SDC) | payer MEDICARE, MEDICAID, SELFPAY ==
--- NOTE | 2021-10-19 14:34 | PC.NURSE ---
Report to the Outpatient Waiting Room, entrance under the green pavilion located off [address], at time __30 on date __10/25/21 . OR Time: . - You and your visitor will be asked a series of questions to screen for COVID 19 for your protection. - Only one visitor is allowed at this time. - The patient visitor is requested to leave or wait in car when not with patient. - A mask is required within the hospital. Patients may have clear liquids (water, carbonated beverages, clear teas, apple juice) until 3 hours prior to surgery with a maximum of 20 ounces. - No food from midnight until time of surgery - Infants may have breast milk until 4 hours before surgery, infant formula 6 hours prior to surgery. - Children will be allowed to drink immediately following surgery. If applicable, please bring a bottle or sippy cup to assist with drinking. Juice, water, soda, and popsicles are readily available. For infants on formula, please bring formula the day of surgery. Pacifiers are allowed. Take the following medications with a SIP of water the morning of surgery: __AMOLDIPINE,DULOXETINE,ANORO INHALER Medications to discontinue per physician VITAMIN D2 3 DAYS PRE OP Date to take last dose___10/17/21 Please no make-up, nail citizen of [place], hairspray, perfume, deodorant, or body powder the day of surgery. No jewelry (including any body piercings) or valuables the day of surgery, leave them at home. Please take a shower or bath the night before, or the morning of, surgery with an antibacterial soap. Wear comfortable, loose fitting clothing. Children are encouraged to wear pajamas. - Jewelry must be removed prior to entering the operating room. Rings and piercings that are not removed may be cut off. - The hospital will not accept responsibility for valuables. - Please leave all valuables, including medications, at home the day of surgery. If you are going home after surgery, a licensed medical van driver must drive you home. - NO public transportation without another adult. - We recommend that an adult stay with you for 24 hours following discharge. - We also recommend that you do not drive, make important decision, drink alcoholic beverages, or take any drugs that were not prescribed by your health care provider for at least 24 hours after your discharge time. For Pediatric surgeries, we recommend two adults accompany the child home (only one inside the building at this time). Follow any additional instructions given to you from your surgeon. If you or anyone in your household have experienced Covid symptoms in the past week, please notify your surgeon or the nurse liaison at the phone number below for possible testing. Telephone instructions given to __PATIENT and asked if any additional questions and then verbalized understanding. Patient advised to call surgeon office or pre surgery nurse liaison [phone] if any additional questions.
[2021-10-19 14:42] VITALS: BMI 22.3
--- NOTE | 2021-10-24 22:16 | PM.HPGS ---
History of Present Illness History of Present Illness Consent: Risks, benefits, and alternatives of placement of a Geni-cath have been discussed and questions answered. Patient agrees to proceed with procedure. Chief complaint: non small cell cancer left lung Narrative: Zena Stone is a 66 year old White female who has a biopsy proven left lung cancer. She is a long time smoker and denies SOB, but does have an occasional cough. States she is not bringing up a lot of phlegm. She is planning treatment with Dr. Kelley and Dr. Lou for this problem and needs adequate venous access. This cancer was discovered in follow-up after the patient presented to the hospital in April of this year with a left lower lung abscess. Abnormality did not completely clear with CT scan and she was therefore referred feel referred for a 2nd bronchoscopy and EBUS. 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 Review of Systems Constitutional: Constitutional: Reports no additional constitutional complaints, Reports fatigue and Denies malaise Eyes: Eyes: Denies change in vision and Denies loss of vision ENT: Reports Normal hearing present, Denies change in voice, Denies dizziness, Denies hoarseness and Denies sore throat Cardiovascular: Cardiovascular: Denies chest pain, Denies leg edema and Denies dyspnea Comments: Hx. of HTN and hyperlipidemia Respiratory: Respiratory: Denies dyspnea and Denies wheezing Gastrointestinal: Gastrointestinal: Denies hematochezia, Denies change in bowel habits and Denies heartburn Comments: Hx. of GERD Genitourinary: Genitourinary: Denies urinary frequency and Denies urinary incontinence Musculoskeletal: Comments: HX of shoulder pain and surgery Neurologic: Reports Normal hearing present, Denies confusion, Denies dizziness, Denies loss of vision, Denies memory loss and Denies seizure-like activity Comments: Patient states that her TIA was more than 4 years ago. It was never discovered to for sure why she had it. At that point she did start a baby aspirin once a day and continues that. Also started on the statin drug around that time for her hyperlipidemia. Psychiatric: Psychiatric: Denies confusion, Denies depression and Denies memory loss Comments: Hx. of anxiety and depression Endocrine: Endocrine: Denies cold intolerance and Reports fatigue Hematologic/Lymphatic: Hematologic/Lymphatic: Denies easy bleeding and Denies easy bruising Allergic/Immunologic: Allergic/Immunologic: Denies wheezing PMFSH Past Medical History Medical History Arthritis COVID-19 (02/2021) Depression Gastroesophageal reflux disease History of rectal polyps Hyperlipidemia Hypertension Tobacco abuse Transient ischemic attack (07/2015) Surgical History Surgical History History of colonoscopy with polypectomy History of repair of left rotator cuff History of tubal ligation Family History Family History Mother Lung cancer Father Hypertension Congestive heart failure Renal failure Grandparent Carcinoma of colon Sibling Acute myocardial infarction Social History Social History Social History: Surrogate decision maker: [place], . Code status: Full code. Years smoked: 45 Smoking status: Former smoker Tobacco type: cigarettes Second hand tobacco smoke exposure: No Additional smoking assessment comments: STATES SMOKES 2-3 CIGARETTES A DAY BUT DOESN'T INHALE Alcohol intake: never Alcohol use details: 2 DRINKS PER MONTH Substance use: never Substance use type: does not use Living arrangements: with family Additional living arrangements comments: The patient lives with her in [place]. Additional occupation/education comments
--- NOTE | ~2021-10-25 | XR_ITS ---
EXAMINATION: XR chest port-a-cath/central DATE: 10/25/2021 09:37 INDICATION: Port catheter placement TECHNIQUE: frontal view of the chest was obtained. COMPARISON: Chest radiograph dated 09/27/2021 FINDINGS: Right internal jugular central venous port catheter with distal tip at the midsuperior vena cava. No pneumothorax or pleural effusion. 7 cm left lower lobe cavitary mass with lymphadenopathy at the left hilum and AP window consistent with likely metastatic lung cancer. Subtle nodular opacity lateral ri ght lower lobe also suspicious for primary bronchogenic carcinomas discussed on prior PET/CT dated 12/2021. Heart size is normal. IMPRESSION: 1. Right internal jugular central venous port catheter with distal tip at the level of the mid superi or vena cava with no pneumothorax or other acute cardiopulmonary disease. 2. 7 cm left lower lobe mass with left hilar and mediastinal lymphadenopathy consistent with likely m etastatic lung cancer. 3. Small subtle nodular opacity at the right lower lobe suspicious for additional primary bronchogeni c carcinoma. See prior PET/CT report dated 10/19/2021 for further detail. Reviewed, dictated and finalized at location A. IMPRESSION: 1. Right internal jugular central venous port catheter with distal tip at the l evel of the mid superior vena cava with no pneumothorax or other acute cardiopu lmonary disease. 2. 7 cm left lower lobe mass with left hilar and mediastinal lymphadenopathy co nsistent with likely metastatic lung cancer. 3. Small subtle nodular opacity at the right lower lobe suspicious for addition al primary bronchogenic carcinoma. See prior PET/CT report dated 10/19/2021 for f urther detail.
--- NOTE | ~2021-10-25 | XR_ITS ---
EXAMINATION: XR fl guide central line place DATE: 10/25/2021 09:19 INDICATION: Port catheter insertion TECHNIQUE: 2 fluoroscopic images of the central chest were obtained during procedure performed by Dr. Hatch. Radiologist was not present for the imaging or procedure. The amount of fluoroscopy time us ed during this procedure was 3.3 minutes. COMPARISON: 09/27/21 FINDINGS: Right internal jugular central venous catheter with distal tip at the level of the midsuperior vena c ebony. Lap sponge markers project over the right supraclavicular region. No evident pneumothorax. IMPRESSION: Fluoroscopy utilized during placement of a right internal jugular central venous catheter with distal tip at the midsuperior vena cava. See procedure note for further detail. Reviewed, dictated and finalized at location A. IMPRESSION: Fluoroscopy utilized during placement of a right internal jugular central venou s catheter with distal tip at the midsuperior vena cava. See procedure note for further detail.
[2021-10-25 07:44] VITALS: BP 113/76; PULSE 104; RESP 18; TEMP 37.4; O2SAT 99
[2021-10-25] MEDS: LACTATED RINGERS 1,000 ML 30 ML IV CONT (07:55)
--- NOTE | 2021-10-25 07:56 | WPDHPUPDATE1 ---
History and Physical Update Update Date/Time: 10/25/21 07:56 History and Physical has been reviewed, including an updated exam of the patient. There are NO changes in the patient's condition. Risks, benefits, and alternatives placement of a Port-A-Cath have been discussed and questions answered. Patient agrees to proceed with procedure.
--- NOTE | 2021-10-25 08:07 | WPDANESEPPF ---
Anes - Initial Pre Proc Eval Procedure: Operation Date: 10/25/21 09:30 Proposed Procedures p Insertion Geni Cath - Sunny Hatch MD Date/Time: 10/25/21 08:07 Surgeon: Sunny Hatch MD Pre Op Diagnosis: non small cell cancer left lung Patient Data Age: 66 Gender: F Height: 1.6 m Weight: 57.2 kg Last Vital Signs Temp 37.4 C 10/25/21 07:44 Pulse 104 H 10/25/21 07:44 Resp 18 10/25/21 07:44 BP 113/76 10/25/21 07:44 Pulse Ox 99 10/25/21 07:44 O2 Del Method Room Air 10/25/21 07:44 Allergies Allergy/AdvReac Type Severity Reaction Status Date / Time No Known Allergies Allergy Verified 10/25/21 07:33 Home Medications Medication Instructions Recorded Confirmed Type aspirin 81 mg chewable tablet 81 mg PO DAILY 05/14/19 10/25/21 History alprazolam 0.5 mg tablet 0.5 mg PO BID PRN anxiety #20 tabs 11/19/20 10/19/21 Rx amlodipine 5 mg tablet See Rx Instructions .Route 04/02/21 10/25/21 Rx .COMPLEX #90 tabs esomeprazole magnesium 20 mg See Rx Instructions .Route 04/02/21 10/25/21 Rx capsule,delayed release .COMPLEX #90 caps ergocalciferol (vitamin D2) 1,250 1,250 mcg PO WEEKLY #12 caps 07/07/21 10/25/21 Rx mcg (50,000 unit) capsule simvastatin 20 mg tablet See Rx Instructions .Route 07/07/21 10/25/21 Rx .COMPLEX #90 tabs albuterol sulfate 90 mcg/actuation 1 inh inhalation PRN PRN shortness 10/19/21 10/19/21 History aerosol inhaler (ProAir HFA) of breath or wheezing duloxetine 30 mg capsule,delayed 60 mg PO DAILY 10/19/21 10/25/21 History release umeclidinium 62.5 mcg-vilanterol 1 ea inhalation DAILY 10/19/21 10/25/21 History 25 mcg/actuation powdr for inhalation (Anoro Ellipta) Patient hx anesthesia problems: none Family hx anesthesia problems: none Results Review: All pre-operative results and documents have been reviewed as part of the pre-operative evaluation. [facility] Past Medical History Medical History Arthritis COVID-19 (02/2021) Depression Gastroesophageal reflux disease History of rectal polyps Hyperlipidemia Hypertension Tobacco abuse Transient ischemic attack (07/2015) Surgical History Surgical History History of colonoscopy with polypectomy History of repair of left rotator cuff History of tubal ligation Family History Family History Mother Lung cancer Father Hypertension Congestive heart failure Renal failure Grandparent Carcinoma of colon Sibling Acute myocardial infarction Social History Social History Social History: Surrogate decision maker: [place], . Code status: Full code. Years smoked: 45 Smoking status: Former smoker Tobacco type: cigarettes Second hand tobacco smoke exposure: No Additional smoking assessment comments: STATES SMOKES 2-3 CIGARETTES A DAY BUT DOESN'T INHALE Alcohol intake: never Alcohol use details: 2 DRINKS PER MONTH Substance use: never Substance use type: does not use Living arrangements: with family Additional living arrangements comments: The patient lives with her in [place]. Additional occupation/education comments: Retired. Spiritual care concerns: No Anes - Eval Final PreProcedure Day of Procedure 10/25/21 08:07 Patient weight: normal Heart: regular rate and rhythm Lungs: clear to auscultation Airway: Mallampati scale class III Neurological: alert and oriented Last oral intake: >/= 8 hours ASA classification: III Emergent: no Anesthetic plan: proceed Anesthesia type and monitoring: general GIVS and standard monitoring Results Review: All pre-operative results and documents have been reviewed as part of the pre-operative evaluation. Informed Consent: The patient's anesthetic plan and its attendant risks a
[2021-10-25] MEDS: KETOROLAC 15 MG/ML VIAL (*BKC) IV PUSH (08:10)
[2021-10-25] MEDS: ceFAZolin 2 GM/D5W 50 ML 2 GM/50 ML BAG IVPB (08:19)
[2021-10-25 08:27] LABS: Partial Thromboplastin Time 28.3 SECONDS (22.3-36.8)
[2021-10-25] MEDS: HEPARIN SODIUM 5,000 UNITS/ML VIAL 5000 UNITS IRRIGATION (08:42)
[2021-10-25] MEDS: BUPIVACAINE/EPINEPHRINE 0.25% 50 ML VIAL 20 ML INFILTRATE (09:16)
[2021-10-25 09:26] VITALS: BP 95/57; PULSE 91; RESP 16; O2SAT 96
--- NOTE | 2021-10-25 09:40 | W.PM.PROC2 ---
Procedure Note - Detailed Date of Procedure 10/25/21 Pre-op Diagnosis non small cell cancer left lung Post-op Diagnosis Same Procedure Performed 1. Placement of Geni-cath. 2. Use of US for vascular access site selection and visualization of needle access to vein. Surgeon Sunny Hatch MD Assistant Manager Retail Josefa [email or web address].OR staff physical therapy assistant Anesthesia Local (with 0.5% Marcaine with epinepherine) and Other (GIVS) Indications Patient has squamous cell carcinoma of the left lung. Plans are being made for combination chemo and radiation. Patient needs long-term vascular access for her therapy. Findings Normal vascular anatomy in the right neck. Right internal jugular was well lateral and anterior to the internal carotid artery. Description of Procedure Patient was seen and marked in the pre-op area prior to coming to the OR. Patient was brought to the operating room. Patient was placed supine on the operating table and general IV sedation was induced. The nurse sandwich counter attendant provided And continuous monitoring, oxygen, and IV sedation or general anesthesia with IV sedation as was appropriate for the patient's condition. See anesthesia notes). Patient's head was carefully turned to the left side while in the supine position and the patient's entire neck and anterior chest on both sides was prepped and draped in the usual sterile fashion. Following this the appropriate time-out was completed confirming procedure and patient. We confirmed that all the needed equipment was present in the room including the vascular ultrasound probe in machine. Following this the ultrasound probe was draped into the field and using the probe we carefully identified the carotid artery and jugular vein on the right neck. I then saved an image of the vascular anatomy of the neck, which documented the selected vessels patency and transferred it from the ultrasound machine to the [employer] chart. I marked the skin directly over the right internal jugular vein. I then used an 11 blade knife to make a small jerry in the skin. Following this, using the continuous ultrasound guidance, a Cook needle was placed through the skin incision and on into this vein. I then was able to draw back good dark blood. Once this was completed a guidewire using a J-tip was advanced through the needle and then the needle and the guidewire cover were withdrawn. C-arm fluoroscopy was used to confirm that the guidewire was nicely in the central venous system. It should be mentioned that the guidewire did sign of seemed to curl some and I needed several minutes of fluoro to adjust the wire such that it was nicely in the central venous system. I also used the C-arm as I slid the dilator and sheath over the guidewire to be sure that was going into the central venous system nicely. This was confirmed with the C - arm. I preceded on by making the pocket for the port on the patient's anterior right chest approximately 3 centimeters below the clavicle overlying the chest wall. Local anesthetic was infiltrated into the skin where there was a transverse incision marked out. Incision was made and we made a pocket inferior to the incision with just a little dissection superior. The Bard low-profile port was tried in the pocket and seemed to fit well. Following this the catheter which had been placed on a tunneling device was tunneled from the port site on the anterior right chest up to the right neck where the small incision had been made slightly larger with an #11 blade knife. Then the catheter was pulled through so that we would have 15 centimeters to put into the central venous system once the dilation took place. Following this we placed the dilator and sheath over the guidewire in the jugular vein and carefully dilated the tract into the central venous system. See note above regarding fluoroscopy use at this point. The guidewire and dilator were then removed, carefully covering the end of the sheath to prevent air embolu
[2021-10-25 09:53] VITALS: BP 128/69; PULSE 128; RESP 16; O2SAT 97
--- NOTE | 2021-10-25 09:53 | SUR.PHASEII ---
NO PNEUMOTHORAX PER CXR REPORT.
== END 2021-10-25 10:11 | disposition home or self-care (01) ==
PROVIDERS: PCP Family Medicine; Visit Provider Surgery
PROC: (CPT 36561; principal; 2021-10-25 09:30)
DX: C34.90 Malignant neoplasm of unspecified part of unspecified bronchus or lung (principal); J44.9 Chronic obstructive pulmonary disease, unspecified; E78.5 Hyperlipidemia, unspecified; I10 Essential (primary) hypertension; K21.9 Gastro-esophageal reflux disease without esophagitis; F32.9 Major depressive disorder, single episode, unspecified; M19.90 Unspecified osteoarthritis, unspecified site; G45.9 Transient cerebral ischemic attack, unspecified; Z79.82 Long term (current) use of aspirin; Z79.51 Long term (current) use of inhaled steroids; I25.2 Old myocardial infarction; Z86.16 Personal history of COVID-19; F32.A Depression, unspecified; Z87.891 Personal history of nicotine dependence
CPT/HCPCS: 36561; 36415; 77001; 85730; C1788; J0690; J1644; J1885; J2250; J2704; J3010; J7030; J7120

== ENCOUNTER 2021-11-09 12:41 | Outpatient (CLI) | payer MEDICARE, MEDICAID, SELFPAY ==
--- NOTE | ~2021-11-09 | CT_ITS ---
EXAMINATION: CT diagnostic chest w con DATE: 11/09/2021 13:20 INDICATION: Malignant neoplasm TECHNIQUE: Computed tomography (CT) of the chest was performed with 75 CC Omnipaque 350 intravenous c ontrast. Automated exposure control and iterative reconstruction technique were employed. Exam dose: 139.29 mGy-cm total exam DLP. COMPARISON: 10/25/2021 portable AP chest 10/29/2021 PET/CT scan FINDINGS: Right internal jugular Port-A-Cath tip in lower superior vena cava. Normal heart size. There is aortic and great vessel and coronary artery calcification. No thoracic ao rtic aneurysm or dissection. No pericardial effusion. No pleural effusion. Approximately 5.2 x 6 cm heterogeneous relatively low-attenuation cavitary mass of the anterolateral aspect of the left lower lobe is noted, with left hilar and aortopulmonary window and subcarinal lymp hadenopathy. Approximately 9 x 12.6 mm precarinal and 8 x 9.7 mm right paratracheal lymph nodes are n oted. Differential diagnosis includes malignant or infectious process. There is an irregular stellate 1.4 cm mass lesion in the right lower lobe suspicious for malignancy. Emphysematous changes of the lungs. Left hilar and subcarinal calcifications which may be due to old granulomatous disease or treated mal ignancy. No adrenal mass lesion is detected. Roughly 4 x 6 cm upper pole right renal cyst. No suspicious osteolytic or osteoblastic lesions are noted. IMPRESSION: Cavitary left lower lobe mass and left hilar and mediastinal lymphadenopathy, likely due to malignancy Probable 14 mm irregular malignant lesion of the right lower lobe COPD Reviewed, dictated and finalized at [facility]. Reviewed, dictated and finalized at location B. IMPRESSION: Cavitary left lower lobe mass and left hilar and mediastinal lymph adenopathy, likely due to malignancy Probable 14 mm irregular malignant lesion of the right lower lobe COPD
== END 2021-11-09 12:42 | disposition home or self-care (01) ==
PROVIDERS: PCP Family Medicine; Visit Provider Radiology Radiation Oncology
DX: C34.90 Malignant neoplasm of unspecified part of unspecified bronchus or lung (principal); J44.9 Chronic obstructive pulmonary disease, unspecified
CPT/HCPCS: 71260; 77386; Q9967

== ENCOUNTER 2022-02-01 08:55 | Outpatient (CLI) | payer MEDICARE, MEDICAID, SELFPAY ==
--- NOTE | ~2022-02-01 | CT_ITS ---
EXAMINATION:CT diagnostic chest w con DATE: 02/01/2022 09:27 INDICATION: Non-small cell cancer of lung. TECHNIQUE: Computed tomography (CT) of the chest was performed with 75 mL Omnipaque 350 intravenous c ontrast. Automated exposure control and iterative reconstruction technique were employed. The dose-le ngth product (DLP) was 153.25 mGy-cm. COMPARISON: Chest CT 11/09/2021, 05/14/19 FINDINGS: There is mild emphysema. There is mild scarring at the lung apices. There is an irregular 1 0 mm nodule in right lower lobe, stable from 05/14/19, likely benign. There is a cavitary mass in left lower lobe measuring 4.1 x 2.2 cm, improved from 6.4 x 4.6 cm. There is left hilar and mediastinal ly mphadenopathy. For example, a 2.4 x 1.5 cm node in the aorticopulmonary window previously measured 3. 0 x 2.1 cm. Calcified left hilar and mediastinal lymph nodes are consistent with old granulomatous di sease. There is a right internal jugular port with tip at superior cavoatrial junction. There is a 6. 4 cm cyst in right kidney. There is mild thoracic spondylosis. IMPRESSION: 1. Improved cavitary mass in left lung lower lobe, consistent with primary bronchogenic carcinoma. 2. Improved left hilar and mediastinal lymphadenopathy, consistent with metastatic disease. Reviewed, dictated and finalized at location A. EL INSTRUCTOR IMPRESSION: 1. Improved cavitary mass in left lung lower lobe, consistent with primary bron chogenic carcinoma. 2. Improved left hilar and mediastinal lymphadenopathy, consistent with metasta tic disease.
== END 2022-02-01 08:56 | disposition home or self-care (01) ==
PROVIDERS: PCP Family Medicine; Visit Provider Internal Medicine Hematology & Oncology
DX: C34.92 Malignant neoplasm of unspecified part of left bronchus or lung (principal); R59.0 Localized enlarged lymph nodes
CPT/HCPCS: 71260; Q9967

== ENCOUNTER 2022-05-09 08:07 | Outpatient (CLI) | payer MEDICARE, MEDICAID, SELFPAY ==
--- NOTE | ~2022-05-09 | CT_ITS ---
EXAMINATION:CT diagnostic chest wo con DATE: 05/09/2022 08:31 INDICATION: Non-small cell lung cancer of left lung. TECHNIQUE: Computed tomography (CT) of the chest was performed without intravenous contrast. Automate d exposure control and iterative reconstruction technique were employed. The dose-length product (DLP ) was 149.75 mGy-cm. COMPARISON: Chest CT 02/01/2022, 05/14/19 FINDINGS: There is mild emphysema. There are greater than 30 scattered nodules in the lungs measuring up to 6 mm. There is mild scarring at the lung apices. There is a 16 mm irregular nodule in right lo wer lobe. There is a cavitary mass in left lung lower lobe measuring 3.7 x 2.1 cm, stable from 2021. Calcified left lung nodules and calcified left hilar and mediastinal lymph nodes are consistent with old granulomatous disease. There are enlarged left hilar and mediastinal lymph nodes with perip heral calcification. The heart size is normal. There are coronary artery calcifications. There is a s mall pericardial effusion. There is a right internal jugular port with tip at superior cavoatrial fab ction. Right brachycephalic vein and superior vena cava are small. There is a small sliding hiatal he rnia. There is a 6.1 cm cyst in right kidney. There is mild thoracic spondylosis. IMPRESSION: 1. Stable cavitary mass in left lung lower lobe, consistent with primary bronchogenic carcinoma. 2. Greater than 30 scattered nodules in the lungs measuring up to 6 mm, which are new, which may be m etastatic disease or less likely infection. 3. 16 mm irregular nodule in right lung lower lobe with worsening from 05/14/2019. This finding is susp icious for primary bronchogenic carcinoma. 4. Enlarged peripherally calcified left hilar and mediastinal lymph nodes, likely treated metastatic disease. Reviewed, dictated and finalized at location A. UARD LACE WEAVER IMPRESSION: 1. Stable cavitary mass in left lung lower lobe, consistent with primary bronch ogenic carcinoma. 2. Greater than 30 scattered nodules in the lungs measuring up to 6 mm, which a re new, which may be metastatic disease or less likely infection. 3. 16 mm irregular nodule in right lung lower lobe with worsening from 05/14/2019 . This finding is suspicious for primary bronchogenic carcinoma. 4. Enlarged peripherally calcified left hilar and mediastinal lymph nodes, like ly treated metastatic disease.
== END 2022-05-09 08:08 | disposition home or self-care (01) ==
PROVIDERS: PCP Family Medicine; Visit Provider Internal Medicine Hematology & Oncology
DX: C34.92 Malignant neoplasm of unspecified part of left bronchus or lung (principal); R91.8 Other nonspecific abnormal finding of lung field
CPT/HCPCS: 71250

== ENCOUNTER 2022-05-24 07:46 | Outpatient (CLI) | payer MEDICARE, MEDICAID, SELFPAY ==
--- NOTE | ~2022-05-24 | PE_ITS ---
EXAMINATION: PET skull to mid thigh DATE: 05/24/2022 10:10 INDICATION: Non-small cell cancer of the left lung. TECHNIQUE: Blood glucose level was 105 mg/dL. 9.041 mCi of 18-fluorodeoxyglucose (18-FDG) was adminis tered i.v. Low dose computed tomography (CT) images were acquired from the base of the brain to the p roximal thighs for attenuation correction and anatomic localization. Positron emission tomography (PE T) images were acquired in the same distribution beginning 55i minutes after injection. Images includ ing fused PET/CT images were reconstructed in axial, coronal, and sagittal planes. Automated exposure control technique was employed. The dose-length product was 481.20mGy-cm. COMPARISON: 10/19/2021 FINDINGS: Head/neck: There is symmetric increased activity in the oral cavity, palatine tonsils, parotid glands, submandi bular glands, laryngeal muscles and ocular muscles without CT correlate, likely physiologic. No patho logically enlarged cervical lymphadenopathy or suspicious foci of increased FDG uptake in the visuali zed head or neck. Chest: Mild emphysema. No significant change in a 1.5 cm part solid nodule in the right lower lobe without i ncreased FDG uptake. Significant interval decrease in size and wall thickness of a previously 5.8 x 5 .3 cm cavitary mass in the left lower lobe with maximal SUV of 14.9 which currently measures 2.6 x 1. 6 cm with significant decrease in the degree of wall thickening and significant decrease in degree of FDG uptake currently with maximum SUV of 3.1 consistent with treated non-small cell lung cancer. Int erval decrease in size, development of peripheral calcification and loss of FDG uptake associated wit h a few left hilar and AP window lymph nodes consistent with treated metastatic disease. There is mil d FDG uptake with maximal SUV of 3.4 associated with an 8 mm part solid nodule in the left lower lobe situated between the aorta and the left main pulmonary artery. There several additional smaller arsen d and groundglass nodules in the left lower lobe which are without corresponding FDG uptake. There is diffuse mild increased uptake along the pleura at the posterior and lateral aspect of the left midlu ng at the level of the treated cavitary mass. No corresponding pleural nodularity in this likely refl ects response to prior radiation treatment. Mild discoid atelectasis without abnormal FDG uptake at t he lingula. No pleural effusion. Heart size is normal. Atherosclerotic coronary artery calcification. No pericardial effusion. Thoracic aorta is normal in caliber. Right internal jugular central venous port catheter with distal tip at the superior cavoatrial junction. There are a few more densely calci fied subcarinal lymph nodes consistent with old granulomatous disease. There are scattered mild likel y salivary uptake along the esophagus without radiologic correlate. There are 2 small foci of increas ed uptake without radiologic correlate along the left and right margins of the T11 vertebral body wit h maximal SUV of 3.5 and 3.3 respectively. Abdomen/pelvis/proximal thighs: Physiologic renal accumulation and excretion of FDG activity in the kidneys, bladder and along portio ns of ureters. 6.3 cm low-attenuation photopenic cyst at the upper pole of the right kidney. Normal degree and heterogenous pattern of increased uptake throughout the liver without radiologic correlate or dominant FDG avid lesion. The gallbladder, pancreas and bilateral adrenal glands are normal. Smal l splenic calcifications consistent with old granulomatous disease. Mild uptake scattered throughout the bowels without radiologic correlate, also likely physiologic. Mild uptake without radiologic melo elate likely related to enthesopathy at the right ischial tuberosity origin of the proximal right ham string tendons. No other abnormal foci of increased FDG uptake or pathologically enlarged lymphadenop at
[2022-05-24 08:41] LABS: Glucose Point of Care 105 mg/dl (65-105)
== END 2022-05-24 07:47 | disposition home or self-care (01) ==
PROVIDERS: PCP Family Medicine; Visit Provider Internal Medicine Hematology & Oncology
DX: C34.32 Malignant neoplasm of lower lobe, left bronchus or lung (principal)
CPT/HCPCS: 78815; A9552

== ENCOUNTER 2022-09-05 09:51 | Outpatient (CLI) | payer MEDICARE, MEDICAID, SELFPAY ==
--- NOTE | ~2022-09-05 | CT_ITS ---
EXAMINATION: CT diagnostic chest wo con DATE: 09/05/2022 10:14 INDICATION: Non-small cell cancer of the left lung. TECHNIQUE: Computed tomography (CT) of the chest was performed without intravenous contrast. The dose -length product (DLP) was 145.49 mGy-cm. Automated exposure control and iterative reconstruction tech [email or web address] were employed. COMPARISON: 05/24/2022, 05/09/2022, 01/22/2022 FINDINGS: A right internal jugular Port-A-Cath ends with its tip in the distal superior vena cava. Ag ain seen is a cavitary mass in the left lower lobe with continued interval decrease in size. A 1.2 cm subsolid nodule of the right lower lobe has decreased in size and density. The previously described part solid nodule with mild FDG uptake in the left lower lobe is no longer identified. There are mult iple tiny nodules scattered throughout the lungs, likely old granulomatous disease. Again seen are pe ripherally calcified left hilar and aorticopulmonary window lymph nodes. There is a small left pleura l effusion. There is no pneumothorax. The heart size is normal. There is mild thoracic spondylosis. IMPRESSION: 1. Continued interval decrease in size of a cavitary left lower lobe mass, consistent with treated ma lignancy. 2. Decrease in size and density of a subsolid nodule of the right lower lobe, infection/inflammation versus treated minimally invasive adenocarcinoma. Reviewed, dictated and finalized at location [] IMPRESSION: 1. Continued interval decrease in size of a cavitary left lower lobe mass, cons istent with treated malignancy. 2. Decrease in size and density of a subsolid nodule of the right lower lobe, i nfection/inflammation versus treated minimally invasive adenocarcinoma.
== END 2022-09-05 09:52 | disposition home or self-care (01) ==
PROVIDERS: PCP Family Medicine; Visit Provider Internal Medicine Hematology & Oncology
DX: C34.92 Malignant neoplasm of unspecified part of left bronchus or lung (principal)
CPT/HCPCS: 71250

== ENCOUNTER 2022-09-16 08:28 | Outpatient (CLI) | payer MEDICARE, MEDICAID, SELFPAY ==
[2022-09-16 09:26] LABS: Cholesterol 185 mg/dL (0-200); HDL Direct 89 mg/dL; Triglycerides 76 mg/dL (<150)
[2022-09-16 09:38] LABS: LDL Cholesterol Direct 72 mg/dL
== END 2022-09-16 08:29 | disposition home or self-care (01) ==
LOC: ANHLAB 08:32
PROVIDERS: Physician Assistant; PCP Family Medicine; Visit Provider Family Medicine
DX: G45.9 Transient cerebral ischemic attack, unspecified (principal); Z13.220 Encounter for screening for lipoid disorders
CPT/HCPCS: 36415; 80061

== ENCOUNTER 2022-12-16 07:59 | Outpatient (CLI) | payer MEDICARE, MEDICAID, SELFPAY ==
--- NOTE | ~2022-12-16 | CT_ITS ---
CT Scan of the Chest without Contrast: Clinical Indication: Lung cancer Technique: Contiguous sections were acquired throughout the chest without intravenous contrast. Dose reduction technique was used on this scan by utilizing automated exposure control and iterative recon struction technique. The dose-length product (DLP) was 147.70 mGy-cm. COMPARISON: 09/05/2022 Findings: Right-sided Mediport in place. Large calcified lymph nodes at the AP window region and left hilar region are stable from prior exam, suggestive of treated melody metastatic disease. Irregular area of consolidation with focal cavitatio n extending to the left hilum is also stable from prior exam, compatible with treated disease. Small left pleural effusion is present. Right lung is essentially clear. No right pleural effusion. Images through the upper abdomen reveal no abnormalities. Impression: Overall, no significant interval change from most recent prior exam. Irregular consolidation extending from left hilum with focal dilatation, consistent with treated left lung carcinoma. Enlarged left hilar and AP window lymph nodes with extensive calcification, suggestive of treated met astatic melody disease. Small left pleural effusion. Reviewed, dictated and finalized at [facility]. Impression: Overall, no significant interval change from most recent prior exam. Irregular consolidation extending from left hilum with focal dilatation, consis tent with treated left lung carcinoma. Enlarged left hilar and AP window lymph nodes with extensive calcification, sug gestive of treated metastatic melody disease. Small left pleural effusion.
== END 2022-12-16 08:00 | disposition home or self-care (01) ==
PROVIDERS: PCP Family Medicine; Visit Provider Internal Medicine Hematology & Oncology
DX: C34.92 Malignant neoplasm of unspecified part of left bronchus or lung (principal); J90 Pleural effusion, not elsewhere classified
CPT/HCPCS: 71250

== ENCOUNTER 2023-02-08 13:17 | Outpatient (CLI) | payer MEDICARE, SELFPAY ==
--- NOTE | ~2023-02-08 | MM_ITS ---
EXAMINATION: MM screening ara BI w blaine HISTORY: Screening mammogram TECHNIQUE: Craniocaudal and mediolateral oblique 3-D tomosynthesis images were obtained and synthetic 2-D images were generated. CAD analysis was submitted and interpreted. COMPARISON: 09/30/2020 bilateral screening mammogram BREAST PARENCHYMAL COMPOSITION: There are scattered areas of fibroglandular density. FINDINGS: There is no evidence of suspicious mass, calcification, or architectural distortion to sugg est malignancy in either breast. There has been no suspicious interval change. IMPRESSION: 1. No mammographic evidence of malignancy. 2. Recommend routine screening mammography in one year. BI-RADS Category 1: Negative Reviewed, dictated and finalized at location A. RGLASS AUTOBODY REPAIRER
== END 2023-02-08 13:18 ==
LOC: MICIMG 13:19
PROVIDERS: PCP Family Medicine; Visit Provider Physician Assistant
DX: Z12.31 Encounter for screening mammogram for malignant neoplasm of breast (principal)
CPT/HCPCS: 77063; 77067

== ENCOUNTER 2023-03-15 01:44 | Day surgery (SDC) | payer MEDICARE, SELFPAY ==
[2023-02-21 13:38] VITALS: BMI 20.3
--- NOTE | 2023-03-10 12:35 | SUR.PREOP ---
Patient called regarding upcoming procedure. left voicemail with procedure date and time and contact for questions.
--- NOTE | 2023-03-13 15:59 | PM.HPGS ---
History of Present Illness History of Present Illness Consent: Risks, benefits, and alternatives have been discussed and questions answered. Patient agrees to proceed with procedure. Chief complaint: neoplasm screening Narrative: Zena Stone is a 67 year old female who is referred for colon cancer screening. Review of Systems Review of Systems: All systems reviewed & are unremarkable except as noted in HPI and below PMFSH Past Medical History Medical History Arthritis COVID-19 (02/2021) Depression Gastroesophageal reflux disease History of rectal polyps Hyperlipidemia Hypertension Lung cancer Tobacco abuse Transient ischemic attack (07/2015) Surgical History Surgical History History of colonoscopy with polypectomy History of repair of left rotator cuff History of tubal ligation Family History Family History Mother Lung cancer Father Hypertension Congestive heart failure Renal failure Grandparent Carcinoma of colon Sibling Acute myocardial infarction Social History Social History Social History: Surrogate decision maker: [place], . Code status: Full code. Smoking packs per day: 0.5 Smoking cigarettes per day: 10.0 Years smoked: 40 Smoking pack-years: 20.00 Smoking status: Former smoker Tobacco type: cigarettes Second hand tobacco smoke exposure: No Smoking end date: 03/13/20 Additional smoking assessment comments: most smoked a pack a day Alcohol intake: current Alcohol use details: rarely Substance use: never Substance use type: does not use Lack of Transportation: No Lack of Food: Never True Current Housing: I Have Housing Concerned About Future Housing: No Difficulty Paying Gas/Electric Bills: No Difficulty Paying for Meds: No Currently Unemployed: No Education: High School Diploma/GED Difficulty w/ Childcare or Family Care: No Living arrangements: with family Additional living arrangements comments: The patient lives with her in [place]. Occupation/Education: retired Additional occupation/education comments: Retired. Gender identity (if verbalized by the patient): Female Spiritual care concerns: No Agree to blood products: Yes Meds Home Medications and Allergies Home Medications Medication Instructions Recorded Confirmed Type aspirin 81 mg chewable tablet 81 mg PO DAILY 05/14/19 03/15/23 History albuterol sulfate 90 mcg/actuation 1 inh inhalation PRN PRN shortness 10/19/21 03/15/23 History aerosol inhaler (ProAir HFA) of breath or wheezing ferrous sulfate 325 mg (65 mg 325 mg PO DAILY 11/24/21 03/15/23 History iron) tablet umeclidinium 62.5 mcg-vilanterol See Rx Instructions .Route 09/23/22 03/15/23 Rx 25 mcg/actuation powdr for .COMPLEX #360 blisters inhalation (Anoro Ellipta) alprazolam 0.5 mg tablet 0.5 mg PO BID PRN anxiety #30 tabs 01/04/23 03/15/23 Rx ergocalciferol (vitamin D2) 1,250 1,250 mcg PO WEEKLY #12 caps 01/04/23 03/15/23 Rx mcg (50,000 unit) capsule esomeprazole magnesium 20 mg See Rx Instructions .Route 01/04/23 03/15/23 Rx capsule,delayed release .COMPLEX #90 caps simvastatin 20 mg tablet See Rx Instructions .Route 01/04/23 03/15/23 Rx .COMPLEX #90 tabs duloxetine 30 mg capsule,delayed 30 mg PO BID 02/21/23 03/15/23 History release Allergies Allergy/AdvReac Type Severity Reaction Status Date / Time No Known Allergies Allergy Verified 03/15/23 07:45 Exam Const: General: alert Orientation/consciousness: patient oriented x3 Resp: Auscultation: clear to auscultation bilaterally Cardio: Rhythm: regular rhythm GI: GI Palp: Yes Soft to palpation and No Tenderness to palpation present (GI) Neuro: General: patient oriente
[2023-03-15 07:35] VITALS: BP 115/71; PULSE 123; RESP 18; TEMP 36.4; O2SAT 97; BMI 19.9
[2023-03-15] MEDS: LACTATED RINGERS 1,000 ML 150 ML IV CONT (08:00)
--- NOTE | 2023-03-15 08:23 | WPDANESEPPF ---
Anes - Initial Pre Proc Eval Procedure: Operation Date: 03/15/23 09:00 Proposed Procedures p Screening Colonoscopy - Roman Khalil MD Date/Time: 03/15/23 08:23 Surgeon: Roman Khalil MD Pre Op Diagnosis: neoplasm screening Patient Data Age: 67 Gender: F Height: 1.6 m Weight: 51.1 kg Last Vital Signs Temp 97.6 F 03/15/23 07:35 Pulse 123 H 03/15/23 07:35 Resp 18 03/15/23 07:35 BP 115/71 03/15/23 07:35 Pulse Ox 97 03/15/23 07:35 O2 Del Method Room Air 03/15/23 07:35 Allergies Allergy/AdvReac Type Severity Reaction Status Date / Time No Known Allergies Allergy Verified 03/15/23 07:45 Home Medications Medication Instructions Recorded Confirmed Type aspirin 81 mg chewable tablet 81 mg PO DAILY 05/14/19 03/15/23 History albuterol sulfate 90 mcg/actuation 1 inh inhalation PRN PRN shortness 10/19/21 03/15/23 History aerosol inhaler (ProAir HFA) of breath or wheezing ferrous sulfate 325 mg (65 mg 325 mg PO DAILY 11/24/21 03/15/23 History iron) tablet umeclidinium 62.5 mcg-vilanterol See Rx Instructions .Route 09/23/22 03/15/23 Rx 25 mcg/actuation powdr for .COMPLEX #360 blisters inhalation (Anoro Ellipta) alprazolam 0.5 mg tablet 0.5 mg PO BID PRN anxiety #30 tabs 01/04/23 03/15/23 Rx ergocalciferol (vitamin D2) 1,250 1,250 mcg PO WEEKLY #12 caps 01/04/23 03/15/23 Rx mcg (50,000 unit) capsule esomeprazole magnesium 20 mg See Rx Instructions .Route 01/04/23 03/15/23 Rx capsule,delayed release .COMPLEX #90 caps simvastatin 20 mg tablet See Rx Instructions .Route 01/04/23 03/15/23 Rx .COMPLEX #90 tabs duloxetine 30 mg capsule,delayed 30 mg PO BID 02/21/23 03/15/23 History release Patient hx anesthesia problems: none Family hx anesthesia problems: none Results Review: All pre-operative results and documents have been reviewed as part of the pre-operative evaluation. [facility] Past Medical History Medical History Arthritis COVID-19 (02/2021) Depression Gastroesophageal reflux disease History of rectal polyps Hyperlipidemia Hypertension Lung cancer Tobacco abuse Transient ischemic attack (07/2015) Surgical History Surgical History History of colonoscopy with polypectomy History of repair of left rotator cuff History of tubal ligation Family History Family History Mother Lung cancer Father Hypertension Congestive heart failure Renal failure Grandparent Carcinoma of colon Sibling Acute myocardial infarction Social History Social History Social History: Surrogate decision maker: [place], . Code status: Full code. Smoking packs per day: 0.5 Smoking cigarettes per day: 10.0 Years smoked: 40 Smoking pack-years: 20.00 Smoking status: Former smoker Tobacco type: cigarettes Second hand tobacco smoke exposure: No Smoking end date: 03/13/20 Additional smoking assessment comments: most smoked a pack a day Alcohol intake: current Alcohol use details: rarely Substance use: never Substance use type: does not use Lack of Transportation: No Lack of Food: Never True Current Housing: I Have Housing Concerned About Future Housing: No Difficulty Paying Gas/Electric Bills: No Difficulty Paying for Meds: No Currently Unemployed: No Education: High School Diploma/GED Difficulty w/ Childcare or Family Care: No Living arrangements: with family Additional living arrangements comments: The patient lives with her in [place]. Occupation/Education: retired Additional occupation/education comments: Retired. Gender identity (if verbalized by the patient): Female Spiritual care concerns: No Agree to blood products: Yes Anes - Eval Final PreProcedure Day of Pr
[2023-03-15 09:15] VITALS: BP 137/92; PULSE 72; RESP 19; O2SAT 98
[2023-03-15 09:25] VITALS: BP 114/67; PULSE 105; RESP 20; O2SAT 98
[2023-03-15 09:35] VITALS: BP 118/75; PULSE 93; RESP 20; O2SAT 98
== END 2023-03-15 09:37 | disposition home or self-care (01) ==
PROVIDERS: PCP Family Medicine; Visit Provider Internal Medicine Gastroenterology
PROC: 0DJD8ZZ Inspection of Lower Intestinal Tract, Via Natural or Artificial Opening Endoscopic (ICD-10-PCS; CPT 45378; principal; 2023-03-15 09:00)
DX: Z12.11 Encounter for screening for malignant neoplasm of colon (principal); K63.5 Polyp of colon; K62.1 Rectal polyp; K57.30 Diverticulosis of large intestine without perforation or abscess without bleeding; K64.8 Other hemorrhoids; K64.4 Residual hemorrhoidal skin tags; I10 Essential (primary) hypertension; E78.5 Hyperlipidemia, unspecified; K21.9 Gastro-esophageal reflux disease without esophagitis; F32.A Depression, unspecified; Z79.82 Long term (current) use of aspirin; Z79.51 Long term (current) use of inhaled steroids; Z87.891 Personal history of nicotine dependence; Z85.118 Personal history of other malignant neoplasm of bronchus and lung; Z86.73 Personal history of transient ischemic attack (TIA), and cerebral infarction without residual deficits; Z82.49 Family history of ischemic heart disease and other diseases of the circulatory system; Z80.1 Family history of malignant neoplasm of trachea, bronchus and lung; Z80.0 Family history of malignant neoplasm of digestive organs
CPT/HCPCS: 45385; 88305; J2704; J7120

== ENCOUNTER 2023-03-16 07:47 | Outpatient (CLI) | payer MEDICARE, SELFPAY ==
--- NOTE | ~2023-03-16 | CT_ITS ---
Clinical Indication: Lung cancer CT Scan of the Chest with Contrast: Technique: Contiguous sections were acquired throughout the chest after intravenous administration of 75 cc of Omnipaque 350. Dose reduction technique was used on this scan by utilizing automated exposu re control and iterative reconstruction technique. The dose-length product (DLP) was 137.51 mGy-cm. COMPARISON: 12/16/2022 Findings: No large central pulmonary embolus seen. There is no evidence of aortic dissection or aneurysm. No ax illary lymphadenopathy. No pericardial effusion. Right lung clear. No right pleural effusion. There is stable extensively calcified AP window and left hilar/perihilar lymph nodes or masses. There is stable irregular consolidation extending from the left hilum into the superior segment of the lef t lower lobe pleural surface, with minimal bronchiolectasis and possible small focal area of cavitati on. Small left pleural effusion is unchanged. Images through the upper abdomen reveal no abnormalities. Impression: No change from prior exam. Stable presumed post therapy changes, with stable, irregular consolidation extending from left hilum through the left lower lobe superior segment. Stable extensive calcified A P window and left hilar/perihilar lymph nodes. Stable small left pleural effusion. Reviewed, dictated and finalized at location . RHANGER Impression: No change from prior exam. Stable presumed post therapy changes, with stable, i rregular consolidation extending from left hilum through the left lower lobe wood perior segment. Stable extensive calcified AP window and left hilar/perihilar l ymph nodes. Stable small left pleural effusion.
== END 2023-03-16 07:48 | disposition home or self-care (01) ==
PROVIDERS: PCP Family Medicine; Visit Provider Internal Medicine Hematology & Oncology
DX: C34.92 Malignant neoplasm of unspecified part of left bronchus or lung (principal); J90 Pleural effusion, not elsewhere classified
CPT/HCPCS: 71260; Q9967

== ENCOUNTER 2023-06-22 08:33 | Outpatient (CLI) | payer MEDICARE, SELFPAY ==
--- NOTE | ~2023-06-22 | CT_ITS ---
EXAMINATION:CT diagnostic chest w con DATE: 06/22/2023 09:00 INDICATION: Non-small cell cancer of left lung. TECHNIQUE: Computed tomography (CT) of the chest was performed with 75 mL Omnipaque 350 intravenous c ontrast. Automated exposure control and iterative reconstruction technique were employed. The dose-le ngth product (DLP) was 144.83 mGy-cm. COMPARISON: Chest CT 03/16/2023 FINDINGS: There is mild scarring at right lung apex. There is mild emphysema. There are airspace opac ities with volume loss, architectural distortion, and central cavitation in left midlung zone. Calcif ied left lung nodules and calcified left hilar and mediastinal lymph nodes are consistent with old gr anulomatous disease. Peripherally calcified left hilar and mediastinal lymph nodes are consistent wit h treated metastatic disease. There is a trace left pleural effusion. The heart size is normal. There is a small pericardial effusion. There are coronary artery calcifications. There is a 6.2 cm cyst in right kidney. There is a right internal jugular port with tip in superior vena cava. There is mild t horacic spondylosis. IMPRESSION: 1. 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 2. Stable peripherally calcified left hilar and mediastinal lymph nodes, consistent with treated meta static disease. 3. Stable small pericardial effusion. Reviewed, dictated and finalized at location A. IMPRESSION: 1. 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 2. Stable peripherally calcified left hilar and mediastinal lymph nodes, consis tent with treated metastatic disease. 3. Stable small pericardial effusion.
[2023-06-22 08:50] LABS: Estimated Glomerular Filt Rate > 60
== END 2023-06-22 08:34 | disposition home or self-care (01) ==
LOC: ANHIMG 08:36
PROVIDERS: PCP Family Medicine; Visit Provider Internal Medicine Hematology & Oncology
DX: C34.92 Malignant neoplasm of unspecified part of left bronchus or lung (principal); J90 Pleural effusion, not elsewhere classified
CPT/HCPCS: 71260; Q9967

== ENCOUNTER 2023-09-25 07:30 | Outpatient (CLI) | payer MEDICARE, SELFPAY ==
--- NOTE | ~2023-09-25 | CT_ITS ---
Clinical Indication: Lung cancer CT Scan of the Chest with Contrast: Technique: Contiguous sections were acquired throughout the chest after intravenous administration of 75 cc of Omnipaque 350. Dose reduction technique was used on this scan by utilizing automated exposu re control and iterative reconstruction technique. The dose-length product (DLP) was 152.81 mGy-cm. COMPARISON: 06/22/2023 Findings: There are stable calcified masslike lesions at the AP window and left hilar region, which could refle ct calcified, posttreatment lymph nodes. Irregular consolidation extending from left hilum to the per iphery of the left lung is similar to prior exam, compatible with postradiation change and/or treated disease. Right lung is clear. Small pericardial effusion present. Minimal left pleural effusion present. No right pleural effusion. No aortic aneurysm or dissection seen. No pulmonary embolus seen. Images through the upper abdomen reveal no abnormalities. Impression: Overall, no significant change from prior exam. Stable probable postradiation and/or posttreatment ch anges in the mid left lung, extending from the hilum to the peripheral pleural surface. Stable calcified, probable treated metastatic melody disease at the AP window and left hilum. Small pericardial effusion and small left pleural effusion. Reviewed, dictated and finalized at location . Impression: Overall, no significant change from prior exam. Stable probable postradiation a nd/or posttreatment changes in the mid left lung, extending from the hilum to t he peripheral pleural surface. Stable calcified, probable treated metastatic melody disease at the AP window an d left hilum. Small pericardial effusion and small left pleural effusion.
[2023-09-25 08:04] LABS: Estimated Glomerular Filt Rate > 60
== END 2023-09-25 07:31 | disposition home or self-care (01) ==
LOC: ANHIMG 07:32
PROVIDERS: PCP Family Medicine; Visit Provider Internal Medicine Hematology & Oncology
DX: C34.92 Malignant neoplasm of unspecified part of left bronchus or lung (principal); I31.39 Other pericardial effusion (noninflammatory)
CPT/HCPCS: 71260; Q9967

== ENCOUNTER 2023-10-06 10:51 | Outpatient (CLI) | payer MEDICARE, SELFPAY ==
[2023-10-06 14:33] LABS: Cholesterol 184 mg/dL (0-200); HDL Direct 94 mg/dL; Triglycerides 108 mg/dL (<150)
[2023-10-06 14:43] LABS: LDL Cholesterol Direct 66 mg/dL
== END 2023-10-06 10:52 | disposition home or self-care (01) ==
LOC: ANHLAB 10:53
PROVIDERS: Student in an Organized Health Care Education/Training Program; PCP Family Medicine; Visit Provider Internal Medicine Hematology & Oncology
DX: Z78.0 Asymptomatic menopausal state (principal); M85.80 Other specified disorders of bone density and structure, unspecified site; E78.5 Hyperlipidemia, unspecified
CPT/HCPCS: 36415; 80061

== ENCOUNTER 2023-12-07 13:15 | Outpatient (CLI) | payer MEDICARE, SELFPAY ==
--- NOTE | 2023-12-07 13:34 | ECHO_ITS ---
Patient Info Name: Zena Stone Age: 68 years : 1955 Gender: Female Ht: 63 in Wt: 115 lbs BSA: 1.52 m2 HR: 120 bpm BP: 133 / 76 mmHg Technical Quality: Fair Exam Date: 12/07/2023 2:23 PM Exam Location: Echo Lab Patient Status: Outpatient Admit Date: 12/07/2023 Staff Ordering Physician: Amrita Love PA-C Talent Acquisition Project Manager: Kate Guerin RDCS Attending Provider: Amrita Love PA-C Referring Physician: Ivan ADDISON; Exam Type: CA echo doppler color flow Study Info Indications R01.1 - Cardiac murmur, unspecified Complete two-dimensional, color flow and Doppler transthoracic echocardiogram is performed. Strain analysis performed. Summary 1. Complete two-dimensional, color flow and Doppler transthoracic echocardiogram is performed. 2. Left ventricular chamber dimension is normal. 3. Left ventricular systolic function is hyperdynamic, estimated at >70%. 4. There is moderate concentric increased left ventricular wall thickness. 5. The left ventricular diastolic function is grade I diastolic dysfunction. 6. E/e' 6 is not elevated. 7. Global longitudinal strain is abnormal at -13.0%. 8. Left atrial chamber dimension is mildly enlarged. 9. There is severe aortic valve sclerosis. 10. There is mild aortic valve stenosis with a peak velocity of 209 cm/s, mean gradient of 10 mmHg, and aortic valve area of 1.9 cm2. 11. The mitral valve has mildly calcified annulus. 12. No pulmonary hypertension, estimated pulmonary arterial systolic pressure is 38 mmHg. 13. There is small right sided pericardial effusion. Left Ventricle E/e' 6 is not elevated. Global longitudinal strain is abnormal at -13.0%. Left ventricular chamber dimension is normal. Left ventricular systolic function is hyperdynamic, estimated at >70%. There is moderate concentric increased left ventricular wall thickness. The left ventricular diastolic function is grade I diastolic dysfunction. Right Ventricle Right ventricular chamber dimension is normal. Right ventricular systolic function is normal. Left Atria Left atrial chamber dimension is mildly enlarged. Right Atria Right atrial chamber dimension is normal. Aortic Valve The aortic valve is trileaflet. There is severe aortic valve sclerosis. There is mild aortic valve stenosis with a peak velocity of 209 cm/s, mean gradient of 10 mmHg, and aortic valve area of 1.9 cm2. There is no aortic valve regurgitation. Pulmonic Valve There is no pulmonic regurgitation. Mitral Valve The mitral valve has mildly calcified annulus. There is no mitral valve stenosis. There is no mitral valve regurgitation. Tricuspid Valve There is no tricuspid valve regurgitation. No pulmonary hypertension, estimated pulmonary arterial systolic pressure is 38 mmHg. Pericardium/Pleural There is small right sided pericardial effusion. No cardiac tamponade. Inferior Vena Cava Normal inferior vena cava with >50% collapse upon inspiration consistent with normal right atrial pressure, 5 mmHg. Aorta The aortic root size at the sinus of Valsalva is normal. Left Ventricular Outflow Tract Name Value Normal LVOT 2D LVOT Diameter 1.9 cm LVOT Doppler LVOT Peak Gradient 8 mmHg
== END 2023-12-07 13:16 | disposition home or self-care (01) ==
LOC: ANHCARD 13:16
PROVIDERS: PCP Family Medicine; Visit Provider Student in an Organized Health Care Education/Training Program
DX: R01.1 Cardiac murmur, unspecified (principal); I50.30 Unspecified diastolic (congestive) heart failure; I35.8 Other nonrheumatic aortic valve disorders; I35.0 Nonrheumatic aortic (valve) stenosis; I34.81 Nonrheumatic mitral (valve) annulus calcification; I31.9 Disease of pericardium, unspecified
CPT/HCPCS: 93306

== ENCOUNTER 2024-01-02 08:00 | Outpatient (CLI) | payer MEDICARE, SELFPAY ==
--- NOTE | ~2024-01-02 | CT_ITS ---
EXAMINATION:CT diagnostic chest w con DATE: 01/02/2024 08:36 INDICATION: Non-small cell cancer of left lung. TECHNIQUE: Computed tomography (CT) of the chest was performed with 75 mL Omnipaque 350 intravenous c ontrast. Automated exposure control and iterative reconstruction technique were employed. The dose-le ngth product (DLP) was 146.16 mGy-cm. COMPARISON: Chest CT 09/25/2023 FINDINGS: There is mild emphysema. There are airspace opacities with volume loss involving left lung perihilar region and midlung zone with architectural distortion and cavitation. Calcified left lung n odules and calcified left hilar and subcarinal are consistent with old granulomatous disease. There a re chronic peripherally calcified left hilar and mediastinal lymph nodes, consistent with treated met astatic disease. There is a trace left pleural effusion. The heart size is normal. There are coronary artery calcifications. There is a small pericardial effusion. There is a right internal jugular port with tip in superior vena cava. There are acute pulmonary emboli in right lower lobe. There is a 5.8 cm cyst in right kidney. There is mild thoracic spondylosis. IMPRESSION: 1. Acute pulmonary embolus in right lower lobe. 2. Stable radiation fibrosis in left lung. 3. Chronic peripherally calcified left hilar and mediastinal lymph nodes, consistent with treated met astatic disease. 4. Small pericardial effusion. Reviewed, dictated and finalized at location A. IMPRESSION: 1. Acute pulmonary embolus in right lower lobe. 2. Stable radiation fibrosis in left lung. 3. Chronic peripherally calcified left hilar and mediastinal lymph nodes, consi stent with treated metastatic disease. 4. Small pericardial effusion.
[2024-01-02 08:26] LABS: Estimated Glomerular Filt Rate > 60
== END 2024-01-02 08:01 | disposition home or self-care (01) ==
LOC: ANHIMG 08:03
PROVIDERS: PCP Family Medicine; Visit Provider Internal Medicine Hematology & Oncology
DX: C34.92 Malignant neoplasm of unspecified part of left bronchus or lung (principal); J90 Pleural effusion, not elsewhere classified; I26.99 Other pulmonary embolism without acute cor pulmonale
CPT/HCPCS: 71260; Q9967

== ENCOUNTER 2024-04-11 07:45 | Outpatient (CLI) | payer MEDICARE, SELFPAY ==
--- NOTE | ~2024-04-11 | CT_ITS ---
EXAMINATION:CT diagnostic chest w con DATE: 04/11/2024 08:09 INDICATION: Non-small cell cancer of left lung. TECHNIQUE: Computed tomography (CT) of the chest was performed with 75 mL Omnipaque 350 intravenous c ontrast. Automated exposure control and iterative reconstruction technique were employed. The dose-le ngth product (DLP) was 144.16 mGy-cm. COMPARISON: Chest CT 01/02/2024 FINDINGS: There is mild emphysema. There are airspace opacities with volume loss involving left lung perihilar region and midlung zone with architectural distortion and cavitation. Calcified left lung n odules and calcified left hilar and subcarinal are consistent with old granulomatous disease. There a re chronic peripherally calcified left hilar and mediastinal lymph nodes, consistent with treated met astatic disease. There is a trace left pleural effusion. The heart size is normal. There are coronary artery calcifications. There is a small pericardial effusion. There is a right internal jugular port with tip in superior vena cava. There is a 5.8 cm cyst in right kidney. There is mild thoracic spond ylosis. IMPRESSION: 1. Stable radiation fibrosis in left lung. 2. Chronic peripherally calcified left hilar and mediastinal lymph nodes, consistent with treated met astatic disease. 3. Stable small pericardial effusion. Reviewed, dictated and finalized at location A. MOLOGY PROFESSOR IMPRESSION: 1. Stable radiation fibrosis in left lung. 2. Chronic peripherally calcified left hilar and mediastinal lymph nodes, consi stent with treated metastatic disease. 3. Stable small pericardial effusion.
[2024-04-11 08:02] LABS: Estimated Glomerular Filt Rate > 60
== END 2024-04-11 07:46 | disposition home or self-care (01) ==
PROVIDERS: PCP Family Medicine; Visit Provider Internal Medicine Hematology & Oncology
DX: C34.92 Malignant neoplasm of unspecified part of left bronchus or lung (principal); I31.39 Other pericardial effusion (noninflammatory)
CPT/HCPCS: 71260; Q9967

== ENCOUNTER 2024-08-12 06:32 | Outpatient (CLI) | payer MEDICARE, SELFPAY ==
--- NOTE | ~2024-08-12 | CT_ITS ---
Clinical Indication: Lung cancer CT Scan of the Chest with Contrast: Technique: Contiguous sections were acquired throughout the chest after intravenous administration of 75 cc of Omnipaque 350. Dose reduction technique was used on this scan by utilizing automated exposu re control and iterative reconstruction technique. The dose-length product (DLP) was 149.93 mGy-cm. COMPARISON: 04/11/2024 Findings: There is no filling defect in the pulmonary arterial tree to suggest pulmonary embolus. There is no e vidence of aortic dissection or aneurysm. Moderate pericardial effusion present. No pleural effusions. Stable coarsely calcified masslike lesions or lymph nodes at the AP window region and left hilar christianne on. There is stable consolidation extending from the left hilum to the periphery of the left lung at the upper lobe and superior segment left lower lobe, which could reflect postradiation change and/or treated disease. Stable relative left-sided volume loss. Right lung is clear. Mild edematous change n oted. Images through the upper abdomen reveal diffuse hepatic status is. Impression: Overall, no significant interval change from prior exam. Irregular consolidation extending from the l eft hilum to the periphery of the left lung at the mid lung zone is most compatible with postradiatio n change and/or treated disease. Stable calcified lesions at the left hilum and AP window which could reflect treated metastatic lesion and/or underlying chronic granulomatous disease. Stable left-sided volume loss. Mild emphysema. Moderate pericardial effusion. Reviewed, dictated and finalized at [facility]. Impression: Overall, no significant interval change from prior exam. Irregular consolidatio n extending from the left hilum to the periphery of the left lung at the mid josh ng zone is most compatible with postradiation change and/or treated disease. St able calcified lesions at the left hilum and AP window which could reflect anat butch metastatic lesion and/or underlying chronic granulomatous disease. Stable l eft-sided volume loss. Mild emphysema. Moderate pericardial effusion.
--- OUTSIDE RECORDS SUMMARY | 2024-08-12 06:35 | XMS_ITS | Clinical Summary ---
Author Organization [facility] Address [address] [place] [address] Phone Care Team Providers Care Combining Machine Operator Name Role Phone Tanya Anand MD Primary Care Provider [phone] Allergies No known active allergies Medications simvastatin (ZOCOR) 20 mg tablet Take 20 mg by mouth daily at bedtime. Active DULoxetine (CYMBALTA) 30 mg Capsule, Delayed Release(E.C.) Take 60 mg by mouth daily. Active aspirin (ECOTRIN EC) 81 mg Tablet, Delayed Release (E.C.) Take 81 mg by mouth daily. Active albuterol sulfate 90 mcg/Actuation inhaler Take 2 Puffs by inhalation every 6 hours as needed for Shortness of Breath. Active ALPRAZolam (Xanax) 0.5 mg tablet Take 0.5 mg by mouth nightly as needed for Anxiety. Active esomeprazole (NexIUM) 20 mg Capsule, Delayed Release(E.C.) Take 20 mg by mouth daily before breakfast. Active ergocalciferol (VITAMIN D2) 50,000 unit capsule 2 Active cyanocobalamin 1,000 mcg Tablet Take 1,000 mcg by mouth daily. Active lidocaine-diphe wtpkgnvva-Rn-vt gnesium-simethi cone (FIRST-Mouthwas h BLM) [id number] mg/30mL Mouthwash 10 mL by Mouth/Throat route every 6 hours as needed for Sore Throat. 237 mL 2 2 Active buPROPion HCL (WELLBUTRIN SR) 150 mg Sustained Release 12 hour tablet Take 150 mg by mouth 2 times daily. Active amLODIPine (NORVASC) 5 mg tablet Take 1 Tablet by mouth daily. 4 Active metoprolol succinate (TOPROL XL) 25 mg Extended Release 24 hour tablet Take 1 Tablet by mouth daily. 4 Active Spiriva Respimat 1.25 mcg/actuation Mist inhale 2 puffs by mouth every day 4 Active apixaban (Eliquis) 5 mg tablet TAKE 1 TABLET BY MOUTH TWICE A DAY 60 Tablet 3 5 Active Active Problems Problem Noted Date Diagnosed Date Non-small cell cancer of left lung 10/15/2021 Resolved Problems Problem Noted Date Diagnosed Date Resolved Date Mass of lower lobe of left lung 10/15/2021 Hilar mass 10/15/2021 Encounters Date Type Department Care Team Description 08/01/2024 External Device Data ST[facility] ABSTRACTION Provider, Abstract 07/31/2024 External Device Data ST[facility] ABSTRACTION Provider, Abstract 07/30/2024 External Device Data [facility] ABSTRACTION Provider, Abstract from Last 3 Months Immunizations Immunization Administration Dates Next Due (SPIKEVAX) (12 YRS UP PRIMAR Y SERIES) COVID-19 VACCINE - MRNA-1273(PF) 100 MCG/0.5 ML IM SUSP 06/18/2020,05/21/2020 Influenza Seasonal Unspecified Formulation IM Social History Tobacco Use Types Packs/Day Years Used Date Smoking Tobacco: Former Cigarettes Q uit: 11/11/2021 Tobacco Cessation:Counseling Given: Not Answered Alcohol Use Standard Drinks/Week Comments Yes 0 (1 standard drink = 0.6 oz pur e alcohol) socially Comments Unknown Sex and Gender Information Value Date Recorded Sex Assigned at Not on file Legal Sex Female 1:02 PM CDT Gender Identity Not on file Sexual Orientation Not on file Last Filed Vital Signs Vital Sign Reading Time Taken Comments Blood Pressure 128/77 04/19/2024 10:21 AM ICT ACCOUNT MANAGER Pulse 108 04/19/2024 10:21 AM ICT ACCOUNT MANAGER patients standard pulse is this range Temperature 36.6 C (97.8 F) 04/19/2024 10:21 AM ICT ACCOUNT MANAGER Respiratory Rate 16 04/19/2024 10:2 1 AM ICT ACCOUNT MANAGER Oxygen Saturation 93% 04/19/2024 10: 21 AM ICT ACCOUNT MANAGER Inhaled Oxygen Concentration - - Weight 54.9 kg (121 lb) 04/19/2024 10:2 1 AM ICT ACCOUNT MANAGER Height 160 cm (5' 3) 12/29/2021 8:33 AM CDT Body Mass Index 21.43 12/29/2021 8:33 AM CDT Plan of Treatment Upcoming Encounters Date Type Department Care Team (Late st Contact Info) Description 08/23/2024 10:30 AM CDT Office Visit [facility] Oncology and Hematology - [place] [address] [facility] [address] [place] [address] Jose Kelley MD [address] [facility] [address] [place] [address] Health Maintenance Due Date Last Done Comments DTAP/TDAP/TD VACCINES (1 - Tdap) 1972 FIT-DNA Q 3 years 1998 FIT/FOBT Q 1 year 1998 Flex Sig/CT Colonography Q 5 years 1998 PNEUMOCOCCAL VACCINE 50+ YEA RS (1 of 1 - PCV) 09/15/2003 ZOSTER VACCINE (1 of 2) 09/15/2003 INFLUENZA VACCINE (#1) 2023 12/12/2020 COVID-19 Vaccine (3 - 2023-2 5 season) 2023 06/18/2020, 05/21/2020 BREAST CANCER SCREENING 02/09/2024 02/09/20 23, 02/08/2023, 09/30/2020, Additional history exists OSTEOPOROSIS SCREENING 09/30/2025 09/30/2020 RSV VACCINE (60+ or ) (1 - 1-dose 75+ series) 2028 COLORECTAL SCREENING 03/15/2033 03/15/2023 Colorectal Cancer Screening 03/15/2033 Insurance MEDICARE PART A AND B MEDICARE PART A AND B BCBS SUPP Care Teams Combining Machine Operator Relationship Specialty Start Date End Date Tanya Anand MD [address] [place] [id number] PCP - General Family Practice 10/07/21
--- OUTSIDE RECORDS SUMMARY | 2024-08-12 06:35 | XMS_ITS | Clinical Summary ---
Author Organization [facility] Address [address] [place] [id number] Phone Care Team Providers Care Tv News Director Name Role Phone Tanya Anand MD Primary Care Provider [phone] Allergies No known active allergies Medications albuterol HFA (PROVENTIL HFA) 108 (90 Base) MCG/ACT inhaler INHALE 1 PUFF EVERY 4 HOURS NEEDED FOR SHORTNESS OF BREATH OR WHEEZING 2 Active amLODIPine (NORVASC) 5 MG tablet 2 Active clindamycin (CLEOCIN) 300 MG capsule TAKE 1 CAPSULE BY MOUTH EVERY 6 HOURS FOR 30 DAYS 2 Active DULoxetine (CYMBALTA) [address] capsule 2 Active ergocalciferol (VITAMIN D2) 1.25 MG (69822 UT) capsule 2 Active esomeprazole (NexIUM) [address] capsule 2 Active guaiFENesin-cod eine (ROBITUSSIN-AC) 100-10 MG/5ML syrup TAKE 10ML BY MOUTH EVERY 4-6 HOURS NEEDED FOR COUGH 2 Active simvastatin (ZOCOR) 20 MG tablet 2 Active Anoro Ellipta 62.5-25 MCG/INH aerosol powder USE 1 INHALATION DAILY 30 DAYS 2 Active Active Problems No known active problems Immunizations Immunization Administration Dates Next Due Sars-cov-2, Unspecified 07/31/2020 Family History Medical History Relation Comments Congestive heart failure Father Hypertension Father Renal failure syndrome Father Lung cancer Mother No Known Problems Paternal Grandfather No Known Problems Paternal Grandmother Relation Status Comments Father Mother Paternal Grandfather Paternal Grandmother Social History Tobacco Use Types Packs/Day Years Used Date Smoking Tobacco: Some Days Cigarettes 0.3 45 Smokeless Tobacco: Never Tobacco Cessation:Ready to Q uit: No; Counseling Given: Yes Alcohol Use Standard Drinks/Week Comments Yes 0 (1 standard drink = 0.6 oz pur e alcohol) Comments Unknown Sex and Gender Information Value Date Recorded Sex Assigned at Not on file Legal Sex Female 1:39 PM [facility] Gender Identity Not on file Sexual Orientation Not on file Last Filed Vital Signs Vital Sign Reading Time Taken Comments Blood Pressure 110/68 05/03/2021 2:20 PM 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 POWERPLANT 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 Pulse - - Temperature 35.6 C (96.1 F) 05/03/2021 2:20 PM FAA 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 POWERPLANT 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 Respiratory Rate 18 05/03/2021 2:20 PM FAA 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 POWERPLANT 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 Oxygen Saturation - - Inhaled Oxygen Concentration - - Weight 56.7 kg (125 lb) 05/03/2021 2:20 PM FAA CERTIFIED POWERPLANT MECHANIC Height 160 cm (5' 3) 05/03/2021 2:20 PM 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
--- OUTSIDE RECORDS SUMMARY | 2024-08-12 06:35 | XMS_ITS | Referral Summary ---
Author Organization [facility] Address [address] [place] [id number] Care Team Providers Care Grounds Maintenance Manager Name Role Phone Unknown, Notinfile Primary Care Provider Unavail able Encounters Date Type Department Care Team Description 06/19/2024 8:18 PM CDT - 06/21/2024 11:00 AM CDT Hospital Encounter [address] [address] Vazquez Bolaños MD Saravanan, Pathanjali, MD Saturno Arias, Kai Reeves MD Pericardial effusion (noninflammatory) (Primary Dx) Discharge Disposition: Discharge to home or self care from Last 3 Months Allergies No known active allergies Medications amLODIPine (NORVASC) 5 mg tablet Take 1 tablet (5 mg total) by mouth daily 04/02/2021 Active ALPRAZolam (XANAX) 0.5 mg tablet Take 1 tablet (0.5 mg total) by mouth nightly as needed Active apixaban (ELIQUIS) 5 mg tablet Take 1 tablet (5 mg total) by mouth 2 (two) times a day 04/22/[address] (NexIUM) 20 mg capsule Take 1 capsule (20 mg total) by mouth daily 04/02/2021 Active metoprolol XL (TOPROL-XL) 25 mg extended release tablet Take 1 tablet (25 mg total) by mouth daily 12/27/2023 Active simvastatin (ZOCOR) 20 mg tablet Take 1 tablet (20 mg total) by mouth daily 04/02/[address] (CYMBALTA) 30 mg capsule Take 2 capsules (60 mg total) by mouth daily 04/02/2021 Active Trelegy Ellipta 100-62.5-25 mcg inhaler Inhale 1 puff as needed Active albuterol HFA (PROVENTIL HFA,VENTOLIN HFA,PROAIR HFA) 90 mcg/actuation inhaler Inhale 2 puffs every 6 (six) hours as needed 04/26/2021 Active buPROPion XL (WELLBUTRIN XL) 150 mg 24 hr tablet Take 1 tablet (150 mg total) by mouth daily Active ergocalciferol (VITAMIN D) 50,000 unit capsule Take 1 capsule (50,000 Units total) by mouth once a week Weekly on Sundays Active Active Problems Problem Noted Date Diagnosed Date Dyspnea and respiratory abnormalities 06/19/2024 Pericardial effusion (noninflammatory) COPD with exacerbation 06/19/2024 Pneumonia of both lower lobes due to infectious organism 06/19/2024 Social History Tobacco Use Types Packs/Day Years Used Date Smoking Tobacco: Former Cigarettes Passive Smoke Exposure: Never Smokeless Tobacco: Never Tobacco Cessation:Counseling Given: No [facility] Utilities Answer Date Recorded In the past 12 months has [employer] gas, oil, or water [employer] [place] threatened to shut off services in your home? No 06/20/2024 Social Connection and Isolat ion Panel [NHANES] Answer Date Recorded In a typical week, how many times do you talk on the phone with family, friends, or neighbors? More than three times a week 06/20/2024 How often do you get togethe r with friends or relatives? More than three times a week 06/20/2024 How often do you attend chur ch or amish services? 1 to 4 times per year 06/20/2024 Do you belong to any clubs o r organizations such as religious groups, unions, fraternal or athletic groups, or school groups? No 06/20/2024 How often do you attend meet ings of the clubs or organizations you belong to? 1 to 4 times per year 06/20/2024 Are you , , di vorced, , never , or living with a partner? 06/20/2024 Overall Financial Resource Strain (CARDIA) Answe r Date Recorded How hard is it for you to pa y for the very basics like food, housing, medical care, and heating? Not very hard 06/20/2024 Hunger Vital Sign Answer Date Recorded Within the past 12 months, y ou worried that your food would run out before you got the money to buy more. Never true 06/21/19 25 Within the past 12 months, t he food you bought just didn't last and you didn't have money to get more. Never true 06/20/2024 PRAPARE - Transportation Answer Date Re corded In the past 12 months, has l ack of transportation kept you from medical appointments or from getting medications? No 06/11 In the past 12 months, has l ack of transportation kept you from meetings, work, or from getting things needed for daily living? No 06/20/2024 Housing Stability Vital Sign Answer Michael e Recorded In the last 12 months, was t here a time when you were not able to pay the mortgage or rent on time? No 06/20/2024 In the past 12 months, how m any times have you moved where you were living? 0 06/20/2024 At any time in the past 12 m [facility], were you homeless or living in a long-term (including now)? No 06/20/2024 Personal Safety Answer Date Recorded Have you ever been in or are you currently in a harmful physical or emotional relationship or is someone making you feel afraid or unsafe? 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 Gender Identity Not on file Sexual Orientation Not on file Last Filed Vital Signs Vital Sign Reading Time Taken Comments Blood Pressure 144/85 06/21/2024 7:27 AM CDT Pulse 79 06/21/2024 7:27 AM CDT Temperature 36.9 C (98.4 F) 06/21/2024 7:27 AM CDT Respiratory Rate 18 06/21/2024 7:27 AM CDT Oxygen Saturation 94% 06/21/2024 7:27 AM CDT Inhaled Oxygen Concentration - - Weight 54.6 kg (120 lb 4.8 oz) 06/19/2024 8:41 P M CDT Height 160 cm (5' 3) 06/19/2024 8:41 PM CDT Body Mass Index 21.31 06/19/2024 8:41 PM CDT Plan of Treatment Not on file Procedures Procedure Name Priority Date/Time Associated Diagnosis Comments ECG 12-LEAD Routine 06/20/2024 10:35 AM CDT TRANSTHORACIC ECHO (TTE) COMPLETE W DOPPLER/CF WO CONTRAST Routine 06/20/2024 9:44 AM CDT BLOOD CULTURE STAT 06/20/2024 7:57 AM CDT BLOOD CULTURE STAT 06/20/2024 7:51 AM CDT EGFR Routine 06/20/2024 2:52 AM CDT DIFFERENTIAL AUTO Routine 06/20/2024 2:5 2 AM CDT PHOSPHORUS Routine 06/20/2024 2:52 AM CDT MAGNESIUM Routine 06/20/2024 2:52 AM CDT LIPID PANEL Routine 06/20/2024 2:52 AM CDT HEMOGLOBIN A1C Routine 06/20/2024 2:52 AM CDT THYROID FUNCTION CASCADE Routine 06/20/2024 2:52 AM CDT PROTIME-INR Routine 06/20/2024 2:52 AM CDT COMPREHENSIVE METABOLIC PANEL Routine 06/20/2024 2:52 AM CDT CBC WITH AUTO DIFFERENTIAL Routine 06/20/2024 2:52 AM CDT from Last 3 Months Results * ECG 12 lead (06/20/2024 10:35 AM CDT) Ventricular Rate EKG/Min 83 BPM [facility] Atrial Rate 83 BPM [facility] HI-Interval (MSEC) 144 ms [facility] QRS-Interval (MSEC) 84 ms [facility] QT-Interval (MSEC) 372 ms [facility] QTc 437 ms [facility] P [place] 85 degrees [facility] R [place] 83 degrees [facility] T [place] 93 degrees [facility] Diagnosis Normal sinus rhythm Normal ECG No previous ECGs available Confirmed by VELVET BHATTI M.D. ([id number]) on 06/21/2024 11:23:00 AM [facility] 06/20/2024 10:3 5 AM CDT 06/21/2024 11:23 AM CDT us Rell Monroy Jr., MD ECG ORDERABLES Final Result [facility] * TRANSTHORACIC ECHO (TTE) COMPLETE W DOPPLER/CF WO CONTRAST (06/20/2024 9:44 AM CDT) Anatomical Region Laterality Modality Ultrasound 06/20/2024 9:19 AM CDT Narrative 06/20/2024 12:04 PM CDT Transthoracic Echocardiographic Report ADDENDUM Patient Name: ZENA STONE E : 1955 (68y 9m) Gender: F Study Date: 06/20/2024 09:19:07 AM Ht(Inch): 63 Wt(Lb): 120 BSA: 1.56 Trust Mail Clerk: [facility] Location: [id number] Order Provider: JOHN PAUL ROBERTS Heart Rate: 95 BMI: 21.25 BP: 127/92 Ref Provider: JOHN PAUL ROBERTS PROCEDURES: Echocardiographic Report: ([id number]) Transthoracic complete echo, 2D, spectral and tissue Doppler, color flow Doppler, M-mode. INDICATIONS: Pericardial effusion. FINDINGS: Left Ventricle: Normal left ventricular cavity size. Normal Left ventricular wall thickness. The Ejection Fraction (Landa's) is measured at 69 %. Diastolic Function Left ventricular diastolic parameters are consistent with Grade I diastolic dysfunction (normal LA pressure). Right Ventricle: Grossly normal size and function. Left Atrium: The left atrium is normal in size. Right Atrium: The right atrium is normal in size. Mitral Valve: Mild mitral annular calcification. There is trace mitral valve regurgitation. No mitral valve stenosis. Aortic Valve: Aortic cusps appear mildly calcified. Mild aortic valve stenosis. The mean transaortic gradient is 14 mmHg. The aortic valve area by the continuity equation (using Peak Robert) is 1.13 cm2. Tricuspid Valve: There is mild tricuspid regurgitation. The estimated right ventricular systolic pressure is 26 mmHg. Pulmonic Valve: Pulmonic Valve not well visualized due to poor echo windows. There is trace pulmonic regurgitation. Pericardium: Moderate pericardial effusion. The pericardial effusion is anterior to the heart. The pericardial effusion measures 1. 7 cm. There is no obvious diastolic right ventricular or systolic right atrial collapse. There is no significant mitral or tricuspid flow variation. Thus no obvious 2D evidence of tamponade. Aorta: Normal aortic root. IVC: IVC is normal in size. The estimated RA pressure is 3 mmHg. CONCLUSIONS: 1. The Ejection Fraction (Landa's) is measured at 69 %. Diastolic Function Left ventricular diastolic parameters are consistent with Grade I diastolic dysfunction (normal LA pressure). 2. Mild mitral annular calcification. There is trace mitral valve regurgitation. 3. There is trace pulmonic regurgitation. 4. There is mild tricuspid regurgitation. The estimated right ventricular systolic pressure is 26 mmHg. 5. The pericardial effusion is anterior to the heart. The pericardial effusion measures 1. 7 cm. There is no obvious diastolic right ventricular or systolic right atrial collapse. There is no significant mitral or tricuspid flow variation. Thus no obvious 2D evidence of tamponade. MEASUREMENTS: 2D/MM Value Range Doppler Value LVIDd 2D 3.44 cm [ 3.50 - 5.70 ] AV Peak Robert 2.39 m/s LVIDs 2D 2.13 cm [ 3.10 - 4.60 ] AV Peak PG 22.85 mmHg IVSd 2D 0.89 cm [ 0.60 - 1.20 ] AV Mean PG 14.00 mmHg LVPWd 2D 0.98 cm [ 0.60 - 1.10 ] AV VTI 47.60 cm LV Thickness Ratio 0.91 LVOT Peak Robert 0.86 m/s LV Mass 2D 92.60 g LVOT Peak PG 2.96 mmHg LV Mass Index 2D 59.36 g/m2 LVOT Diam 2.00 cm RWT 0.57 HOLLIE Vmax 1.13 cm2 EF Mod BP 69 % [ 54 - 74 ] MV E Peak Robert 0.73 m/s LA Dimension 2D 3.00 cm [ 1.90 - 4.00 ] MV A Peak Robert 1.27 m/s LA Length 4C 3.17 cm MV E/A 0.60 ratio AoR Diam 2D 2.20 cm [ 2.00 - 3.70 ] MV Decel Time 53.00 msec Ao Root Index 1.41 cm/m2 [ 1.00 - 2.00 ] Med E` Robert 5.55 cm/sec Lat E` Robert 6.42 cm/sec Average E/E` 12.20 TR Peak Robert 2.40 m/s TR Peak PG 23.0 mmHg RA Pressure 3.00 mmHg RVSP 26.00 mmHg PV Peak Robert 0.80 m/s PV Peak PG 2.56 mmHg - ATTESTATION: I have reviewed and interpreted the pertinent images and measurements of this study. I attest to the conclusions in the final report that is provided above. DISCLAIMER: The study images and the final report will be retained in the patient chart by the Echo Laboratory for the legally required time period. This chart constitutes the legal record of any testing performed. Electronically Signed By: Rell Monroy Jr MD 2024-06-20 12:03:55 CDT Electronically Amended By: Rell Monroy Jr MD 06/20/2024 2:39:56 PM CDT [ADDENDUM] Procedure Note Rell Monroy Jr., MD - 06/20/2024 Transthoracic Echocardiographic Report ADDENDUM Patient Name: ZENA STONE E : 1955 (68y 9m) Gender: F Study Date: 06/20/2024 09:19:07 AM Ht(Inch): 63 Wt(Lb): 120 BSA: 1.56 Trust Mail Clerk: PHILLIP Butcher,T Location: [id number] Order Provider:JOHN PAUL ROBERTS Heart Rate: 95 BMI: 21.25 BP: 127/92 Ref Provider:JOHN PAUL ROBERTS PROCEDURES: Echocardiographic Report: ([id number]) Transthoracic complete echo, 2D,spectral and tissue Doppler, color flow Doppler, M-mode. INDICATIONS: Pericardial effusion. FINDINGS: Left Ventricle: Normal left ventricular cavity size. Normal Leftventricular wall thickness. The Ejection Fraction (Landa's) is measured at 69 %.Diastolic Function Left ventricular diastolic parameters are consistent with Grade I diastolicdysfunction (normal LA pressure). Right Ventricle: Grossly normal size and function. Left Atrium: The left atrium is normal in size. Right Atrium: The right atrium is normal in size. Mitral Valve: Mild mitral annular calcification. There is trace mitralvalve regurgitation. No mitral valve stenosis. Aortic Valve: Aortic cusps appear mildly calcified. Mild aortic valvestenosis. The mean transaortic gradient is 14 mmHg. The aortic valve area by the continuityequation (using Peak Robert) is 1.13 cm2. Tricuspid Valve: There is mild tricuspid regurgitation. The estimatedright ventricular systolic pressure is 26 mmHg. Pulmonic Valve: Pulmonic Valve not well visualized due to poor echowindows. There is trace pulmonic regurgitation. Pericardium: Moderate pericardial effusion. The pericardial effusion isanterior to the heart. The pericardial effusion measures 1. 7 cm. There is no obviousdiastolic right ventricular or systolic right atrial collapse. There is no significantmitral or tricuspid flow variation. Thus no obvious 2D evidence of tamponade. Aorta: Normal aortic root. IVC: IVC is normal in size. The estimated RA pressure is 3 mmHg. CONCLUSIONS: 1. The Ejection Fraction (Landa's) is measured at 69 %. DiastolicFunction Left ventricular diastolic parameters are consistent with Grade I diastolicdysfunction (normal LA pressure). 2. Mild mitral annular calcification. There is trace mitral valveregurgitation. 3. There is trace pulmonic regurgitation. 4. There is mild tricuspid regurgitation. The estimated right ventricularsystolic pressure is 26 mmHg. 5. The pericardial effusion is anterior to the heart. The pericardialeffusion measures 1. 7 cm. There is no obvious diastolic right ventricular or systolic rightatrial collapse. There is no significant mitral or tricuspid flow variation. Thusno obvious 2D evidence of tamponade. MEASUREMENTS: 2D/MM Value Range DopplerValue LVIDd 2D 3.44 cm [ 3.50 - 5.70 ] AV Peak Vel2.39 m/s LVIDs 2D 2.13 cm [ 3.10 - 4.60 ] AV Peak PG22.85 mmHg IVSd 2D 0.89 cm [ 0.60 - 1.20 ] AV Mean PG14.00 mmHg LVPWd 2D 0.98 cm [ 0.60 - 1.10 ] AV VTI47.60 cm LV Thickness Ratio 0.91 LVOT Peak Vel0.86 m/s LV Mass 2D 92.60 g LVOT Peak PG2.96 mmHg LV Mass Index 2D 59.36 g/m2 LVOT Diam2.00 cm RWT 0.57 HOLLIE Vmax1.13 cm2 EF Mod BP 69 % [ 54 - 74 ] MV E Peak Vel0.73 m/s LA Dimension 2D 3.00 cm [ 1.90 - 4.00 ] MV A Peak Vel1.27 m/s LA Length 4C 3.17 cm MV E/A0.60 ratio AoR Diam 2D 2.20 cm [ 2.00 - 3.70 ] MV Decel Time53.00 msec Ao Root Index 1.41 cm/m2 [ 1.00 - 2.00 ] Med E` Vel5.55 cm/sec Lat E` Robert 6.42 cm/sec Average E/E` 12.20 TR Peak Robert 2.40 m/s TR Peak PG 23.0 mmHg RA Pressure 3.00 mmHg RVSP 26.00 mmHg PV Peak Robert 0.80 m/s PV Peak PG 2.56 mmHg - ATTESTATION: I have reviewed and interpreted the pertinent images and measurements ofthis study. I attest to the conclusions in the final report that is provided above. DISCLAIMER: The study images and the final report will be retained in the patientchart by the Echo Laboratory for the legally required time period. This chart constitutesthe legal record of any testing performed. Electronically Signed By: Rell Monroy Jr MD 2024-06-20 12:03:55 CDT Electronically Amended By: Rell Monroy Jr MD 06/20/2024 2:39:56 PM CDT [ADDENDUM] John Paul Roberts MD CV ECHO PROCEDURES Edite d Result - Final * Blood culture Blood (06/20/2024 7:57 AM CDT) Report Final Report: No growth Comment:Testing performed by : [facility], [address] [facility], [place]., [address] Blood 06/20/2024 7:57 AM CDT 06/20/2024 12:29 PM CDT Ike CHUNG - 06/24/2024 4:00 PM CDT From a different site than #1. Collection->Peripheral 1. Blood cultures are incubated for 4 days on a continuously monitored blood culture system. The first report of a negative culture is issued within 24 hours of receipt of the specimen in the laboratory. 2. Positive culture results are reported as soon as they are detected. 3. The most important factor for detection of microbes in the setting of bloodstream infection is the volume of blood submitted for culture. Failure to collect an optimal blood volume can result in false negative blood cultures. 4. For pediatric patients, the recommended blood volume to collect follows a weight based strategy. See the electronic test catalog for collection instructions. 5. For positive blood cultures, a rapid molecular test may be performed for organism identification using the louisa ePlex blood culture identification panel for gram positive (BCID-GP) and gram negative (BCID-GN) organisms. This nucleic acid amplification test detects microbial DNA in positive blood culture broth. This assay has been cleared by the [place] Food and Drug Administration and its performance characteristics have been verified by the [facility] Microbiology Laboratory. For questions about this culture, contact the Microbiology Laboratory at [phone]. Interpretive data was last revised on 24. Kai Green MD LAB MICROBIOLOGY - [facility] ORDERABLES Final Result [facility] [address] [facility] Department [place] [address] * Blood culture Blood (06/20/2024 7:51 AM CDT) Report Final Report: No growth Comment:Testing performed by : [facility], [address] [place]., [address] Blood 06/20/2024 7:51 AM CDT 06/20/2024 12:29 PM CDT [facility] JULIET [facility] 06/24/2024 4:00 PM CDT Collection->Peripheral 1. Blood cultures are incubated for 4 days on a continuously monitored blood culture system. The first report of a negative culture is issued within 24 hours of receipt of the specimen in the laboratory. 2. Positive culture results are reported as soon as they are detected. 3. The most important factor for detection of microbes in the setting of bloodstream infection is the volume of blood submitted for culture. Failure to collect an optimal blood volume can result in false negative blood cultures. 4. For pediatric patients, the recommended blood volume to collect follows a weight based strategy. See the electronic test catalog for collection instructions. 5. For positive blood cultures, a rapid molecular test may be performed for organism identification using the louisa ePlex blood culture identification panel for gram positive (BCID-GP) and gram negative (BCID-GN) organisms. This nucleic acid amplification test detects microbial DNA in positive blood culture broth. This assay has been cleared by the [place] Food and Drug Administration and its performance characteristics have been verified by the [facility] Microbiology Laboratory. For questions about this culture, contact the Microbiology Laboratory at [phone]. Interpretive data was last revised on 24. Kai Green MD LAB MICROBIOLOGY - [facility] ORDERABLES Final Result JULIET [address] [address] * eGFR (06/20/2024 2:52 AM CDT) eGFR >90 >=60 mL/min/1. 73 m2 Comment: Interpretive Data Reference Interval Normal >/= 90 mL/min/1.73m2 Mildly decreased* 60 - 89 mL/min/1.73m2 Mildly to moderately decreased 45 - 59 mL/min/1.73m2 Moderately to severely decreased 30 - 44 mL/min/1.73m2 Severely decreased 15 - 29 mL/min/1.73m2 Kidney Failure < 15 mL/min/1.73m2 *Relative to young adult level Estimated glomerular filtration rate is determined by the 2020 CKD-EPI equation recommended by the National Kidney Foundation (A Unifying Approach to GFR Estimation: Recommendations of the NKF-ASK Task Force on Reassessing the Inclusion of Race in Diagnosing Kidney Disease, JASN 2020). The CKD-EPI equation should not be used for patients with unstable renal function and has not been validated in children and those over 70. Current interpretive data was last reviewed 2021. Blood 06/20/2024 2:52 AM CDT 06/20/2024 3:07 AM CDT John Paul Roberts MD LAB BLOOD ORDERABLES Fin al Result Performing Organization Address City/[facility]/ZIP Co de Phone Number JULIET [address] [place] [address] * (ABNORMAL) Differential, auto (06/20/2024 2:52 AM CDT) Pathologist [facility] Neutrophil abs 7.25(H) 1.50 - 6.50 K/cumm Imm gran abs 0.03 0.00 - 0.10 K/cumm [facility] Lymphocyte abs 0.60(L) 0.80 - 3.30 K/cumm [facility] Monocyte abs 0.41 0.20 - 0.80 K/cumm [facility] Eosinophil abs 0.00 0.00 - 0.50 K/cumm [facility] Basophil abs 0.01 0.00 - 0.10 K/cumm [facility] Neutrophil pct 87.4 % [facility] Comment: Interpretive Data Percent cell count reference ranges are not reported, since discordance with absolute values may lead to misinterpretation of CBC data. Current Interpretive Data was last revised on 2017. Imm gran pct 0.4 % [facility] Comment: Interpretive Data Percent cell count reference ranges are not reported, since discordance with absolute values may lead to misinterpretation of CBC data. Current Interpretive Data was last revised on 2017. Lymphocyte pct 7.2 % [facility] Comment: Interpretive Data Percent cell count reference ranges are not reported, since discordance with absolute values may lead to misinterpretation of CBC data. Current Interpretive Data was last revised on 2017. Monocyte pct 4.9 % [facility] Comment: Interpretive Data Percent cell count reference ranges are not reported, since discordance with absolute values may lead to misinterpretation of CBC data. Current Interpretive Data was last revised on 2017. Eosinophil pct 0.0 % [facility] Comment: Interpretive Data Percent cell count reference ranges are not reported, since discordance with absolute values may lead to misinterpretation of CBC data. Current Interpretive Data was last revised on 2017. Basophil pct 0.1 % [facility] Comment: Interpretive Data Percent cell count reference ranges are not reported, since discordance with absolute values may lead to misinterpretation of CBC data. Current Interpretive Data was last revised on 2017. Blood 06/20/2024 2:52 AM CDT 06/20/2024 3:09 AM CDT us John Paul Roberts MD LAB BLOOD ORDERABLES Fin al Result [address] [place] [address] * Thyroid Function [place] (06/20/2024 2:52 AM CDT) Pathologist [facility] TSH 0.51 0.30 - 4.20 mcIUnit/mL Blood 06/20/2024 2:52 AM CDT 06/20/2024 3:09 AM CDT John Paul Roberts MD LAB BLOOD ORDERABLES Fin al Result Performing Organization Address [facility] Co de Phone Number [address] [place] [address] * CBC with auto differential (06/20/2024 2:52 AM CDT) Pathologist [facility] WBC 8.30 3.80 - 9.90 K/cumm Hgb 12.8 11.9 - 15.5 g/dL [facility] Hct 39.3 35.6 - 45.5 % [facility] Plt 241 150 - 400 K/cumm [facility] MPV 10.0 9.1 - 12.3 fL [facility] RBC 4.37 3.90 - 5.20 M/cumm [facility] MCV 89.9 81.3 - 96.4 fL [facility] MCH 29.3 27.1 - 33.3 pg [facility] MCHC 32.6 32.3 - 35.7 g/dL [facility] RDW CV 13.0 11.1 - 14.9 % [facility] RDW SD 43.0 35.7 - 48.1 fL [facility] NRBC abs 0.00 0.00 - 0.01 K/cumm [facility] Blood 06/20/2024 2:52 AM CDT 06/20/2024 3:09 AM CDT John Paul Roberts MD LAB BLOOD ORDERABLES Fin al Result Performing Organization Address City/[facility]/ZIP Co de Phone Number [address] [place] [address] * Protime-INR (06/20/2024 2:52 AM CDT) PT 12.8 12.0 - 14.6 sec INR 1.0 0.9 - 1.2 JULIET Comment: Ref Range High Interpretive data Oral anticoagulant therapeutic ranges: Venous thromboembolism prophylaxis or treatment: 2.0-3.0 CARDIOLOGY Standard range: 2.0-3.0 High-intensity range: 2.5-3.5 Refer to indication-specific guidelines for appropriate target ranges for prosthetic heart valve replacement. Current interpretive data was last revised on 2019. Blood 06/20/2024 2:52 AM CDT 06/20/2024 3:09 AM CDT John Paul Roberts MD LAB BLOOD ORDERABLES Fin al Result Performing Organization Address [facility] de Phone Number [address] [place] [address] * Phosphorus (06/20/2024 2:52 AM CDT) Phosphorus, pl 2.9 2.3 - 4.5 mg/dL Blood 06/20/2024 2:52 AM CDT 06/20/2024 3:09 AM CDT John Paul Roberts MD LAB BLOOD ORDERABLES Fin al Result Performing Organization Address [facility] de Phone Number [address] [place] [address] * Magnesium (06/20/2024 2:52 AM CDT) Magnesium 2.0 1.4 - 2.5 mg/dL Blood 06/20/2024 2:52 AM CDT 06/20/2024 3:09 AM CDT John Paul Roberts MD LAB BLOOD ORDERABLES Fin al Result Performing Organization Address [facility] Co de Phone Number [address] [place] [address] * Hemoglobin A1c (06/20/2024 2:52 AM CDT) Hgb A1C 5.6 4.0 - 5.6 % Estimated Average Glucose 114 mg/dL JULIET Comment: The ADA recommends reporting an estimated Average Glucose (eAG) with all Hemoglobin A1c results using the equation derived from a study of 507 normal and diabetic adults. Minority populations were underrepresented and children were not included. (Diabetes Care 31:6426-8810, 2008). The eAG is not equivalent to a fasting glucose. Blood 06/20/2024 2:52 AM CDT 06/20/2024 3:09 AM CDT John Paul Roberts MD LAB BLOOD ORDERABLES Fin al Result [facility] [id number] [place] [address] * Lipid panel (06/20/2024 2:52 AM CDT) Cholesterol 177 30 - 199 mg/dL Comment: Interpretive Data Ages < or = 19 years Acceptable: <170 mg/dL Borderline high: 170-199 mg/dL High: >or= 200 mg/dL Ages > or = 20 years Desirable: <200 mg/dL Borderline high: 200-239 mg/dL High: >or= 240 mg/dL Literature References: 1. Expert Panel on Integrated Guidelines for Cardiovascular Health and Risk Reduction in Children and Adolescents. Pediatrics 2011;128:S213 2. NCEP Expert Panel. Circulation 2004;110:227 Current Interpretive Data was last revised on 2017. Triglycerides 69 <=149 mg/dL JULIET Comment: Interpretive Data Ages < or = 9 years Acceptable: <75 mg/dL Borderline high: 75-99 mg/dL High: >or= 100 mg/dL Ages 10 to 20 years Acceptable: <90 mg/dL Borderline high: 90-129 mg/dL High: >or= 130 mg/dL Ages > or = 20 years Desirable: <150 mg/dL Borderline high: 150-199 mg/dL High: 200-499 mg/dL Very high: >or= 499 mg/dL Literature References: 1. Expert Panel on Integrated Guidelines for Cardiovascular Health and Risk Reduction in Children and Adolescents. Pediatrics 2011;128:S213 2. NCEP Expert Panel. Circulation 2004;110:227 Current Interpretive Data was last revised on 2017. HDL 76 >=40 mg/dL JULIET Comment: Interpretive Data Ages < or = 19 years Acceptable: >45 mg/dL Borderline low: 40-45 mg/dL Low: <40 mg/dL Ages > or = 20 years Desirable: >or= 60 mg/dL Low: <40 mg/dL Literature References: 1. Expert Panel on Integrated Guidelines for Cardiovascular Health and Risk Reduction in Children and Adolescents. Pediatrics 2011;128:S213 2. NCEP Expert Panel. Circulation 2004;110:227 Current Interpretive Data was last revised on 2017. LDL, calculated 88 <=129 mg/dL JULIET Comment: Interpretive Data Ages < or = 19 years Acceptable: <110 mg/dL Borderline high: 110-129 mg/dL High: >or= 130 mg/dL Ages > or = 20 years Optimal: <100 mg/dL Near optimal: 100-129 mg/dL Borderline high: 130-159 mg/dL High: >160 mg/dL Calculated using the Abdi LDL-C estimating equation. This equation was implemented on 2023. Prior to this date LDL-C was estimated using the Friedewald equation. Literature References: 1. Expert Panel on Integrated Guidelines for Cardiovascular Health and Risk Reduction in Children and Adolescents. Pediatrics 2011;128:S213 2. NCEP Expert Panel. Circulation 2004;110:227 3. Abdi Gaffney al. LYN Cardiol. 2020 July 11;5(5):540-548. doi: 10.1001/jamacardio.2020.0013 Current Interpretive Data was last revised on 2023. Non-HDL Cholesterol 101 mg/dL JULIET MATTHEWS Comment: Interpretive Data Ages < or = 19 years Acceptable: <120 mg/dL Borderline high: 120-144 mg/dL High: >145 mg/dL Ages > or = 20 years When triglycerides are >200 mg/dL, Non-HDL cholesterol is a secondary target of therapy with treatment goals that are 30 mg/dL greater than the LDL cholesterol target. Literature References: 1. Expert Panel on Integrated Guidelines for Cardiovascular Health and Risk Reduction in Children and Adolescents. Pediatrics 2011;128:S213 2. NCEP Expert Panel. Circulation 2004;110:227 Current Interpretive Data was last revised on 2017. Chol/HDL ratio 2 [facility] Blood 06/20/2024 2:52 AM CDT 06/20/2024 3:09 AM CDT John Paul Roberts MD LAB BLOOD ORDERABLES Fin al Result [facility] [address] [facility] Department of Laboratories [place], [place] [id number] * (ABNORMAL) Comprehensive metabolic panel (06/20/2024 2:52 AM CDT) Sodium 139 135 - 145 mmol/L Potassium, pl 4.3 3.3 - 4.9 mmol/L [facility] Chloride 104 97 - 110 mmol/L [facility] CO2 23 22 - 32 mmol/L [facility] Anion gap 12 2 - 15 mmol/L [facility] BUN 17 6 - 25 mg/dL [facility] Creatinine 0.64 0.60 - 1.10 mg/dL [facility] Glucose 157 70 - 199 mg/dL [facility] Comment: Interpretive Data Fasting glucose >/= 126 mg/dl is diagnostic for diabetes. Fasting is defined as no caloric intake for at least 8 hours. Fasting glucose between 100 mg/dl to 125 mg/dl is diagnostic of prediabetes. In a patient with classic symptoms of hyperglycemia or hyperglycemic crisis, a random glucose >/= 200 mg/dl is diagnostic for diabetes. In the absence of unequivocal hyperglycemia, results should be confirmed by repeat testing. The classification and Diagnosis of Diabetes Diabetes Care 2022; 46: S19-S40. Current interpretive data was last revised 2022. Calcium 8.7 8.5 - 10.3 mg/dL [facility] Bilirubin, total <0.2 0.1 - 1.2 mg/dL [facility] Protein, pl 6.3(L) 6.5 - 8.5 g/dL [facility] Albumin 3.6 3.5 - 5.0 g/dL [facility] Alk phos 103 40 - 130 Units/L [facility] ALT 11 7 - 45 Units/L [facility] AST 22 10 - 45 Units/L [facility] Blood 06/20/2024 2:52 AM CDT 06/20/2024 3:07 AM CDT us John Paul Roberts MD LAB BLOOD ORDERABLES Fin al Result JULIET MATTHEWS [address] [facility] Department [place] [address] from Last 3 Months Insurance MEDICARE [facility] MEDICARE SUPPLEMENT Advance Directives For more information, please contact: [phone] * Full Code (Latest Code Status on File) Date Activated Date Inactivated Comments 06/19/2024 9:29 PM 06/21/2024 3:03 PM Care Teams Grounds Maintenance Manager Relationship Specialty Start Date End Date Unknown, Notinfile PCP - General 06/19/24
--- OUTSIDE RECORDS SUMMARY | 2024-08-12 06:35 | XMS_ITS | Clinical Summary ---
Author Organization [facility] Address [address] [place] [id number] Care Team Providers Care Pmp Certified Project Manager Name Role Phone Unknown, Notinfile Primary Care Provider Unavail able Allergies No known active allergies Medications amLODIPine [...] lower lobes due to infectious organism 06/19/2024 Encounters Date Type Department Care Team Description 06/19/2024 8:18 PM CDT - 06/21/2024 11:00 AM CDT Hospital Encounter [address] [address] Vazquez Bolaños MD Saravanan, Pathanjali, MD Saturno Arias, Kai Reeves MD Pericardial effusion (noninflammatory) (Primary Dx) Discharge Disposition: Discharge to home or self care from Last 3 Months Social History Tobacco Use Types Packs/Day Years Used Date Smoking Tobacco: Former Cigarettes Passive Smoke Exposure: Never Smokeless Tobacco: Never Tobacco Cessation:Counseling Given: No [facility] Utilities Answer Date Recorded In the past 12 months has [employer], oil, or water [employer] threatened to shut off services in your [...] often do you attend chur ch or roman catholic services? 1 to 4 times per year 06/20/2024 Do you belong to any clubs o r organizations such as jew groups, unions, fraternal or athletic groups, or [...] any time in the past 12 m [facility], were you homeless or living in a detention (including now)? No 06/20/2024 Personal Safety Answer Date Recorded Have you ever been in or are you currently in a harmful physical or emotional relationship or is someone making you feel afraid or unsafe? 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 Gender Identity Not on file Sexual Orientation Not on file Obstetrics History Last Filed Vital Signs Vital Sign Reading [...] 06/19/2024 8:41 PM CDT Plan of Treatment Health Maintenance Due Date Last Done Comments Breast Cancer Screening-Mammogram 1955 Colon Cancer Screening-Colonoscopy 1955 Depression Screening 1955 Hepatitis C Screening 1955 Osteoporosis Screening-Bone Density Scan 1955 Hepatitis B Screening 09/15/1971 Zoster Vaccine (1 of 2) 09/15/2003 Well Visit 65+ 2018 Covid-19 Vaccine (2023-2 5 season) 2023 07/31/2020, 06/18/2020, 05/21/2020 Fall Risk Assessment 06/21/2025 06/21/2024 DTaP/Tdap/Td Vaccine (2 - Td or Tdap) 09/24/2028 09/24/2018 Pneumococcal vaccine 65+ Completed 01/22/2020, 09/10 Influenza Vaccine Completed 12/29/2023, , 02/08/2021, Additional history exists Procedures Procedure Name Priority Date/Time Associated Diagnosis [...] ECG 12 lead (06/20/2024 10:35 AM CDT) Pathologist [facility] Ventricular Rate EKG/Min 83 BPM [facility] Atrial Rate 83 BPM [facility] TX-Interval (MSEC) 144 ms [facility] QRS-Interval (MSEC) 84 ms [facility] QT-Interval (MSEC) 372 ms [facility] QTc 437 ms [facility] P Temple 85 degrees [facility] R Temple 83 degrees [facility] T Temple 93 degrees [facility] Diagnosis Normal sinus rhythm Normal ECG No previous ECGs available Confirmed by VELVET BHATTI M.D. ([id number]) on 06/21/2024 11:23:00 AM [facility] 06/20/2024 10:3 5 AM CDT 06/21/2024 11:23 AM CDT us Rell Monroy Jr., MD ECG ORDERABLES Final Result [facility] * TRANSTHORACIC ECHO (TTE) COMPLETE W DOPPLER/CF WO CONTRAST (06/20/2024 9:44 AM CDT) Anatomical Region Laterality Modality Ultrasound 06/20/2024 9:19 AM CDT Narrative 06/20/2024 12:04 PM CDT Transthoracic Echocardiographic Report ADDENDUM Patient Name: ZENA STONEKarie : 1955 (68y 9m) Gender: F Study Date: 06/20/2024 09:19:07 AM Ht(Inch): 63 Wt(Lb): 120 BSA: 1.56 Pipe Layer Helper: PHILLIP Butcher,RVT Location: [id number] Order Provider: JO ANN ROBERTSHANK Heart Rate: 95 BMI: 21.25 BP: 127/92 Ref Provider: JOHN PAUL ROBERTS PROCEDURES: Echocardiographic Report: ([id number]) Transthoracic complete echo, 2D, spectral and tissue [...] Transthoracic Echocardiographic Report ADDENDUM Patient Name: ZENA STONEKarie : 1955 (68y 9m) Gender: F Study Date: 06/20/2024 09:19:07 AM Ht(Inch): 63 Wt(Lb): 120 BSA: 1.56 Pipe Layer Helper: PHILLIP ButcherMai Location: [id number] Order Provider:JOHN PAUL ROBERTS Heart Rate: 95 BMI: 21.25 BP: 127/92 Ref Provider:JOHN PAUL ROBERTS PROCEDURES: Echocardiographic Report: ([id number]) Transthoracic complete echo, 2D,spectral and tissue Doppler, [...] Report: No growth Comment:Testing performed by : [facility], [address] [place] [address] Blood 06/20/2024 7:57 AM CDT 06/20/2024 12:29 PM CDT Ike MATTHEWS - 06/24/2024 4:00 PM CDT From a [...] performance characteristics have been verified by the [facility] Microbiology Laboratory. For questions about this culture, contact the Microbiology Laboratory at [phone]. Interpretive data was last revised on 24. Kai Green MD LAB MICROBIOLOGY - [facility] ORDERABLES Final Result JULIET [address] [facility] Department of Laboratories [place], [place] [id number] * Blood culture Blood (06/20/2024 7:51 AM CDT) Report Final Report: No growth Comment:Testing performed by : [facility], [address] [facility], [place]., [address] Blood 06/20/2024 7:51 AM CDT 06/20/2024 12:29 PM CDT Narrative JULIET - 06/24/2024 4:00 PM CDT Collection->Peripheral 1. Blood [...] performance characteristics have been verified by the [facility] Microbiology Laboratory. For questions about this culture, contact the Microbiology Laboratory at [phone]. Interpretive data was last revised on 24. us Kai Green MD LAB MICROBIOLOGY - [facility] ORDERABLES Final Result JULIET [address] [facility] Department [place] [address] * eGFR (06/20/2024 2:52 AM CDT) eGFR [...] of Race in Diagnosing Kidney Disease, JASN 202). The CKD-EPI equation should not be used for patients with unstable renal function and has not been validated in children and those over 70. Current interpretive data was last reviewed 2021. Blood 06/20/2024 2:52 AM CDT 06/20/2024 3:07 AM CDT us John Paul Roberts MD LAB BLOOD ORDERABLES Fin al Result [facility] [address] [facility] Department [place] [address] * (ABNORMAL) Differential, auto (06/20/2024 2:52 AM CDT) Neutrophil abs 7.25(H) 1.50 - 6.50 K/cumm Imm gran abs 0.03 0.00 - 0.10 K/cumm [facility] Lymphocyte abs 0.60(L) 0.80 - 3.30 K/cumm [facility] Monocyte abs 0.41 0.20 - 0.80 K/cumm [facility] Eosinophil abs 0.00 0.00 - 0.50 K/cumm [facility] Basophil abs 0.01 0.00 - 0.10 K/cumm [facility] Neutrophil pct 87.4 % [facility] Comment: Interpretive Data Percent cell count reference ranges are not reported, since discordance with absolute values may lead to misinterpretation of CBC data. Current Interpretive Data was last revised on 2017. Imm gran pct 0.4 % [facility] Comment: Interpretive Data Percent cell count reference ranges are not reported, since discordance with absolute values may lead to misinterpretation of CBC data. Current Interpretive Data was last revised on 2017. Lymphocyte pct 7.2 % [facility] Comment: Interpretive Data Percent cell count reference ranges are not reported, since discordance with absolute values may lead to misinterpretation of CBC data. Current Interpretive Data was last revised on 2017. Monocyte pct 4.9 % [facility] Comment: Interpretive Data Percent cell count reference ranges are not reported, since discordance with absolute values may lead to misinterpretation of CBC data. Current Interpretive Data was last revised on 2017. Eosinophil pct 0.0 % [facility] Comment: Interpretive Data Percent cell count reference ranges are not reported, since discordance with absolute values may lead to misinterpretation of CBC data. Current Interpretive Data was last revised on 2017. Basophil pct 0.1 % [facility] Comment: Interpretive Data Percent cell count reference ranges are not reported, since discordance with absolute values may lead to misinterpretation of CBC data. Current Interpretive Data was last revised on 2017. Blood 06/20/2024 2:52 AM CDT 06/20/2024 3:09 AM CDT John Paul Roberts MD LAB BLOOD ORDERABLES Fin al Result Performing Organization Address [facility] Co de Phone Number [address] [place] [address] * Thyroid Function [place] (06/20/2024 2:52 AM CDT) Pathologist [facility] TSH 0.51 0.30 - 4.20 mcIUnit/mL Blood 06/20/2024 2:52 AM CDT 06/20/2024 3:09 AM CDT John Paul Roberts MD LAB BLOOD ORDERABLES Fin al Result Performing Organization Address City/[facility] Co de Phone Number [address] [place] [address] * CBC with auto differential (06/20/2024 2:52 AM CDT) WBC 8.30 3.80 - 9.90 K/cumm Hgb 12.8 11.9 - 15.5 g/dL [facility] Hct 39.3 35.6 - 45.5 % [facility] Plt 241 150 - 400 K/cumm [facility] MPV 10.0 9.1 - 12.3 fL [facility] RBC 4.37 3.90 - 5.20 M/cumm [facility] MCV 89.9 81.3 - 96.4 fL [facility] MCH 29.3 27.1 - 33.3 pg [facility] MCHC 32.6 32.3 - 35.7 g/dL [facility] RDW CV 13.0 11.1 - 14.9 % [facility] RDW SD 43.0 35.7 - 48.1 fL [facility] NRBC abs 0.00 0.00 - 0.01 K/cumm [facility] Blood 06/20/2024 2:52 AM CDT 06/20/2024 3:09 AM CDT John Paul Roberts MD LAB BLOOD ORDERABLES Fin al Result Performing Organization Address [facility] de Phone Number [address] [employer] [place], [place] [phone] * Protime-INR (06/20/2024 2:52 AM CDT) PT 12.8 12.0 - 14.6 sec INR 1.0 0.9 - 1.2 [facility] Comment: Ref Range High Interpretive data Oral [...] ORDERABLES Fin al Result Performing Organization Address [facility] de Phone Number [address] [employer] [place], [place] [phone] * Phosphorus (06/20/2024 2:52 AM CDT) Phosphorus, pl 2.9 2.3 - 4.5 mg/dL Blood 06/20/2024 2:52 AM CDT 06/20/2024 3:09 AM CDT John Paul Roberts MD LAB BLOOD ORDERABLES Fin al Result Performing Organization Address [facility] de Phone Number JULIET [address] [address] * Magnesium (06/20/2024 2:52 AM CDT) Magnesium 2.0 1.4 - 2.5 mg/dL Blood 06/20/2024 2:52 AM CDT 06/20/2024 3:09 AM CDT John Paul Roberts MD LAB BLOOD ORDERABLES Fin al Result Performing Organization Address [facility] Phone Number [address] [address] * Hemoglobin A1c (06/20/2024 2:52 AM CDT) Hgb A1C 5.6 4.0 - 5.6 % Estimated Average Glucose 114 mg/dL [facility] Comment: The ADA recommends reporting an estimated Average Glucose (eAG) with all Hemoglobin A1c results using the equation derived from a study of 507 normal and diabetic adults. Minority populations were underrepresented and children were not included. (Diabetes Care 31:1466-5486, 2008). The eAG is not equivalent to a fasting glucose. Blood 06/20/2024 2:52 AM CDT 06/20/2024 3:09 AM CDT John Paul Roberts MD LAB BLOOD ORDERABLES Fin al Result Performing Organization Address [facility] de Phone Number [address] [address] * Lipid panel (06/20/2024 2:52 AM CDT) [...] mg/dL High: >160 mg/dL Calculated using the Patton LDL-C estimating equation. This equation was implemented on 2023. Prior to this date LDL-C was estimated using the Friedewald equation. Literature References: 1. Expert Panel on Integrated Guidelines for Cardiovascular Health and Risk Reduction in Children and Adolescents. Pediatrics 2011;128:S213 2. NCEP Expert Panel. Circulation 2004;110:227 3. Abdi Cope et al. LYN Cardiol. 2019July 11;5(5):540-548. doi: 10.1001/jamacardio.2020.0013 Current Interpretive Data was last revised on 2023. Non-HDL Cholesterol 101 mg/dL [facility] Comment: Interpretive Data Ages < or = [...] last revised on 2017. Chol/HDL ratio 2 [facility] Blood 06/20/2024 2:52 AM CDT 06/20/2024 3:09 AM CDT John Paul Roberts MD LAB BLOOD ORDERABLES Fin al Result JULIET [address] [facility] Department [place] [address] * (ABNORMAL) Comprehensive metabolic panel (06/20/2024 2:52 AM CDT) [facility] Sodium 139 135 - 145 mmol/L Potassium, pl 4.3 3.3 - 4.9 mmol/L [facility] Chloride 104 97 - 110 mmol/L [facility] CO2 23 22 - 32 mmol/L [facility] Anion gap 12 2 - 15 mmol/L [facility] BUN 17 6 - 25 mg/dL [facility] Creatinine 0.64 0.60 - 1.10 mg/dL [facility] Glucose 157 70 - 199 mg/dL [facility] Comment: Interpretive Data Fasting glucose >/= 126 [...] classification and Diagnosis of Diabetes Diabetes Care 202; 46: S19-S40. Current interpretive data was last revised 2022. Calcium 8.7 8.5 - 10.3 mg/dL [facility] Bilirubin, total <0.2 0.1 - 1.2 mg/dL [facility] Protein, pl 6.3(L) 6.5 - 8.5 g/dL [facility] Albumin 3.6 3.5 - 5.0 g/dL [facility] Alk phos 103 40 - 130 Units/L [facility] ALT 11 7 - 45 Units/L [facility] AST 22 10 - 45 Units/L [facility] Blood 06/20/2024 2:52 AM CDT 06/20/2024 3:07 AM CDT John Paul Roberts MD LAB BLOOD ORDERABLES Fin al Result Performing Organization Address City/State/[facility] Co de Phone Number [facility] [address] [facility] [facility] Department of Laboratories [place], [place] [phone] from Last 3 Months Insurance MEDICARE [facility] MEDICARE SUPPLEMENT Advance Directives For more information, please contact: [phone] * Full Code (Latest Code Status on File) Date Activated Date Inactivated Comments 06/19/2024 9:29 PM 06/21/2024 3:03 PM Care Teams Pmp Certified Project Manager Relationship Specialty Start Date End Date Unknown, Notinfile PCP - General 06/19/24
[2024-08-12 07:14] LABS: Estimated Glomerular Filt Rate > 60
== END 2024-08-12 06:33 | disposition home or self-care (01) ==
PROVIDERS: PCP Family Medicine; Visit Provider Internal Medicine Hematology & Oncology
DX: C34.92 Malignant neoplasm of unspecified part of left bronchus or lung (principal); I31.39 Other pericardial effusion (noninflammatory)
CPT/HCPCS: 71260; Q9967

== ENCOUNTER 2024-11-18 14:24 | Outpatient (CLI) | payer MEDICARE, SELFPAY ==
--- OUTSIDE RECORDS SUMMARY | 2024-11-18 14:28 | XMS_ITS | Clinical Summary ---
Author Organization [facility] Address [address] [place] [address] Phone Care Team Providers Care Psychology Department Chair Name Role Phone Tanya Anand MD Primary Care Provider [phone] Allergies No known active allergies Medications simvastatin [...] 1,000 mcg by mouth daily. Active lidocaine-diphe lzoibgrpo-Er-cu gnesium-simethi cone (FIRST-Mouthwas h BLM) [phone] mg/30mL Mouthwash 10 mL by Mouth/Throat route [...] puffs by mouth every day 4 Active Eliquis 5 mg tablet TAKE 1 TABLET BY MOUTH TWICE A DAY 60 Tablet 3 5 Active Active Problems Problem Noted Date Diagnosed Date Non-small cell cancer of left lung 10/15/2021 Resolved Problems Problem Noted Date Diagnosed Date Resolved Date Mass of lower lobe of left lung 10/15/2021 Hilar mass 10/15/2021 Encounters Date Type Department Care Team Description 11/12/2024 External Device Data STL ABSTRACTION Provider, Abstract 10/30/2024 External Device Data STL ABSTRACTION Provider, Abstract 10/22/2024 External Device Data STL ABSTRACTION Provider, Abstract 09/25/2024 External Device Data STL ABSTRACTION Provider, Abstract 09/25/2024 External Device Data STL ABSTRACTION Provider, Abstract 2024 Refill [facility] Oncology and Hematology [facility] [address] [place] [address] Kallie Espinosa MD 09/03/2024 External Device Data STL ABSTRACTION Provider, Abstract 08/26/2024 Orders Only [facility] Oncology and Hematology [facility] [address] [place] [address] Jose Kelley MD 08/23/2024 10:30 AM CDT Office Visit [facility] Oncology and Hematology [facility] [address] [place] [address] Jose Kelley MD Non-small cell cancer of left lung (CMS/HCC) (Primary Dx) 08/23/2024 Orders Only [facility] Oncology and Hematology [address] [place] [address] Jose Kelley MD from Last 3 Months Immunizations Immunization Administration [...] Sign Reading Time Taken Comments Blood Pressure 112/76 08/23/2024 10:28 AM CDT Pulse 106 08/23/2024 10:28 AM CDT Temperature 36.8 C (98.2 F) 08/23/2024 10:28 AM CDT Respiratory Rate 15 08/23/2024 10:28 AM CDT Oxygen Saturation 91% 08/23/2024 10:28 AM CDT Inhaled Oxygen Concentration - - Weight 53.6 kg (118 lb 3.2 oz) 08/23/2024 10:28 AM CDT Height 160 cm (5' 3) 12/29/2021 8:33 AM CDT Body Mass Index 20.94 12/29/2021 8:33 AM CDT Plan of Treatment Upcoming Encounters Date Type Department Care Team (Late st Contact Info) Description 12/20/2024 11:15 AM CDT Office Visit [facility] Oncology and Hematology - [place] [address] [facility] [address] [place] [address] Jose eKlley MD [address] [facility] [address] [place] [address] Health Maintenance Due Date Last Done Comments DTAP/TDAP/TD VACCINES (1 - Tdap) 1972 PNEUMOCOCCAL VACCINE 50+ YEA RS (1 of 2 - PCV) 1972 FIT-DNA Q 3 years 1998 FIT/FOBT Q 1 year 1998 Flex Sig/CT Colonography Q 5 years 1998 ZOSTER VACCINE (1 of 2) 09/15/2003 RSV VACCINE (60+ or ) (1 - Risk 60-74 years 1-dose series) 2013 BREAST CANCER SCREENING 02/09/2024 02/09/20 23, 02/08/2023, 09/30/2020, Additional history exists INFLUENZA VACCINE (#1) 2024 12/12/2020 COVID-19 Vaccine (3 - 2024-2 6 season) 2024 06/18/2020, 05/21/2020 OSTEOPOROSIS SCREENING 09/30/2025 09/30/2020 COLORECTAL SCREENING 03/15/2033 03/15/2023 Colorectal Cancer Screening 03/15/2033 Procedures Procedure Name Priority Date/Time Associated Diagnosis Comments COMPREHENSIVE METABOLIC PANEL Routine 08/23/2024 1:54 PM CDT BASIC METABOLIC PANEL Routine 08/23/2024 1:05 PM CDT CBC WITH AUTODIFFERENTIAL Routine 2024 1:02 PM CDT from Last 3 Months Results * COMPREHENSIVE METABOLIC PANEL (08/23/2024 1:54 PM CDT) Blood us Jose Kelley MD CHEMISTRY ORDERABLES Final Resu lt * BASIC METABOLIC PANEL (08/23/2024 1:05 PM CDT) Blood us Jose Kelley MD CHEMISTRY ORDERABLES Final Resu lt * CBC WITH AUTODIFFERENTIAL (08/23/2024 1:02 PM CDT) Blood us Jose Kelley MD HEMATOLOGY ORDERABLES Final Res ult from Last 3 Months Insurance MEDICARE PART A AND B MEDICARE PART A AND B BCBS SUPP Care Teams Psychology Department Chair Relationship Specialty Start Date End Date Tanya Anand MD [address] [place] [id number] PCP - General Family Practice 10/07/21
--- OUTSIDE RECORDS SUMMARY | 2024-11-18 14:28 | XMS_ITS | Clinical Summary ---
Author Organization [facility] Address [address] [place] [address] Phone Care Team Providers Care Link Machine Operator Name Role Phone Tanya Anand MD Primary Care Provider [phone] Allergies No known active allergies Medications albuterol [...] 2 Active ergocalciferol (VITAMIN D2) 1.25 MG (60591 UT) capsule 2 Active esomeprazole (NexIUM) 20 [...] on file Legal Sex Female 1:39 PM [facility] Gender Identity Not on file Sexual Orientation Not on file Last Filed Vital Signs Vital Sign Reading Time Taken Comments Blood Pressure 110/68 05/03/2021 2:20 PM DISTRIBUTION DISPATCHER Pulse - - Temperature 35.6 C (96.1 F) 05/03/2021 2:20 PM DISTRIBUTION DISPATCHER Respiratory Rate 18 05/03/2021 2:20 PM DISTRIBUTION DISPATCHER Oxygen Saturation - - Inhaled Oxygen Concentration - - Weight 56.7 kg (125 lb) 05/03/2021 2:20 PM DISTRIBUTION DISPATCHER Height 160 cm (5' 3) 05/03/2021 2:20 PM DISTRIBUTION DISPATCHER Body Mass Index 22.14 05/03/2021 2:20 PM DISTRIBUTION DISPATCHER Plan of Treatment Health Maintenance Due Date Last Done Comments Pneumococcal PPSV23/PCV13 65 + Years / Low and Medium Risk (1 of 2 - PCV) 09/15/2003 Influenza Vaccine (#1) 2024 Insurance MEDICARE Care Teams Link Machine Operator Relationship Specialty Start Date End Date Tanya Anand MD [address] [place] [address] PCP - General Internal Medicine 04/27/21
--- OUTSIDE RECORDS SUMMARY | 2024-11-18 14:28 | XMS_ITS | Clinical Summary ---
Author Organization [facility] Address [address] [place] [address] Care Team Providers Care Geography Professor Name Role Phone Unknown, Notinfile Primary Care [...] Smokeless Tobacco: Never Tobacco Cessation:Counseling Given: No [facility] Utilities Answer Date Recorded In the past 12 months has th e [employer], gas, oil, or water [employer] threatened to shut off services in your home? No 06/20/2024 Social Connection and Isolation Panel Answer Date Recorded In a typical week, how many times do you talk on the phone with family, friends, or neighbors? More than three times a week 06/20/2024 How often do you get togethe r with friends or relatives? More than three times a week 06/20/2024 How often do you attend [facility] or sikh services? 1 to 4 times per year 06/20/2024 Do you belong to any clubs o r organizations such as yazidism groups, unions, fraternal or athletic groups, or [...] time in the past 12 m [facility], were you homeless or living in a nursing home (including now)? No 06/20/2024 Personal Safety Answer Date Recorded Have you ever been in or are you currently in a harmful physical or emotional relationship or is someone making you feel afraid or unsafe? 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 Gender Identity Not on file Sexual Orientation [...] (2023-2 5 season) 2023 07/31/2020, 06/18/2020, 05/21/2020 Influenza Vaccine (#1) 2024 , 03/22/2023, 02/08/2021, Additional history exists Fall Risk Assessment 06/21/2025 06/21/2024 DTaP/Tdap/Td Vaccine (2 - Td or Tdap) 09/24/2028 09/24/2018 Pneumococcal vaccine 65+ Completed 01/22/2020, 09/10 Insurance MEDICARE [facility] MEDICARE SUPPLEMENT Advance Directives For more information, please contact: [phone] * Full Code (Latest Code Status on File) Date Activated Date Inactivated Comments 06/19/2024 9:29 PM 06/21/2024 3:03 PM Care Teams Geography Professor Relationship Specialty Start Date End Date Unknown, Notinfile PCP - General 06/19/24
--- NOTE | 2024-11-18 14:44 | ECHO_ITS ---
Patient Info Name: Zena Stone Age: 69 years : 1955 Gender: Female Ht: 63 in Wt: 120 lbs BSA: 1.56 m2 HR: 109 bpm BP: 134 / 84 mmHg Technical Quality: Good Exam Date: 11/18/2024 3:04 PM Patient Status: O Admit Date: 11/18/2024 Exam Type: CA echo doppler color flow Complete two-dimensional, color flow and Doppler transthoracic echocardiogram is performed. Surgical Aides Teacher: Kait Santoyo Attending Provider: Alexx Crook DO Summary 1. Complete two-dimensional, color flow and Doppler transthoracic echocardiogram is performed. 2. Left ventricular chamber dimension is normal. 3. Left ventricular systolic function is normal, estimated at 65-70. 4. There is mild concentric increased left ventricular wall thickness. 5. The left ventricular diastolic function is grade I diastolic dysfunction. 6. E/e' 17 is elevated. 7. Left atrial chamber dimension is mildly enlarged. 8. There is moderate aortic valve sclerosis. 9. There is moderate aortic valve stenosis with a peak velocity of 251 cm/s, mean gradient of 16 mmHg, and aortic valve area of 1.3 cm2. 10. The mitral valve has a mildly calcified annulus. 11. There is mild tricuspid valve regurgitation. 12. No pulmonary hypertension, estimated pulmonary arterial systolic pressure is 31 mmHg. 13. There is small to moderate right sided pericardial effusion measuring 1.1 cm in thickness. Left Ventricle E/e' 17 is elevated. Left ventricular chamber dimension is normal. Left ventricular systolic function is normal, estimated at 65-70. There is mild concentric increased left ventricular wall thickness. The left ventricular diastolic function is grade I diastolic dysfunction. Right Ventricle Right ventricular chamber dimension is normal. Right ventricular systolic function is normal. Left Atria Left atrial chamber dimension is mildly enlarged. Right Atria Right atrial chamber dimension is normal. Aortic Valve The aortic valve is trileaflet. There is moderate aortic valve sclerosis. There is moderate aortic valve stenosis with a peak velocity of 251 cm/s, mean gradient of 16 mmHg, and aortic valve area of 1.3 cm2. There is no aortic valve regurgitation. Pulmonic Valve There is no pulmonic regurgitation. Mitral Valve The mitral valve has a mildly calcified annulus. There is no mitral valve stenosis. There is no mitral valve regurgitation. Tricuspid Valve There is mild tricuspid valve regurgitation. No pulmonary hypertension, estimated pulmonary arterial systolic pressure is 31 mmHg. Pericardium/Pleural There is small to moderate right sided pericardial effusion measuring 1.1 cm in thickness. No cardiac tamponade. Inferior Vena Cava Normal inferior vena cava with >50% collapse upon inspiration consistent with normal right atrial pressure, 5 mmHg. Aorta The aortic root size at the sinus of Valsalva is normal. Left Ventricular Outflow Tract Name Value Normal LVOT 2D LVOT Diameter 1.9 cm LVOT Doppler LVOT Peak Velocity 118 cm/s LVOT Peak Gradient 6 mmHg LVOT Mean Gradient 3 mmHg LVOT VTI 21 cm LVOT VTI/AV VTI Ratio 0.5 LVOT Stroke Volume 59 ml LVOT CO 14.5 l/min LVOT CI 9.3 l/min/m2 Pulmonic Valve Name Value Normal PV Doppler PV Peak Velocity 91 cm/s PV Peak Gradient 3 mmHg Mitral Valve Name Value Normal MV Diastolic Function MV E Peak Velocity 77 cm/s MV A Peak Velocity 156 cm/s MV E/A 0.5 MV Decel Time (PW) 127 ms MV Annular TDI MV E/e' (Septal) 14.6 MV E/e' (Lateral) 20.5 MV E/e' (Average) 17.5 Tricuspid Valve Name Value Normal TV Regurgitation Doppler TR Peak Velocity 257 cm/s TR Peak Gradient 26 mmHg Estimated PAP/RSVP RA Pressure 5 mmHg <=5 PA Systolic Pressure 31 mmHg <36 RV Systolic Pressure 31 mmHg <36 TV Annular TDI TV Lateral Edith s' Velocity 12.6 cm/s >=9.5 Aorta Name Value Normal Ascending Aorta Ao Root Diameter (MM) 2.8 cm Ao Root Diam Index (MM) 1.8 cm/m2 Aortic Valve Name Value Normal AV Doppler AV Peak Velocity 251 cm/s AV Peak Gradient 25 mmHg AV Mean Gradient 16 mmHg AV VTI 45 cm AV Area (Cont Eq VTI) 1.3 cm2 >=3.0 AV Area (Cont Eq Robert) 1.3 cm2 AV DI (Robert) 0.47 AV Regurgitation 2D LVOT Area 2.8 cm2 Ventricles Name Value Normal LV Dimensions 2D/MM IVS Diastolic Thickness (2D) 1.3 cm 0.6-1.0 LVID Diastole (2D) 3.0 cm 3.8-5.2 LVIW Diastolic Thickness (2D) 1.2 cm 0.6-0.9 LVID Systole (2D) 2.3 cm 2.2-3.5 LVOT Diameter 1.9 cm LV Mass (2D Cubed) 121.58 g 67.00-162.00 LV Mass Index (2D Cubed) 78 g/m2 43-95 Relative Wall Thickness (2D) 0.79 <=0.42 LV Fractional Shortening/Ejection Fraction 2D/MM LV Fractional Shortening (2D) 24 % 27-45 LV EF (2D Teichholz) 50 % LV Diastolic Volume (4C MOD) 65 ml LV EF (4C MOD) 65 % LV Diastolic Volume (2C MOD) 75 ml LV EF (2C MOD) 72 % LV Diastolic Volume (BP MOD) 71 ml 46-106 LV Diastolic Volume Index (BP MOD) 46 ml/m2 29-61 LV Systolic Volume (BP MOD) 23 ml 14-42 LV Systolic Volume Index (BP MOD) 15 ml/m2 8-24 LV EF (BP MOD) 68 % 54-74 LV Diastolic Length (4C) 6.6 cm LV Systolic Length (4C) 5.0 cm LV Stroke Volume (4C MOD) 42 ml RV Dimensions 2D/MM RVID Diastole (2D) 3.3 cm 2.1-3.5 Atria Name Value Normal LA Dimensions LA Dimension (MM) 3.1 cm 2.7-3.8 LA Volume (4C A-L) 30 ml LA Volume (BP A-L) 28 ml RA Dimensions RA Systolic Major Byron Length (4C) 3.4 cm 2.2-2.8 RA Area (4C) 9.8 cm2 <=18.0 Report Signatures
== END 2024-11-18 14:25 | disposition home or self-care (01) ==
LOC: ANHCARD 14:25
PROVIDERS: PCP Family Medicine; Visit Provider Internal Medicine Cardiovascular Disease
DX: I31.39 Other pericardial effusion (noninflammatory) (principal); I34.0 Nonrheumatic mitral (valve) insufficiency; I35.1 Nonrheumatic aortic (valve) insufficiency; I36.1 Nonrheumatic tricuspid (valve) insufficiency
CPT/HCPCS: 93306

== ENCOUNTER 2024-12-11 07:24 | Outpatient (CLI) | payer MEDICARE, SELFPAY ==
--- NOTE | ~2024-12-11 | CT_ITS ---
Exam: CT chest with contrast Clinical History: [Non-small cell cancer of the left lung ] Comparison: [ 08/12/2024, 04/11/2024, 01/02/2024 and 09/25/2023] Technique: Multiple axial CT images of the chest with IV contrast. Sagittal and coronal reformatted images were obtained. FINDINGS: Lungs and pleura: [ Mild centrilobular emphysema, unchanged. Mild biapical scarring, unchanged.] New 4 mm noncalcified pulmonary nodule in the right lower lobe. Stable small reticulonodular in the right lower lobe. Mediastinum and pulmonary sindy: [ No mass or adenopathy.] Axillary/intramammary and supraclavicular: Grossly stable coarsely calcified masslike lesions or lymph nodes in the AP window region and left hilar region. Grossly stable consolidation extending from the left hilum to the periphery of the left lung at the left upper lobe and superior segment of the left lower lobe. Grossly stable left-sided volume loss. Heart and great vessels: [ Normal heart size.[ [ Moderate-sized pericardial effusion, unchanged.] [ No aneurysm.] Moderate as described disease in the thoracic aorta. Chest Wall: [ Unremarkable.] Upper Abdomen: Stable cyst in the right kidney. Osseous structures: [ No acute fracture lesion.] [ Multilevel degenerative change in the visualized spine.] Additional findings: [ None of significance.] IMPRESSION: 1. Overall, grossly stable findings in the left hemithorax as compared to the chest CT study from 08/12/2024. 2. There is a new 4 mm noncalcified pulmonary nodule in the right lower lobe. A follow-up chest CT in 3 months recommended. Reviewed, dictated and finalized at location Q. IMPRESSION: 1. Overall, grossly stable findings in the left hemithorax as compared to the c hest CT study from 08/12/2024. 2. There is a new 4 mm noncalcified pulmonary nodule in the right lower lobe. A follow-up chest CT in 3 months recommended.
--- OUTSIDE RECORDS SUMMARY | 2024-12-11 07:28 | XMS_ITS | Clinical Summary ---
Author Organization [facility] Address [address] [place] [id number] Care Team Providers Care Voice Over Announcer Name Role Phone Unknown, Notinfile Primary Care [...] Smokeless Tobacco: Never Tobacco Cessation:Counseling Given: No [facility] Utilities Answer Date Recorded In the past 12 months has th e [employer], gas, oil, or water [employer] threatened to shut off services in your [...] week 06/20/2024 How often do you attend [facility] or episcopal services? 1 to 4 times per year 06/20/2024 Do you belong to any clubs o r organizations such as baptist groups, unions, fraternal or athletic groups, or [...] any time in the past 12 m [facility], were you homeless or living in a fci (including now)? No 06/20/2024 Personal Safety Answer Date Recorded Have you ever been in or are you currently in a harmful physical or emotional relationship or is someone making you feel afraid or unsafe? 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 MEDICARE SUPPLEMENT Advance Directives For more information, please contact: [phone] * Full Code (Latest Code Status on File) Date Activated Date Inactivated Comments 06/19/2024 9:29 PM 06/21/2024 3:03 PM Care Teams Voice Over Announcer Relationship Specialty Start Date End Date Unknown, Notinfile PCP - General 06/19/24
--- OUTSIDE RECORDS SUMMARY | 2024-12-11 07:28 | XMS_ITS | Clinical Summary ---
Author Organization [facility] Address [address] [place] [address] Care Team Providers Care Shipping And Receiving Weigher Name Role Phone Unavailable Primary Care Provider Unavailabl e Allergies No known active allergies Medications amLODIPine (NORVASC) 5 MG tablet Take 1 tablet (5 mg total) by mouth daily. Active buPROPion XL (WELLBUTRIN XL) 150 MG 24 hr tablet Take 1 tablet (150 mg total) by mouth daily. Active DULoxetine (CYMBALTA) 30 MG capsule Take 2 capsules (60 mg total) by mouth daily. Active vitamin D2 (ERGOCALCIFEROL ) 200 mcg/mL Solution solution Take by mouth daily. Active esomeprazole (NEXIUM) 20 MG capsule Take 1 capsule (20 mg total) by mouth every morning before breakfast. Active metoprolol succinate ER (TOPROL-XL) 25 MG 24 hr tablet Take 1 tablet (25 mg total) by mouth daily. Active simvastatin (ZOCOR) 20 MG tablet Take 1 tablet (20 mg total) by mouth nightly at bedtime. Active apixaban (ELIQUIS) 5 MG tablet Take 1 tablet (5 mg total) by mouth 2 (two) times daily. Active Fluticasone-Ume clidin-Vilant (TRELEGY ELLIPTA) 100-62.5-25 MCG/ACT AEROSOL POWDER, BREATH ACTIVATED Active albuterol sulfate HFA 108 (90 Base) MCG/ACT inhaler Inhale 2 puffs into the lungs every 6 (six) hours as needed for Wheezing. Active ALPRAZolam (XANAX) 0.5 MG tablet Take 1 tablet (0.5 mg total) by mouth nightly as needed for Sleep. Active Social History Tobacco Use Types Packs/Day Years Used Date Smoking Tobacco: Former Cigarettes Smokeless Tobacco: Never Alcohol Use Standard Drinks/Week Comments Not Currently 0 (1 standard drink = 0.6 oz pur e alcohol) Comments Unknown Sex and Gender Information Value Date Recorded Sex Assigned at Female 06/19/2024 10:30 AM CDT Legal Sex Female 8:20 PM CDT Gender Identity Not on file Sexual Orientation Not on file Last Filed Vital Signs Vital Sign Reading Time Taken Comments Blood Pressure 151/69 06/19/2024 6:00 PM CDT Pulse 112 06/19/2024 6:00 PM CDT Temperature 36.2 C (97.1 F) 06/19/2024 10:30 AM CDT Respiratory Rate 28 06/19/2024 6:00 PM CDT Oxygen Saturation 93% 06/19/2024 6:00 PM CDT Inhaled Oxygen Concentration - - Weight 54.6 kg (120 lb 5.9 oz) 06/19/2024 10:33 AM CDT Height 160 cm (5' 3) 06/19/2024 10:33 AM CDT Body Mass Index 21.32 06/19/2024 10:33 AM CDT Plan of Treatment Health Maintenance Due Date Last Done Comments Colorectal Cancer Screening Colonoscopy (10 Years) 1955 Hepatitis C 09/15/1971 Mammogram Screening 1993 Zoster Vaccines (1 of 2) 09/15/2003 Annual Medicare Wellness Visit 2018 Dexa Scan (General) 2018 COVID-19 Vaccine (3 - 2024-2 6 season) 2024 06/18/2020, 05/21/2020 RSV Immunization or 60+ Years (1 - 1-dose 75+ series) 2028 DTaP, Tdap and Td Vaccines ( 2 - Td or Tdap) 09/24/2028 09/24/2018 Pneumococcal Vaccine: 50+ Years Completed 01/22/2020, 09/19/2018 Meningococcal B Vaccine Aged Out No l onger eligible based on patient's age to complete this topic Meningococcal Vaccine Aged Out No samir marla eligible based on patient's age to complete this topic RSV Immunizations Under 20 Months Aged Out No longer eligible b ased on patient's age to complete this topic Insurance [facility] MEDICARE
--- OUTSIDE RECORDS SUMMARY | 2024-12-11 07:28 | XMS_ITS | Clinical Summary ---
Author Organization [facility] Address [address] [place] [phone] Phone Care Team Providers Care Paper Cone Maker Name Role Phone Tanya Anand MD Primary Care Provider [phone] Allergies No known active allergies Medications albuterol [...] 2 Active ergocalciferol (VITAMIN D2) 1.25 MG (18334 UT) capsule 2 Active esomeprazole (NexIUM) 20 [...] on file Legal Sex Female 1:39 PM [facility] Gender Identity Not on file Sexual Orientation Not on file Last Filed Vital Signs Vital Sign Reading Time Taken Comments Blood Pressure 110/68 05/03/2021 2:20 PM SHELLS INSPECTOR Pulse - - Temperature 35.6 C (96.1 F) 05/03/2021 2:20 PM SHELLS INSPECTOR Respiratory Rate 18 05/03/2021 2:20 PM SHELLS INSPECTOR Oxygen Saturation - - Inhaled Oxygen Concentration - - Weight 56.7 kg (125 lb) 05/03/2021 2:20 PM SHELLS INSPECTOR Height 160 cm (5' 3) 05/03/2021 2:20 PM SHELLS INSPECTOR Body Mass Index 22.14 05/03/2021 2:20 PM SHELLS INSPECTOR Plan of Treatment Health Maintenance Due Date Last Done Comments Pneumococcal PPSV23/PCV13 65 + Years / Low and Medium Risk (1 of 2 - PCV) 09/15/2003 Influenza Vaccine (#1) 2024 Insurance MEDICARE Care Teams Paper Cone Maker Relationship Specialty Start Date End Date Tanya Anand MD [address] [place] [address] PCP - General Internal Medicine 04/27/21
--- OUTSIDE RECORDS SUMMARY | 2024-12-11 07:29 | XMS_ITS | Clinical Summary ---
Author Organization [facility] Address [address] [place] [address] Phone Care Team Providers Care Image Editor Name Role Phone Tanya Anand MD Primary Care Provider [phone] Allergies No known active allergies Medications simvastatin [...] 1,000 mcg by mouth daily. Active lidocaine-diphe axgpufxhu-Cj-sl gnesium-simethi cone (FIRST-Mouthwas h BLM) [phone] mg/30mL Mouthwash 10 mL by Mouth/Throat route [...] Encounters Date Type Department Care Team Description 11/26/2024 External Device Data STL ABSTRACTION Provider, Abstract 11/12/2024 External Device Data STL ABSTRACTION Provider, Abstract 10/30/2024 External Device Data STL ABSTRACTION Provider, Abstract 10/22/2024 External Device Data STL ABSTRACTION Provider, Abstract 09/25/2024 External Device Data STL ABSTRACTION Provider, Abstract 09/25/2024 External Device Data STL ABSTRACTION Provider, Abstract 2024 Refill [facility] Oncology and Hematology - [address] [place] [address] Kallie Espinosa MD from Last 3 Months Immunizations Immunization [...] Description 12/20/2024 11:15 AM CDT Office Visit [facility] Oncology and Hematology [facility] [address] [facility] [address] [place] [address] Jose Kelley MD [address] [facility] [address] [place] [address] Health Maintenance Due Date Last [...] AND B MEDICARE PART A AND B [facility] SUPP Care Teams Image Editor Relationship Specialty Start Date End Date Tanya Anand MD [address] [place] [address] PCP - General Family Practice 10/07/21
[2024-12-11 07:44] LABS: Estimated Glomerular Filt Rate > 60
== END 2024-12-11 07:25 | disposition home or self-care (01) ==
PROVIDERS: PCP Student in an Organized Health Care Education/Training Program; Visit Provider Internal Medicine Hematology & Oncology
DX: C34.92 Malignant neoplasm of unspecified part of left bronchus or lung (principal); R91.1 Solitary pulmonary nodule
CPT/HCPCS: 71260; Q9967